=== PATIENT | female | born 1965 | race Two or more races ===

== ENCOUNTER 2024-12-30 17:03 | Inpatient (IN) | payer MEDICAID, OTHER ==
[~2024-12-30] VITALS: Ht 165.1 cm; Wt 83.5 kg
[2024-12-30] VITALS (21 sets, daily range): BP systolic 78–162; BP diastolic 14–102; PULSE 88–107; RESP 18–35; TEMP 97.7–98; O2SAT 96–100
--- NOTE | 2024-12-30 17:40 | ED.PDOC ---
HPI Comments This is a 59 year old female BIBA presenting to the ED with chief complaint of SOB. EMS reports patient has been experiencing SOB with associated nausea, vomiting, diaphoresis, pale skin, and hypotension for the past 2 days. EMS relays that the patient's BG was noted to be 337. Patient coded prior to history being obtained. Patient was intubated and ROSC was obtained. No further history can be obtained at this time. 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 Family History Family History: Reviewed,noncontributory to illness Social History Smoker: Unknown Alcohol: Unknown Drugs: Unknown Lives In: Home Constitutional: reports: diaphoresis; denies: chills, fatigue, fever, malaise, sweats, weakness, others EENTM: denies: blurred vision, double vision, ear bleeding, ear discharge, ear drainage, ear pain, ear ringing, eye pain, eye redness, hearing loss, mouth pain, mouth swelling, nasal discharge, nose bleeding, nose congestion, nose pain, photophobia, tearing, throat pain, throat swelling, voice changes, others Respiratory: reports: shortness of breath; denies: cough, hemoptysis, orthopnea, SOB at rest, SOB with excertion, stridor, wheezing, others Cardiovascular: denies: chest pain, dizzy spells, diaphoresis, Dyspnea on exertion, edema, irregular heart beat, left arm pain, lightheadedness, palpitations, PND, syncope, others Gastrointestinal: reports: nausea, vomiting; denies: abdomen distended, abdominal pain, blood streaked bowels, constipated, diarrhea, dysphagia, difficulty swallowing, hematemesis, melena, poor appetite, poor fluid intake, rectal bleeding, rectal pain, others Genitourinary: denies: abnormal vagina bleeding, burning, dyspareunia, dysuria, flank pain, frequency, hematuria, incontinence, pain, , vagina discharge, urgency, others Neurological: denies: dizziness, fainting, headache, left sided numbness, left sided weakness, numbness, paresthesia, pre-existing deficit, right sided numbness, right sided weakness, seizure, speech problems, tingling, tremors, weakness, others Musculoskeletal: denies: back pain, gout, joint pain, joint swelling, muscle pain, muscle stiffness, neck pain, others Integumetry: reports: change in color; denies: bruises, change in hair/nails, dryness, laceration, lesions, lumps, rash, wounds, others Allergic/Immunocompromised: denies: Difficulty Healing, Frequent Infections, Hives, Itching, others Hematologic/Lymphatic: denies: anemia, blood clots, easy bleeding, easy bruising, swollen glands, others Endocrine: denies: excessive hunger, excessive sweating, excessive thirst, excessive urination, flushing, intolerance to cold, intolerance to heat, unexplained weight gain, unexplained weight loss, others Psychiatric: denies: anxiety, bipolar disorder, depression, hopeless, panic disorder, schizophrenia, sleepless, suicidal, others All Other Systems: Reviewed and Negative Physical Exam General Appearance: Severe Distress HEENT: Normal ENT Inspection, Pharynx Normal, TMs Normal Neck: Full Range of Motion, Non-Tender, Normal, Normal Inspection Respiratory: Accessory Muscle Use, Respiratory Distress Cardiovascular: No Edema, No JVD, No Murmur, No Gallop, Normal Peripheral Pulses, Regular Rate/Rhythm Breast Exam: Deferred Gastrointestinal: No Organomegaly, Non Tender, No Pulsatile Mass, Normal Bowel Sounds, Soft Genitalia: Deferred Pelvic: Deferred Rectal: Deferred Extremities: No calf tenderness, Normal capillary refill, Normal inspection, Normal range of motion, Non-tender, No pedal edema Musculoskeletal : Apperance: Normal Neurologic: Alert Cerebellar Function: NOT DONE Reflexes: NOT DONE Skin: Dry, Normal Color, Warm Peripheral Pulses: 0 Radial (R), 0 Radial (L) Lymphatic: No Adenopathy Was a procedure done? Was a procedure done?: Yes Sedation Sedation?: No Intubation Indication: Respiratory Insufficiency, Airway Protection Prep: Preoxygenation Intubation Approach: Orotracheal Intubation size: cm (8) Informed consent obtained: Yes Risks/benefits/alt described: Yes CP Differential Dx Differential Diagnosis: A-fib, A-Flutter, Angina, Anxiety / Panic Attack, Atrial Dysrhythmia, Electrolyte Disorder X-Ray, Labs, Meds, VS Vital Signs Date Time Temp Pulse Resp B/P (MAP) Pulse Ox O2 Delivery O2 Flow Rate FiO2 12/30/24 17:15 20 Non-Rebreather 15 N/A 12/30/24 17:09 97.8 120 20 70/47 85 97.8 Patient disoriented. Shortness a breath. Hypotensive. Tachycardic. Lost pulses. CPR in progress. Intubate the patient. Was able to revive the patient. Sepsis protocol. Possible acute respiratory failure from COPD exacerbation. Do not have a good history. Continue monitoring. Time of 1ST Reevaluation: 18:37 Reevaluation 1ST: Unchanged Patient Education/Counseling: Diagnosis, Treatment Family Education/Counseling: No Family Present SEPSIS Sepsis Screen Date sepsis recognized/suspect: Dec 30, 2024 Time Sepsis recognized/suspect: 1699 Recent Procedure: No On Antibiotic Therapy: No Respiratory Rate >20: No Heart Rate >90: No Temp<36 C (96.8 F) or >38.3 C: No SBP <90 or MAP <65 mmHG: No New Acute Mental Status Change: No Is the patient on CPAP, BIPAP,: No Physician Orders Complete Blood Count (12/30/24 17:38) Comprehensive Metabolic Panel (12/30/24 17:38) PTPTT (12/30/24 17:38) Urinalysis (12/30/24 17:38) Chest Portable (12/30/24 17:38) Accucheck (12/30/24 17:38) Blood Culture (12/30/24 17:38) Vancomycin 1gm/200ml Pm (12/30/24 17:45) Lactic Acid W/ Reflex Order (12/30/24 18:00) Lactic Acid W/ Reflex Order (12/30/24 20:00) Cefepime 1gm/ 50ml (Maxipime 1gm/50ml) (12/30/24 22:00) Notify Md If Map <65 Or Bp<90 (12/30/24 17:38) If Map<65 Start Vasopressor (12/30/24 17:38) Sepsis Reassesment After Fluid (12/30/24 18:38) Sodium Chloride 0.9% (12/30/24 17:45) Sodium Chloride 0.9% (12/30/24 17:45) Epinephrine 4mg/250ml (12/30/24 18:00) Communication Order (12/30/24 17:48) Methylprednisolone Sod Succ (Solu Medrol (12/30/24 18:00) Vital Signs Date Time Temp Pulse Resp B/P (MAP) Pulse Ox O2 Delivery O2 Flow Rate FiO2 12/30/24 17:15 20 Non-Rebreather 15 N/A 12/30/24 17:09 97.8 120 20 70/47 85 97.8 Departure 1 Departure Time of Disposition: 17:53 Impression: Primary Impression: Acute respiratory failure Qualified Codes: J96.01 - Acute respiratory failure with hypoxia Additional Impression: Cardiac arrest Disposition: ADMITTED INPATIENT Admit to: ICU Condition: Guarded Critical Care Note Critical Care Time?: Yes (90 min-critical care time only) Stability Stability form required: No Heart Score Heart Score: Heart Score Response (Comments) Value History Highly Suspicious 2 EKG Normal 0 Age 45-64 1 Risk Factors No known risk factors 0 Troponin Normal limit 0 Total 3 I personally scribed for BLAIR ARANGO MD ([email or web address]) on 12/30/24 at 17:40. Electronically submitted by Adalberto Stewart ([email or web address]). BLAIR ARANGO MD Dec 30, 2024 17:40
[2024-12-30] MEDS: SODIUM CHLORIDE 0.9% 1,000 ML IV ONE ×3 (17:45→19:15)
[2024-12-30] MEDS ORDERED: CEFEPIME 1GM/ 50ML 50 ML IV SCH ×2 (17:51→18:45)
--- NOTE | 2024-12-30 17:56 | RESUS ---
CODE BLUE ASSESSSMENT History of Events History of Events: Patient brought to ER via EMS as a "CODE 3 ALERT". Upon arrival to ER patient awake and in obvious respiratory distress. Per EMS, initial c/o nausea/ vomiting and hypotension. While primary RN attempted to establish care, patient became unresponsive and agonal respirations noted. No pulse detected upon palpation and asystole on bedside cardiac exercise physiologist. CPR initiated by hospital staff. Initial Information Date: Dec 30, 2024 Time: 17:26 Location of Arrest: ER Arrest Witnessed: Yes CPR started initial time: 17:26 CPR started by whom: Hospital Staff Last seen well: 1724 Type of arrest: Cardiac, Respiratory Spontaneous Respirations: No Pulse Present: No Monitoring: Pulse Oximetry, Apnea, Telemetry Crash Cart Opened and Supplies: Yes Airway Ventilation Breathing at Onset: Agonal Oxygen Delivery Method: Ambu-Bag Time of first Assisted Ventila: 17:26 Artificial Ventilation: Bag/Mask Intubation Size: 8.0 cuffed Intubated by: Dr Dela Cruz Intubation Attempts: 2 Intubated orally: Yes Intubated Nasaly: No Tube secured at: 22 Cricoid pressure done: No CO2 indicator used: Yes Confirmation: Auscultation, Exhaled CO2 Circulation Circulation #1: Time: 17:28 Circulation Comment: asystole Circulation #2: Time: 17:30 Circulation Comment: asystole Circulation #3: Time: 17:32 Pulse Rate (adult): 104 Circulation Comment: ROSC. Not able to obtain BP at this time Procedure - Intraosseous Time of intraosseous: 17:28 Site of Intraosseous: Tibia milagro-medial Intraosseous inserted by: perlite grinderIVÁN Raza Number of attempts for Intraos: 1 Medications & Response Medications and Responses #1: Medication Time: 17:28 ADULT Medications Given ADULT: Epinephrine 1 mg, Sodium Bacarbinate 50 meq Route of Administration: IO Medications and Responses #2: Medication Time: 17:31 ADULT Medications Given ADULT: Sodium Bacarbinate 50 meq, Calcium Chloride 10 mL Route of Administration: IO Nurses Notes Raj Coma Scale Eye Opening: None (1) [place] Coma Scale Verbal: None (1) Raj Coma Scale Motor: None (1) Pupil Reaction: Sluggish Time Code Ended Time Code Ended: 17:32 Post Arrest Status: Ventilated Outcome of code: Successful Code Team Present: Dr Jose De Jesus Trent perlite grinderIVÁN Raza RN Crystal RT Eva ROSC Time of ROSC: 17:32 Crystal Parrish Dec 30, 2024 17:56
[2024-12-30] MEDS: EPINEPHrine HCL 250 ML IV SCH (18:00)
[2024-12-30 18:04] LABS: Hematocrit 42.0 % (36.0-46.0); Hemoglobin 13.1 g/dL (12.2-16.2); Mean Corpuscular Hemoglobin 29.8 pg (28.0-32.0); Mean Corpuscular Volume 95.3 fL (80.0-100.0); Nucleated Red Blood Cells % 0.2 %
--- NOTE | 2024-12-30 18:09 | DVH ---
CHEST RADIOGRAPH Indication: sob Technique: Single frontal view of the chest was obtained COMPARISON: None FINDINGS: Lines and Tubes: Endotracheal tube in satisfactory position. Lungs: Increased interstitial prominence Pleura: No effusion. No pneumothorax. Cardiomediastinal contours: Cardiomegaly Bones: Unremarkable IMPRESSION: Increased interstital prominence. This may represent pulmonary vascular congestion or viral pneumonia . Clinical correlation advised.
[2024-12-30] MEDS: MIDAZOLAM DRIP 50 mg/50mL 50 ML IV SCH (18:15)
[2024-12-30 18:18] LABS: INR 1.13 (0.9-1.15); Partial Thromboplastin Time 30.5 SEC (24.5-34.5); Prothrombin Time 11.8 sec (9.3-11.8)
[2024-12-30 18:20] LABS: Albumin 4.1 g/dL (3.2-4.8); Anion Gap 23 (5-15); BUN/Creatinine Ratio 13.6 (10.0-20.0); Blood Urea Nitrogen 20 mg/dL (9-23); Chloride 100 mmol/L (98-107); Sodium 142 mmol/L (136-145); Total Protein 6.4 g/dL (5.7-8.2)
[2024-12-30 18:21] LABS: Bilirubin, Total 0.6 mg/dL (0.2-1.0)
[2024-12-30 18:22] LABS: Alanine Aminotransferase 521 U/L (7-40); Alkaline Phosphatase 154 U/L (46-116); Calcium 10.8 mg/dL (8.7-10.4); Carbon Dioxide 19 mmol/L (20-31); Potassium 3.1 mmol/L (3.5-5.1)
[2024-12-30 18:23] LABS: Glucose 438 mg/dL (74-106); Lactic Acid w/Reflex 13.1 mmol/L (0.4-2.0)
[2024-12-30] MEDS: fentaNYL Drip 2500mCg/250mlNS 250 ML IV SCH (18:42)
[2024-12-30] MEDS: EPINEPHrine HCL 1 MG/10 ML SYRG ONE (18:43)
[2024-12-30] MEDS: MIDAZOLAM DRIP 50 mg/50mL 50 ML IV ONE (18:44)
[2024-12-30] MEDS: fentaNYL Drip 2500mCg/250mlNS 250 ML IV ONE (18:45)
--- NOTE | 2024-12-30 18:47 | DVHNC2 ---
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 My hands were washed immediately prior to the procedure. I wore a surgical cap, mask with protective eyewear, sterile gown and sterile gloves throughout the procedure. The RIGHT inguinal region was prepped using chlorhexidine scrub and draped in sterile fashion using a full drape and sterile probe cover and sterile gel employed. The femoral pulse was identified. Anesthesia was achieved using 1% lidocaine. Palpating the femoral pulse throughout the procedure, the introducer needle was inserted medial to the femoral artery, inferior to the inguinal crease and into the femoral vein. Venous blood was withdrawn. The syringe was removed and a guidewire was advanced into the introducer needle. A small incision was made at the skin surface with a scalpel and the introducer needle was exchanged for a dilator over the guidewire. After appropriate dilation was obtained, the dilator was exchanged over the wire for a _ central venous catheter. The wire was removed and the catheter was sutured in place at 2 places. A sterile sorbaview shield was placed over the catheter at the insertion site. The patient tolerated the procedure without any hemodynamic compromise. At time of procedure completion, all ports aspirated and flushed properly. Estimated blood loss is less than 5 ml. Date of Service: Dec 30, 2024 Billing Provider: BLAIR ARANGO MD Common Visit Codes: PROCEDURE ONLY BENNY LANDRY RESIDENT Dec 30, 2024 18:47
--- NOTE | 2024-12-30 18:48 | ECG ---
[facility] Test Date: 2024-12-30 Test Time: 17:18:13 Pat Name: REBECA WOODS Department: ED Room: [address] [place] [address] Gender: F Lube Attendant: [place] : 1965 Requested By: BLAIR ARANGO Order Number: [id number] Reading MD: Truong Gomez Measurements Intervals [place] Rate: 108 P: 97 OR: 158 QRS: 87 QRSD: 87 T: 17 QT: 367 QTc: 492 Interpretive Statements Sinus tachycardia Atrial premature complex Anteroseptal infarct, age indeterminate Electronically Signed On 12-30-2024 22:12:54 PDT by Truong Gomez Please click the below link to view image of tracing.
[2024-12-30] MEDS: VANCOMYCIN 1GM/200ML PM 200 ML IV ONE (18:51)
[2024-12-30] MEDS ORDERED: VANCOMYCIN PER PHARMACY 0 MG IV SCH (19:15)
[2024-12-30] MEDS ORDERED: MORPHINE SULFATE INJ 2 MG/ml SYRG IV PRN (19:15)
[2024-12-30] MEDS ORDERED: NITROGLYCERIN 0.4 MG SL TAB SL PRN (19:15)
--- NOTE | 2024-12-30 19:28 | DVH ---
CHEST RADIOGRAPH Indication: OG/NG PLACEMENT Technique: Single frontal view of the chest was obtained Comparison: XY CHEST PORTABLE on DOS: 12/30/24 FINDINGS: Lines and Tubes: Endotracheal tube is in satisfactory position. Enteric tube with tip and side port b elow the GE junction. Lungs: No focal consolidation. Mild interstitial prominence in the colon slightly improved from prior imaging. Pleura: No effusion. No pneumothorax. Cardiomediastinal contours: Unremarkable Bones: No acute osseous abnormality. IMPRESSION: Interval improvement in the interstitial prominence which may be due to improving pulmonary vascular congestion / interstitial pneumonitis. Enteric tube with tip and side port below the GE junction. Endotracheal tube is in satisfactory posit ion.
[2024-12-30 19:42] LABS: Base Excess -10.7 mmol/L (-2.0-3.0)
[2024-12-30] MEDS: ACCU-CHEK COMFORT CURVE STRIP VI SCH (20:00)
[2024-12-30] MEDS: InsuLIN REG 1unit/0.01ml Soln (100units/ml) SC SCH (20:55)
[2024-12-30] MEDS: PIPERACILLIN-TAZOB 3.375GM 100 ML IV SCH (21:17)
[2024-12-30] MEDS: methylPREDNISolone SOD SUCC 125 MG/2 ML VL IV ONE (21:17)
[2024-12-30] MEDS: NOREPINEPHRINE 8 MG/250ML KIT 250 ML IV ONE (21:49)
--- NOTE | 2024-12-30 22:59 | DVHHP2 ---
History of Present Illness Reason for Visit: Shortness of breath History of Present Illness 59-year-old female presented with complaints of shortness for breath. Patient was emergently intubated in the emergency department for airway protection. Currently sedated and intubated. Unable to obtain further history. Past Medical History Unknown Past Surgical History Unknown Family History Unknown Smoke: No ALCOHOL: none Drugs: None Review of Systems Review of Systems Unable to complete review of systems. Patient is sedated and intubated. Allergies: Coded Allergies: NO KNOWN ALLERGIES (Unverified , 12/30/24) Medications Current Medications Medications Dose Ordered Sig/Kimberly Route Start Time Stop Time Status Last Admin Dose Admin Epinephrine HCl 250 ml @ 7.5 mls/hr Q24H IV 12/30/24 18:00 12/30/24 18:00 7.5 MLS/HR Midazolam HCl 50 ml @ 1 mls/hr Q24H IV 12/30/24 18:15 12/30/24 21:36 10 MLS/HR Fentanyl Citrate 250 ml @ 2.5 mls/hr Q24H IV 12/30/24 18:15 12/30/24 18:42 2.5 MLS/HR Nitroglycerin 0.4 mg Q5MINP PRN SL 12/30/24 19:15 Morphine Sulfate 2 mg Q30M PRN IV 12/30/24 19:15 Piperacillin Sod/ Tazobactam Sod 100 ml @ 25 mls/hr Q8HR IV 12/30/24 22:00 12/30/24 21:17 25 MLS/HR Vancomycin HCl 0 ml @ 0 mls/hr UD IV 12/30/24 19:15 UNV Diagnostic Test (Pha) 1 strip IQ4HR 12/30/24 20:00 12/30/24 20:00 1 STRIP Insulin Human Regular IQ4HR SC 12/30/24 20:00 12/30/24 20:55 8 UNITS Dextrose 50 ml UD PRN IV 12/30/24 19:15 Ondansetron HCl 4 mg Q4HP PRN IV 12/30/24 19:15 Acetaminophen 650 mg Q6HP PRN PO 12/30/24 19:15 Norepinephrine Bitartrate 250 ml @ 3.75 mls/hr Q24H IV 12/30/24 21:00 Exam Vital Signs Vital Signs Date Time Temp Pulse Resp B/P (MAP) Pulse Ox O2 Delivery O2 Flow Rate FiO2 12/30/24 22:05 98.0 90 24 79/46 100 60 98.0 12/30/24 19:19 Mechanical Ventilator+ 12/30/24 17:15 15 Exam Gen: 59-year-old female in mild distress Skin: Warm, dry, normal color and texture, no rash. HEENT: Normocephalic atraumatic, mucous membranes moist and pink. Neck: Cervical and supraclavicular nodes normal without enlargement, trachea is midline, thyroid gland is normal without masses. Pulmonary: Intubated Cardiac: Regular rate and rhythm. No murmur Abdomen: Soft, nontender, nondistended, bowel sounds present all 4 quadrants, no guarding, no rigidity, no organomegaly. Extremities: No cyanosis, clubbing, no edema Neuro: Sedated Labs/Xrays ORDERING PHYSICIAN: BLAIR BILLINGSLEY MD PROCEDURE(s): CXR1 - CHEST XRAY 1 VIEW REASON: OG/NG PLACEMENT ORDER NUMBER(s): [id number], ACCESSION NUMBER(s): [id number] CHEST RADIOGRAPH Indication: OG/NG PLACEMENT Technique: Single frontal view of the chest was obtained Comparison: XY CHEST PORTABLE on DOS: 12/30/24 FINDINGS: Lines and Tubes: Endotracheal tube is in satisfactory position. Enteric tube with tip and side port below the GE junction. Lungs: No focal consolidation. Mild interstitial prominence in the colon slightly improved from prior imaging. Pleura: No effusion. No pneumothorax. Cardiomediastinal contours: Unremarkable Bones: No acute osseous abnormality. IMPRESSION: Interval improvement in the interstitial prominence which may be due to improving pulmonary vascular congestion / interstitial pneumonitis. Enteric tube with tip and side port below the GE junction. Endotracheal tube is in satisfactory position. Labs Test 12/30/24 20:42 12/30/24 19:47 12/30/24 19:30 12/30/24 17:41 Range/Units POC Glucose 315 H 70-106 mg/dl Lactic Acid Level 8.5 *H 0.4-2.0 mmol/L Blood Gas Specimen Type Arterial Blood Gas Sample Site Right radial Blood Gas Patient Temperature 37.0 Arterial Blood Date Drawn [id number] Arterial Blood pH 7.228 *L 7.350-7.450 Arterial Blood Partial Pressure CO2 39.7 32.0-45.0 mmHg Arterial Blood Partial Pressure O2 163.3 H 83.0-108.0 mmHg Arterial Blood HCO3 16.2 L 21.0-28.0 mmol/L Arterial Blood Oxygen Saturation 98.6 H 94.0-98.0 % Arterial Blood Base Excess -10.7 L -2.0-3.0 mmol/L Arterial Blood Oxyhemoglobin 97.5 94.0-98.0 % Arterial Blood Carboxyhemoglobin 0.5 0.5-1.5 % Arterial Blood Methemoglobin 0.6 0.0-1.5 % Sunday Test Modified Blood Gas Total Hemoglobin 12.60 12.0-16.0 g/dL Blood Gas Set Respiration Rate 18.0 Blood Gas Modality Vent - ac FiO2 % 100.0 Blood Gas Tidal Volume 450.0 Blood Gas PEEP or CPAP 5.0 Blood Gas Critical Value Read Back Yes Blood Gas Notified Whom Md stephani billingsley Blood Gas Notified Time [id number] Blood Gas Notified By Rt halina cruz White Blood Count 17.0 H 4.4-10.8 10^3/uL Red Blood Count 4.41 4.0-5.20 10^6/uL Hemoglobin 13.1 12.2-16.2 g/dL Hematocrit 42.0 36.0-46.0 % Mean Corpuscular Volume 95.3 80.0-100.0 fL Mean Corpuscular Hemoglobin 29.8 28.0-32.0 pg Mean Corpuscular Hemoglobin Concent 31.3 L 32.0-36.0 g/dL Red Cell Distribution Width 15.7 H 11.8-14.3 % Platelet Count 167 140-450 10^3/uL Mean Platelet Volume 8.4 6.9-10.8 fL Neutrophils (%) (Auto) 48.5 37.0-80.0 % Lymphocytes (%) (Auto) 41.8 10.0-50.0 % Monocytes (%) (Auto) 9.0 0.0-12.0 % Eosinophils (%) (Auto) 0.2 0.0-7.0 % Basophils (%) (Auto) 0.5 0.0-2.0 % Neutrophils # (Auto) 8.2 1.6-8.6 10 ^3/uL Lymphocytes # (Auto) 7.1 H 0.4-5.4 10 ^3/uL Monocytes # (Auto) 1.5 H 0-1.3 10 ^3/uL Eosinophils # (Auto) 0 0-0.8 10 ^3/uL Basophils # (Auto) 0.1 0-0.2 10 ^3/uL Nucleated Red Blood Cells 0.2 % Prothrombin Time 11.8 9.3-11.8 sec Prothrombin Time INR 1.13 0.9-1.15 Activated Partial Thromboplast Time 30.5 24.5-34.5 SEC Sodium Level 142 136-145 mmol/L Potassium Level 3.1 L 3.5-5.1 mmol/L Chloride Level 100 98-107 mmol/L Carbon Dioxide Level 19 L 20-31 mmol/L Anion Gap 23 H 5-15 Blood Urea Nitrogen 20 9-23 mg/dL Creatinine 1.47 H 0.550-1.02 mg/dL Glomerular Filtration Rate Calc 40 >90 mL/min BUN/Creatinine Ratio 13.6 10.0-20.0 Serum Glucose 438 *H 74-106 mg/dL Calcium Level 10.8 H 8.7-10.4 mg/dL Total Bilirubin 0.6 0.2-1.0 mg/dL Aspartate Amino Transferase (AST) 610 H 13-40 U/L Alanine Aminotransferase (ALT) 521 H 7-40 U/L Alkaline Phosphatase 154 H 46-116 U/L Total Protein 6.4 5.7-8.2 g/dL Albumin 4.1 3.2-4.8 g/dL SEPSIS Sepsis Screen Date sepsis recognized/suspect: Dec 30, 2024 Time Sepsis recognized/suspect: 1699 Recent Procedure: No On Antibiotic Therapy: No Respiratory Rate >20: No Heart Rate >90: No Temp<36 C (96.8 F) or >38.3 C: No SBP <90 or MAP <65 mmHG: No New Acute Mental Status Change: No Is the patient on CPAP, BIPAP,: No Physician Orders Urinalysis (12/30/24 17:38) Chest Portable (12/30/24 17:38) Accucheck (12/30/24 17:38) Blood Culture (12/30/24 17:38) Notify Md If Map <65 Or Bp<90 (12/30/24 17:38) If Map<65 Start Vasopressor (12/30/24 17:38) Sepsis Reassesment After Fluid (12/30/24 18:38) Sodium Chloride 0.9% (12/30/24 17:45) Epinephrine Hcl (12/30/24 18:00) Communication Order (12/30/24 17:48) Head Without Contrast (12/30/24 17:54) Ventilator Orders (12/30/24 17:58) Respiratory Culture W/ Gs (12/30/24 17:58) Abg W/ Co-Ox (12/30/24 18:30) Midazolam Drip 50 Mg/50ml (Versed Drip 5 (12/30/24 18:15) Fentanyl Drip 2500mcg/250mlns (12/30/24 18:15) Rass Sedation Scale Q1HR (12/30/24 18:01) Electrocardigram (12/30/24 18:05) Chest Xray 1 View (12/30/24 18:44) Insert/Manage Urinary Catheter QSHIFT (12/30/24 18:44) Communication Order (12/30/24 18:44) Admit (12/30/24 19:07) Nitroglycerin Sublingual (Ntrostat Subli (12/30/24 19:15) Morphine Sulfate Injection (12/30/24 19:15) Stat Ekg For Chest Pain (12/30/24 19:07) Notify Md Of Changes From Base (12/30/24 19:07) Sack Repairer For 24 Hours (12/30/24 19:07) Emergency Dysrhythmia Protocol (12/30/24 19:07) Rhythm Strips Once Every Shift (12/30/24 19:07) Oxygen By Nasal Cannula (12/30/24 19:07) Piperacillin-Tazob 3.375gm (Zosyn 3.375g (12/30/24 22:00) Vancomycin Per Pharmacy (12/30/24 19:15) Sodium Chloride 0.9% (12/30/24 19:15) Glucose Blood (Accu-Chek Comfort Curve T (12/30/24 20:00) Insulin R (Human) (Insulin R) (12/30/24 20:00) Dextrose 50% Syringe (12/30/24 19:15) Ondansetron Hcl (Zofran) (12/30/24 19:15) Complete Blood Count (12/31/24 04:00) Comprehensive Metabolic Panel (12/31/24 04:00) Condition: Unstable (12/30/24 19:14) Acetaminophen Tablet (Tylenol Tablet) (12/30/24 19:15) Maintain Bed Rest (12/30/24 19:14) Sequential Compression Device (12/30/24 ) Vancomycin,Random (12/31/24 05:00) Norepinephrine 8 Mg/250ml Kit (Levophed) (12/30/24 21:00) Vancomycin 750mg Kit (Vancomycin Hcl) (12/30/24 22:30) Vital Signs Date Time Temp Pulse Resp B/P (MAP) Pulse Ox O2 Delivery O2 Flow Rate FiO2 12/30/24 22:05 98.0 90 24 79/46 100 60 98.0 12/30/24 21:54 90 24 100 60 12/30/24 21:49 79/46 12/30/24 21:36 93/30 12/30/24 20:00 91 12/30/24 19:46 89 32 162/62 (95) 100 100 12/30/24 19:20 141/76 12/30/24 19:19 93 35 100 Mechanical Ventilator+ 100 100 12/30/24 19:16 93 29 141/76 (97) 95 12/30/24 18:45 137/60 12/30/24 18:44 137/60 12/30/24 18:42 137/60 12/30/24 18:18 98.0 110 29 137/60 (85) 95 98.0 12/30/24 18:16 137/60 12/30/24 18:15 137/60 12/30/24 18:03 74 12/30/24 18:00 137/60 12/30/24 17:56 104 Ambu-Bag 12/30/24 17:40 107 22 97 100 12/30/24 17:18 108 12/30/24 17:15 20 Non-Rebreather 15 N/A 12/30/24 17:09 97.8 120 20 70/47 85 97.8 Laboratory Tests Test 12/30/24 17:41 12/30/24 19:47 Lactic Acid Level 13.1 mmol/L (0.4-2.0) *H 8.5 mmol/L (0.4-2.0) *H White Blood Count 17.0 10^3/uL (4.4-10.8) H Medications Medications Dose Ordered Sig/Kimberly Route Start Time Stop Time Status Last Admin Dose Admin Diagnostic Test (Pha) 1 strip IQ4HR 12/30/24 20:00 12/30/24 20:00 1 STRIP Epinephrine HCl 250 ml @ 7.5 mls/hr Q24H IV 12/30/24 18:00 12/30/24 18:00 7.5 MLS/HR Fentanyl Citrate 250 ml @ 2.5 mls/hr Q24H IV 12/30/24 18:15 12/30/24 18:42 2.5 MLS/HR Insulin Human Regular IQ4HR SC 12/30/24 20:00 12/30/24 20:55 8 UNITS Methylprednisolone Sodium Succinate 125 mg ONCE ONCE IV 12/30/24 18:00 12/30/24 18:01 DC 12/30/24 21:17 125 MG Midazolam HCl 50 ml @ 1 mls/hr Q24H IV 12/30/24 18:15 12/30/24 21:36 10 MLS/HR Norepinephrine Bitartrate 250 ml @ ud STK-MED ONCE IV 12/30/24 21:47 12/30/24 21:44 DC 12/30/24 21:49 2 MLS/HR Piperacillin Sod/ Tazobactam Sod 100 ml @ 25 mls/hr Q8HR IV 12/30/24 22:00 12/30/24 21:17 25 MLS/HR Sodium Chloride 1,000 ml @ 100 mls/hr Q10H ONCE IV 12/30/24 19:15 12/31/24 05:14 12/30/24 19:15 100 MLS/HR Sodium Chloride 1,000 ml @ 1,000 mls/hr Q1H ONCE IV 12/30/24 17:45 12/30/24 18:44 DC 12/30/24 18:50 1,000 MLS/HR Vancomycin HCl 200 ml @ 200 mls/hr ONCE ONCE IV 12/30/24 17:45 12/30/24 18:44 DC 12/30/24 18:51 200 MLS/HR Assessment/Plan Assessment/Plan Assessment Cardiopulmonary arrest Possible pneumonia Sepsis Multi organ failure Plan Admit the patient to ICU to the hospitalist CT of the head pending since admission Zosyn/vancomycin Continue treatment per orders Total critical care time excluding procedures performed is 55 minutes. Plan discussed with: Other My Orders Orders - CRUZ AARON AGACNP Procedure Category Date Status Time Admit ADMIT 12/30/24 Transmitted 19:07 Nitroglycerin PHA 12/30/24 In Process Sublingual (Ntrostat 19:15 Morphine Sulfate PHA 12/30/24 In Process Injection 19:15 Stat Ekg For Chest [facility] 12/30/24 In Process Pain 19:07 Notify Md Of Changes [facility] 12/30/24 In Process From Base 19:07 Sack Repairer For [facility] 12/30/24 In Process 24 Hours 19:07 Emergency Dysrhythmia [facility] 12/30/24 In Process Protocol 19:07 Rhythm Strips Once [facility] 12/30/24 In Process Every Shift 19:07 Oxygen By Nasal RT 12/30/24 Transmitted Cannula 19:07 Piperacillin-Tazob PHA 12/30/24 In Process 3.375gm (Zosyn 3.375g 22:00 Vancomycin Per PHA 12/30/24 Pending Pharmacy 19:15 Sodium Chloride 0.9% PHA 12/30/24 In Process 19:15 Glucose Blood PHA 12/30/24 In Process (Accu-Chek Comfort 20:00 Insulin R (Human) PHA 12/30/24 In Process (Insulin R) 20:00 Dextrose 50% Syringe PHA 12/30/24 In Process 19:15 Ondansetron Hcl PHA 12/30/24 In Process (Zofran) 19:15 Complete Blood Count LAB 12/31/24 Verified 04:00 Comprehensive LAB 12/31/24 Verified Metabolic Panel 04:00 Condition: Unstable [facility] 12/30/24 In Process 19:14 Acetaminophen Tablet PHA 12/30/24 In Process (Tylenol Tablet) 19:15 Maintain Bed Rest [facility] 12/30/24 In Process 19:14 Sequential [facility] 12/30/24 In Process Compression Device Vancomycin,Random LAB 12/31/24 Verified 05:00 Norepinephrine 8 PHA 12/30/24 In Process Mg/250ml Kit 21:00 Vancomycin 750mg Kit PHA 12/30/24 In Process (Vancomycin Hcl) 22:30 Date of Service: Dec 30, 2024 Billing Provider: CRUZ AARON Common Visit Codes: [id number] CARE 30-74 MIN CRUZ AARON Dec 30, 2024 22:59
--- NOTE | 2024-12-30 23:39 | DVH ---
Indication: altered Comparison: None Technique: Utilizing a multislice CT scanner, a CT scan of the brain was performed without intravenou s contrast. Coronal and sagittal reformatted images. All CT scans at this facility use dose modulation, iterative reconstruction, and/or weight based dosi ng when appropriate to reduce radiation dose to as low as reasonably achievable. Findings: There is no acute infarct, intracranial hemorrhage, or mass effect. There is no hydrocephalus or sign ificant midline shift. There is mild chronic microvascular ischemic changes . No acute, depressed calvarial fractures. No large scalp hematomas. Impression: 1. No acute intracranial process.
[2024-12-30] MEDS: VANCOMYCIN 750mg/100mL D5W or NS KIT IV ONE (23:52)
[2024-12-31] VITALS (93 sets, daily range): BP systolic 77–142; BP diastolic 35–70; PULSE 68–94; RESP 12–23; TEMP 97.5–101.1; O2SAT 85–100
[2024-12-31 05:20] LABS: Hematocrit 39.3 % (36.0-46.0); Hemoglobin 13.1 g/dL (12.2-16.2); Mean Corpuscular Hemoglobin 30.6 pg (28.0-32.0); Mean Corpuscular Volume 91.8 fL (80.0-100.0); Nucleated Red Blood Cells % 0.1 %
[2024-12-31 05:39] LABS: Albumin 4.2 g/dL (3.2-4.8); Anion Gap 13 (5-15); BUN/Creatinine Ratio 10.9 (10.0-20.0); Bilirubin, Total 0.4 mg/dL (0.2-1.0); Blood Urea Nitrogen 23 mg/dL (9-23); Calcium 9.3 mg/dL (8.7-10.4); Carbon Dioxide 22 mmol/L (20-31); Chloride 107 mmol/L (98-107); Potassium 4.7 mmol/L (3.5-5.1); Sodium 142 mmol/L (136-145); Total Protein 6.9 g/dL (5.7-8.2)
[2024-12-31 05:43] LABS: Alanine Aminotransferase 783 U/L (7-40); Alkaline Phosphatase 151 U/L (46-116); Glucose 212 mg/dL (74-106)
[2024-12-31] MEDS: NOREPINEPHRINE 8 MG/250ML KIT 250 ML IV SCH (05:55)
[2024-12-31 06:41] LABS: Base Excess -9.6 mmol/L (-2.0-3.0)
[2024-12-31] MEDS: ACETAMINOPHEN 325 MG TAB PO PRN (06:45)
[2024-12-31 08:36] LABS: Urine Amorphous Crystal FEW /hpf (None Seen); Urine Protein, UAD 1+ (Negative); Urine WBC Clumps PRESENT /hpf (None Seen)
--- NOTE | 2024-12-31 11:03 | DVHPN2 ---
Subjective Patient intubated and sedated Reviewed: Care Plan, H&P, Labs, Medications, Previous Orders Changes from previous H/P or p: No Changes General: Per HPI Objective Vitals Vital Signs Date Time Temp Pulse Resp B/P (MAP) Pulse Ox O2 Delivery O2 Flow Rate FiO2 12/31/24 10:15 81 18 100 50 12/31/24 09:45 100.6 100.6 12/31/24 08:18 Mechanical Ventilator+ 12/30/24 17:15 15 Intake/Output Intake and Output 12/31/24 07:00 Intake Total 1291.5 ml Output Total 0 ml Balance 1291.5 ml Intake Oral 0 ml IV Total 1291.5 ml Output Urine Total 0 ml General Appearance: moderate distress HEENT: Atraumatic, PERRLA Lungs: Clear to auscultation, Normal air movement, Other (Mechanical ventilation) Cardiovascular: Normal S1, Normal S2 Abdomen: Normal bowel sounds, Soft, No tenderness, No hepatospenomegaly, No masses Genitourinary: No Apparent Abnormalities Musculoskeletal: Normal sensory function, Normal motor function Neuro: Normal gait, Normal speech Psych/Mental Status: Mental status NL, Mood NL Medications Current Medications Medications Dose Ordered Sig/Kimberly Route Start Time Stop Time Status Last Admin Dose Admin Epinephrine HCl 250 ml @ 7.5 mls/hr Q24H IV 12/30/24 18:00 12/30/24 18:00 7.5 MLS/HR Midazolam HCl 50 ml @ 1 mls/hr Q24H IV 12/30/24 18:15 12/31/24 06:39 8 MLS/HR Fentanyl Citrate 250 ml @ 2.5 mls/hr Q24H IV 12/30/24 18:15 12/30/24 18:42 2.5 MLS/HR Nitroglycerin 0.4 mg Q5MINP PRN SL 12/30/24 19:15 Morphine Sulfate 2 mg Q30M PRN IV 12/30/24 19:15 Piperacillin Sod/ Tazobactam Sod 100 ml @ 25 mls/hr Q8HR IV 12/30/24 22:00 12/31/24 05:06 25 MLS/HR Vancomycin HCl 0 ml @ 0 mls/hr UD IV 12/30/24 19:15 UNV Diagnostic Test (Pha) 1 strip IQ4HR 12/30/24 20:00 12/31/24 08:00 1 STRIP Insulin Human Regular IQ4HR SC 12/30/24 20:00 12/31/24 09:03 3 UNITS Dextrose 50 ml UD PRN IV 12/30/24 19:15 Ondansetron HCl 4 mg Q4HP PRN IV 12/30/24 19:15 Acetaminophen 650 mg Q6HP PRN PO 12/30/24 19:15 12/31/24 06:45 650 MG Norepinephrine Bitartrate 250 ml @ 3.75 mls/hr Q24H IV 12/30/24 21:00 12/31/24 05:55 26.25 MLS/HR Laboratory Results Laboratory Tests 12/31/24 04:55 Chemistry Test 12/30/24 17:41 12/31/24 04:55 Albumin 4.1 g/dL (3.2-4.8) 4.2 g/dL (3.2-4.8) Calcium Level 10.8 mg/dL (8.7-10.4) H 9.3 mg/dL (8.7-10.4) Total Protein 6.4 g/dL (5.7-8.2) 6.9 g/dL (5.7-8.2) Coagulation Test 12/30/24 17:41 Prothrombin Time 11.8 sec (9.3-11.8) Prothrombin Time INR 1.13 (0.9-1.15) Activated Partial Thromboplast Time 30.5 SEC (24.5-34.5) LFT Test 12/30/24 17:41 12/31/24 04:55 Alanine Aminotransferase (ALT) 521 U/L (7-40) H 783 U/L (7-40) H Alkaline Phosphatase 154 U/L (46-116) H 151 U/L (46-116) H Aspartate Amino Transferase (AST) 610 U/L (13-40) H 1068 U/L (13-40) H Total Bilirubin 0.6 mg/dL (0.2-1.0) 0.4 mg/dL (0.2-1.0) Urinalysis Test 12/31/24 08:15 Urine Color Yellow (Yellow) Urine Clarity Ex.turbid (Clear) Urine pH 5.5 (5.0-9.0) Urine Specific Morris 1.016 (1.001-1.035) Urine Protein 1+ (Negative) H Urine Ketones Trace (Negative) Urine Blood 3+ /uL (Negative) H Urine Nitrite Negative (Negative) Urine Bilirubin Negative (Negative) Urine Urobilinogen Normal mg/dL (Negative) Urine Leukocyte Esterase 3+ /uL (Negative) Urine RBC 61 /hpf (0 - 4) Urine WBC Clumps Present /hpf (None Seen) Urine Microscopic WBC 59 /HPF (0-5) H Urine Squamous Epithelial Cells Few /hpf (<5) Urine Amorphous Crystals Few /hpf (None Seen) Urine Bacteria Few /hpf (None Seen) H Urine Glucose 1+ mg/dL (Normal) H Blood Gas Results Test 12/30/24 19:30 12/31/24 06:19 Arterial Blood pH 7.228 (7.350-7.450) 7.229 (7.350-7.450) FiO2 % 100.0 50.0 Labs and/or images reviewed: Labs reviewed by me, Image(s) reviewed by me Assessment/Plan Assessment/Plan Impression: -cardiopulmonary arrest -acute hypoxic respiratory failure -septic shock -complicated cystitis -hypoglycemia, questionable underlying diabetes mellitus -shock liver -acute kidney injury, vasomotor nephropathy Plan: -continue current ventilator settings -normal saline 1 L bolus followed by NSS 75 mL/hour -echocardiogram -continue vasopressor therapy to keep map greater than 65 mm of mercury -continue current antibiotic therapy with Zosyn -CT scan of the chest, abdomen, pelvis -cobb cultures -PUD, DVT prophylaxis -check ESR, CRP, COVID-19, influenza a/B -repeat CMP, CBC, ABG, chest x-ray in a.m. Critical care time spent with patient discussing and formulating plan of care: 40 minutes. This does not include time spent performing procedures. This medical document was created using an electronic medical record system with [employer] dictation system. Although this document has been carefully reviewed, there may still be some phonetic and typographical errors. These areas are purely typographical due to imperfections of the software programs, and do not reflect any compromise in the patient's medical care. Plan discussed with: Patient, Other (RN) My Orders Orders - AUGUST BENDER NP Procedure Category Date Status Time Echo 2d Mode Cardiac US 12/31/24 Logged DOP 10:53 D-Dimer LAB 12/31/24 Transmitted 10:53 Hemoglobin A1c LAB 12/31/24 Transmitted 10:[address] 12/31/24 Logged 10:53 Ct Ab Pel Wo Con-No CT 12/31/24 Logged Oral Or Iv 10:53 Rapid Influenza A&B LAB 12/31/24 Transmitted 10:53 Covid19 Antigen Inés LAB 12/31/24 Transmitted NS PHA 12/31/24 Transmitted 11:00 NS PHA 12/31/24 Transmitted 11:00 Erythrocyte LAB 12/31/24 Transmitted Sedimentation Rate 10:53 C-Reactive Protein LAB 12/31/24 Transmitted 10:53 Albuterol Medneb PHA 12/31/24 Transmitted (Ventolin Medneb) 11:00 Ipratropium Medneb PHA 12/31/24 Transmitted (Atrovent Medneb) 11:00 Comprehensive LAB 01/01/25 Verified Metabolic Panel 04:00 Complete Blood Count LAB 01/01/25 Verified 04:00 Date of Service: Dec 31, 2024 Billing Provider: AUGUST BENDER NP Common Visit Codes: [id number] CARE 30-74 MIN AUGUST BENDER NP Dec 31, 2024 11:03
[2024-12-31] MEDS: SODIUM CHLORIDE 0.9% 1,000 ML IV SCH (12:52)
[2024-12-31] MEDS: SODIUM CHLORIDE 0.9% 1,000 ML IV ONE (12:52)
--- NOTE | 2024-12-31 17:50 | DVH ---
Indication: elevated LFTs Technique: CT axial images of the chest, abdomen and pelvis are obtained without contrast. Coronal an d sagittal reformats were obtained. Radiation Dose Information: CTDI volume is 23.39 mGy. Dose-length product is 1704 mGy*cm Comparison: XY CHEST XRAY 1 VIEW on DOS: 12/30/24, XY CHEST PORTABLE on DOS: 12/30/24 FINDINGS: There is limited interpretation of the chest, abdomen and pelvis without administration of intravenou s contrast. Endotracheal tube. No pneumothorax. Right upper, lower and left lower lobe consolidation/ atelectasis , ground-glass disease. Tiny bilateral pleural effusions. Heart normal in size. Nasogastric tube projects towards distal stomach. No supraclavicular or axillar y lymphadenopathy. Indeterminate right adrenal nodule measuring 2.4 cm. Left adrenal gland unremarkable. Spleen unrema rkable. Pancreas demonstrates fatty infiltration. Cholelithiasis, hydropic/ distended gallbladder. Left hepatic lobe hypodense lesion measuring 1.9 cm. The kidneys demonstrate no hydronephrosis, nephrolithiasis. There is mild bilateral perinephric stran ding Small bowel loops are normal in caliber. Rectal catheter. Large bowel relatively nondistended. No secondary signs for appendicitis. Bladder decompressed by Muñiz catheter. Retroverted uterus with heterogeneous appearance. Small volum e free pelvic fluid. No inguinal lymphadenopathy. Right common femoral vein central venous catheter t erminating in the right external iliac vein. Small amount of right inguinal region hematoma. Lhue-vy-gtttsovo thoracolumbar degenerative disc disease. IMPRESSION: Limited evaluation without contrast. Hydropic/ distended gallbladder and cholelithiasis. Recommend HIDA scan to exclude cholecystitis. MR CP can also be obtained to further evaluate. Heterogeneous hypodense lesion in the left hepatic lobe measuring 1.9 cm. Recommend multiphasic MRI a bdomen with and without contrast to characterize. Indeterminate right adrenal nodule measuring 2.4 cm. Recommend MRI abdomen, adrenal mass protocol to characterize. Small amount of free pelvic fluid. Heterogeneous appearance of the uterus which can be further characterized with pelvic ultrasound. Bilateral pulmonary atelectasis/developing airspace consolidation or ground-glass disease which could represent sequela of developing pneumonia, edema, hypoventilation. Tiny bilateral pleural effusions. Mild bilateral perinephric edema. Correlate for urinary tract infection, pyelonephritis. Other findings as described above.
[2024-12-31] MEDS: ALBUTEROL SULF 2.5 MG/0.5ML(0.5%) NEB SOLN NEB PRN (19:17)
[2024-12-31] MEDS: IPRATROPIUM BROM 0.5 MG/2.5ML INH SOL NEB PRN (19:17)
--- NOTE | 2024-12-31 20:49 | DVHSR ---
APPROVED REPORT EXAM: Two-dimensional and M-mode echocardiogram with Doppler and color Doppler. Blood Pressure: 121/64 mmHg INDICATION shock RISK FACTORS Obesity: Height: 5'5, Weight: 160 DIMENSIONS LVDd3.8 (3.8-5.7cm)LA (2D)2.2 (1.9-4.0cm)Aortic Root3.3 (2.0-3.7cm) LVDs2.5 (2.5-4.0cm)LA (MM) (1.9-4.0cm)Aortic Cusp Exc1.5 (1.5-2.0cm) EF (%) 60.0 (55-70%)Rt. Atrium4.5 (1.9-4.0cm)Asc. Aorta3.4 cm IVSd1.1 (0.7-1.1cm)RV (D)3.8 (1.8-2.4cm) PWd0.9 (0.7-1.1cm) Mitral Valve MitralMitral Stenosis E wave0.53m/sMV Mean GR.mmHg A wave0.71m/sMV Peak GR.mmHg E/A ratio0.72D MVAcm2 DECEL [id number] 1/2 Timems Aortic Valve Aortic ValveAortic Stenosis V11.10m/Garo Mean GR.5mmHg V21.29m/Garo Peak GR.7mmHg LVOT Diameter1.9 (1.8-2.4cm)Doppler AVA2.42cm2 Pulmonic Valve V20.89m/s Tricuspid Valve TR Velocity3.06m/s [id number] Other Information Technically limited study due to on vent. Conclusion MODERATELYLY DILATED RV AND RA HYPOKINETIC RV MODERATE DEGREE PULMONARY HYPERTENSION RVSP IS 45 MM OF HG AND IS MODERATELY HIGH RV FAILURE IS SUSPECTED LV EF IS 65 % AND IS NORMAL NORMAL VALVES NO EFFUSION
[2025-01-01] VITALS (104 sets, daily range): BP systolic 86–122; BP diastolic 37–64; PULSE 70–94; RESP 10–23; TEMP 77–100.9; O2SAT 90–100
--- NOTE | 2025-01-01 03:39 | DVH ---
CHEST RADIOGRAPH Indication: respiratory failure Technique: 1 view Comparison: XY CHEST XRAY 1 VIEW on DOS: 12/30/24, XY CHEST PORTABLE on DOS: 12/30/24 FINDINGS: Lines and Tubes: Unchanged endotracheal and enteric tubes. Lungs: Increased bibasilar airspace disease likely representing atelectasis. Pleura: No effusion or pneumothorax. Cardiomediastinal contours: Unchanged. Other: Unchanged. IMPRESSION: 1. Mild worsening of bibasilar airspace disease. No other significant change from the prior exam. St able support devices.
[2025-01-01 05:20] LABS: Hematocrit 31.5 % (36.0-46.0); Hemoglobin 10.5 g/dL (12.2-16.2); Mean Corpuscular Hemoglobin 30.4 pg (28.0-32.0); Mean Corpuscular Volume 91.1 fL (80.0-100.0); Nucleated Red Blood Cells % 0.0 %
[2025-01-01 05:42] LABS: Albumin 3.6 g/dL (3.2-4.8); Alkaline Phosphatase 103 U/L (46-116); Anion Gap 13 (5-15); BUN/Creatinine Ratio 10.0 (10.0-20.0); Carbon Dioxide 22 mmol/L (20-31); Potassium 4.9 mmol/L (3.5-5.1); Sodium 144 mmol/L (136-145); Total Protein 5.9 g/dL (5.7-8.2)
[2025-01-01 05:43] LABS: Alanine Aminotransferase 479 U/L (7-40); Bilirubin, Total 0.3 mg/dL (0.2-1.0); Blood Urea Nitrogen 35 mg/dL (9-23); Calcium 8.5 mg/dL (8.7-10.4); Chloride 109 mmol/L (98-107); Glucose 141 mg/dL (74-106)
[2025-01-01 06:20] LABS: COVID19 ANTIGEN SOFIA FIA NEGATIVE (NEGATIVE)
[2025-01-01 06:26] LABS: Base Excess -7.7 mmol/L (-2.0-3.0)
--- NOTE | 2025-01-01 09:08 | DVHPN2 ---
Subjective Patient intubated and sedated Reviewed: Care Plan, H&P, Labs, Medications, Previous Orders Changes from previous H/P or p: No Changes General: Per HPI Objective Vitals Vital Signs Date Time Temp Pulse Resp B/P (MAP) Pulse Ox O2 Delivery O2 Flow Rate FiO2 01/01/25 08:34 82 22 101/55 (70) 95 35 01/01/25 08:00 Mechanical Ventilator+ 01/01/25 08:00 98.6 209.5 12/30/24 17:15 15 Intake/Output Intake and Output 01/01/25 07:00 Intake Total 2325.25 ml Output Total 210 ml Balance 2115.25 ml IV Total 2325.25 ml Output Urine Total 210 ml General Appearance: moderate distress, Other (Intubated and sedated) HEENT: Atraumatic, PERRLA Lungs: Clear to auscultation, Normal air movement, Other (Mechanical ventilation) Cardiovascular: Normal S1, Normal S2 Abdomen: Normal bowel sounds, Soft, No tenderness, No hepatospenomegaly, No masses Genitourinary: No Apparent Abnormalities Musculoskeletal: Normal sensory function, Normal motor function Neuro: Other (Unable to assess) Psych/Mental Status: Other (Unable to assess) Medications Current Medications Medications Dose Ordered Sig/Kimberly Route Start Time Stop Time Status Last Admin Dose Admin Epinephrine HCl 250 ml @ 7.5 mls/hr Q24H IV 12/30/24 18:00 12/30/24 18:00 7.5 MLS/HR Midazolam HCl 50 ml @ 1 mls/hr Q24H IV 12/30/24 18:15 01/01/25 03:44 9 MLS/HR Fentanyl Citrate 250 ml @ 2.5 mls/hr Q24H IV 12/30/24 18:15 12/31/24 15:49 10 MLS/HR Nitroglycerin 0.4 mg Q5MINP PRN SL 12/30/24 19:15 Morphine Sulfate 2 mg Q30M PRN IV 12/30/24 19:15 Piperacillin Sod/ Tazobactam Sod 100 ml @ 25 mls/hr Q8HR IV 12/30/24 22:00 01/01/25 05:37 25 MLS/HR Diagnostic Test (Pha) 1 strip IQ4HR 12/30/24 20:00 01/01/25 08:05 1 STRIP Insulin Human Regular IQ4HR SC 12/30/24 20:00 01/01/25 00:48 2 UNITS Dextrose 50 ml UD PRN IV 12/30/24 19:15 Ondansetron HCl 4 mg Q4HP PRN IV 12/30/24 19:15 Acetaminophen 650 mg Q6HP PRN PO 12/30/24 19:15 12/31/24 06:45 650 MG Norepinephrine Bitartrate 250 ml @ 3.75 mls/hr Q24H IV 12/30/24 21:00 12/31/24 05:55 26.25 MLS/HR Sodium Chloride 1,000 ml @ 75 mls/hr [id number] IV 12/31/24 11:00 01/01/25 03:45 75 MLS/HR Albuterol 2.5 mg Q4HPRN PRN NEB 12/31/24 11:00 12/31/24 21:57 2.5 MG Ipratropium [place] 0.5 mg Q4HPRN PRN NEB 12/31/24 11:00 12/31/24 21:57 0.5 MG Pantoprazole Sodium 40 mg DAILY IV 01/01/25 10:00 Enoxaparin Sodium 30 mg DAILY SC 01/01/25 10:00 Oseltamivir Phosphate 30 mg DAILY PO 01/01/25 10:00 01/06/25 09:59 Laboratory Results Laboratory Tests 01/01/25 04:40 Chemistry Test 01/01/25 04:40 Albumin 3.6 g/dL (3.2-4.8) Calcium Level 8.5 mg/dL (8.7-10.4) L Total Protein 5.9 g/dL (5.7-8.2) Coagulation Test 12/31/24 13:24 D-Dimer, Quantitative > 35.20 mg/L FEU (0.0-0.49) LFT Test 01/01/25 04:40 Alanine Aminotransferase (ALT) 479 U/L (7-40) H Alkaline Phosphatase 103 U/L (46-116) Aspartate Amino Transferase (AST) 239 U/L (13-40) H Total Bilirubin 0.3 mg/dL (0.2-1.0) Urinalysis Test 12/31/24 08:15 Urine Color Yellow (Yellow) Urine Clarity Ex.turbid (Clear) Urine pH 5.5 (5.0-9.0) Urine Specific [place] 1.016 (1.001-1.035) Urine Protein 1+ (Negative) H Urine Ketones Trace (Negative) Urine Blood 3+ /uL (Negative) H Urine Nitrite Negative (Negative) Urine Bilirubin Negative (Negative) Urine Urobilinogen Normal mg/dL (Negative) Urine Leukocyte Esterase 3+ /uL (Negative) Urine RBC 61 /hpf (0 - 4) Urine WBC Clumps Present /hpf (None Seen) Urine Microscopic WBC 59 /HPF (0-5) H Urine Squamous Epithelial Cells Few /hpf (<5) Urine Amorphous Crystals Few /hpf (None Seen) Urine Bacteria Few /hpf (None Seen) H Urine Glucose 1+ mg/dL (Normal) H Blood Gas Results Test 01/01/25 06:22 Arterial Blood pH 7.255 (7.350-7.450) FiO2 % 35.0 Microbiology Microbiology Date/Time Source Procedure Growth Status 12/30/24 19:54 Sputum Gram Stain - Final Resulted 12/30/24 19:54 Sputum Respiratory Culture - Preliminary Resulted 12/30/24 17:41 Blood Blood Culture - Preliminary NO GROWTH AFTER 24 HOURS OF INCUBATION. Resulted Labs and/or images reviewed: Labs reviewed by me, Image(s) reviewed by me Assessment/Plan Assessment/Plan Impression: -cardiopulmonary arrest -acute hypoxic respiratory failure -septic shock -complicated cystitis -hypoglycemia, questionable underlying diabetes mellitus -shock liver -acute kidney injury, vasomotor nephropathy -Right ventricular failure -Cholelithiasis Plan: Events: Worsening renal function. Positive influenza A/B -Start Tamiflue -continue current ventilator settings -Nephrology consult -Continue IVF -echocardiogram: Results reviewed -continue vasopressor therapy to keep map greater than 65 -continue current antibiotic therapy with Zosyn, stop vancomycin -CT scan of the chest, abdomen, pelvis -cobb cultures -PUD, DVT prophylaxis -Check troponin -Repeat labs, abg, CXR in am Critical care time spent with patient discussing and formulating plan of care: 40 minutes. This does not include time spent performing procedures. This medical document was created using an electronic medical record system with [employer] dictation system. Although this document has been carefully reviewed, there may still be some phonetic and typographical errors. These areas are purely typographical due to imperfections of the software programs, and do not reflect any compromise in the patient's medical care. Plan discussed with: Patient, Other (RN) My Orders Orders - AUGUST BENDER NP Procedure Category Date Status Time Echo 2d Mode Cardiac US 12/31/24 Resulted DOP 10:53 Sodium Chloride 0.9% PHA 12/31/24 In Process 11:00 Albuterol Medneb PHA 12/31/24 In Process (Ventolin Medneb) 11:00 Ipratropium Medneb PHA 12/31/24 In Process (Atrovent Medneb) 11:00 Urine Bacterial NANCIE 12/31/24 In Process Culture 10:59 Pantoprazole PHA 01/01/25 In Process (Protonix) 10:00 Chest Portable XY 01/01/25 Resulted 04:00 Abg W/ Co-Ox RT 01/01/25 Logged 04:00 Chst Ab Pel Wo Con-No CT 12/31/24 Resulted Iv/Oral 10:53 Enoxaparin Sodium PHA 01/01/25 In Process (Lovenox) 10:00 Drug Screen LAB 12/31/24 Logged 13:25 Mrsa Screen NANCIE 12/31/24 In Process 10:15 *Dr[facility] CONS 01/01/25 Transmitted -[place] 08:12 Gallbladder US 01/01/25 Taken 08:17 Troponin-I Hs LAB 01/01/25 Logged 08:17 Troponin-I Hs LAB 01/01/25 Logged 09:17 Troponin-I Hs LAB 01/01/25 Logged 11:17 Comprehensive LAB 01/02/25 Verified Metabolic Panel 05:00 Comprehensive LAB 01/03/25 Verified Metabolic Panel 05:00 Comprehensive LAB 01/04/25 Verified Metabolic Panel 05:00 Complete Blood Count LAB 01/02/25 Verified 05:00 Complete Blood Count LAB 01/03/25 Verified 05:00 Complete Blood Count LAB 01/04/25 Verified 05:00 Oseltamivir 30mg PHA 01/01/25 In Process Capsule (Tamiflu 30mg 10:00 Bilat Lower Dvt US 01/01/25 Logged 08:57 Date of Service: Jan 01, 2025 Billing Provider: AUGUST BENDER NP Common Visit Codes: 36063-LQL/OBS DISCH DAY >30min AUGUST BENDER NP Jan 01, 2025 09:08
--- NOTE | 2025-01-01 09:31 | DVH ---
Technique: Real-time ultrasound imaging of the abdomen was performed with grayscale and color Doppler . Indication: rule out cholecystitis Comparison: CT abdomen from 12/31/2024 Findings: Liver measures 18.6 cm. It is increased in echogenicity and echotexture. There is complex appearing left hepatic lobe septated cystic lesion measuring 2.9 cm.. Portal vein is normal in caliber and demo nstrates normal hepatopetal flow. Gallbladder demonstrates cholelithiasis. There is no pericholecystic fluid. The wall thickness is nor mal. The gallbladder is distended. The common bile duct nonvisualized. The right kidney measures 11.6 cm. There is no hydronephrosis or sonographic evidence of nephrolithia sis. The visualized portion of the pancreas is unremarkable. The visualized portion of the IVC is unremarkable. Impression: Echogenic liver which can be seen with hepatic steatosis, cirrhosis. Hepatomegaly Cholelithiasis and Distended gallbladder. Recommend HIDA scan to exclude cholecystitis. Complex appearing septated cystic lesion in the left hepatic lobe measuring at least 2.9 cm, suboptim ally evaluated. Given the previous CT findings, recommend multiphasic MRI abdomen with and without co ntrast to further evaluate and characterize.
[2025-01-01] MEDS ORDERED: ENOXAPARIN SOD 40 MG/0.4 ML SYRINGE SC SCH (10:00)
[2025-01-01] MEDS: PANTOPRAZOLE 40 MG/10 ML VIAL INJ IV SCH (10:24)
[2025-01-01] MEDS: BUMETANIDE 2.5mg/10ml (0.25 mg/ml) INJ IV ONE (10:24)
[2025-01-01] MEDS: OSELTAMIVIR 30 MG CAP PO SCH (10:25)
[2025-01-01] MEDS: ENOXAPARIN SOD 30 MG/0.3 ML SYRINGE SC SCH (10:25)
--- NOTE | 2025-01-01 10:52 | DVH ---
Bilateral lower extremity venous duplex Clinical History: elevated d dimer, rule out DVT Comparison: None Findings: Duplex Doppler evaluation of the deep venous systems of both lower extremities from the common femora l veins to the popliteal veins including color Doppler and spectral/pulsed waveform analysis was perf ormed. Bilateral DVTs are present involving the common femoral vein, popliteal vein, left superficial femora l vein through popliteal vein and posterior tibial veins IMPRESSION: bilateral DVTs. If clinical concern/symptoms persist or worsen, short-interval follow-up study is suggested. END IMPRESSION:
[2025-01-01] MEDS ORDERED: HEPARIN SODIUM (PORCINE) 5000 UNITS/ML 1ML VIAL IV ONE (12:00)
[2025-01-01 12:58] LABS: Hematocrit 33.5 % (36.0-46.0); Hemoglobin 10.8 g/dL (12.2-16.2); Mean Corpuscular Hemoglobin 29.9 pg (28.0-32.0); Mean Corpuscular Volume 93.1 fL (80.0-100.0); Nucleated Red Blood Cells % 0.0 %
[2025-01-01] MEDS: HEPARIN DRIP/D5W 100UNITS/ML 250 ML IV SCH (13:19)
[2025-01-01] MEDS: HEPARIN SODIUM (PORCINE) 5000 UNITS/ML 1ML VIAL IV ONE (13:19)
[2025-01-01] MEDS: IOHEXOL 350 MG/ML 100ML IJ ONE (14:03)
--- NOTE | 2025-01-01 15:43 | DVH ---
EXAM: CT CT ANGIO CHEST CONTRAST History: rule out PE Comparison Study: XY CHEST PORTABLE on DOS: 01/01/25, CT CHST AB PEL WO CON-NO IV/ORAL on DOS: 12/31/24, XY CHEST XRAY 1 VIEW on DOS: 12/30/24 TECHNIQUE: A digital chemical laboratory chief image was obtained. During the uneventful, intravenous administration of c ontrast material, multislice data acquisition was obtained through the chest. 3-D postprocessing is performed by technologist including MIP imaging Radiation Dose : CTDI vol 22.54 mGy, DLP 691.15 mGy*cm. Findings: Lungs: Bilateral lower lobe atelectasis. The lungs are otherwise clear. Pleura: Unremarkable Heart/Great vessels: No cardiomegaly or pericardial effusion. Pulmonary emboli in the bilateral dista l main pulmonary arteries extending into the bilateral upper and lower lobe segmental and subsegmenta l arteries. No saddle embolism. Enlarged pulmonary trunk. Mild right ventricular enlargement. Possibl e developing right heart strain with contrast reflux into the liver. No aortic aneurysm or dissection . Mediastinum: Unremarkable Soft tissues/Bones: Mild multilevel degenerative changes of the thoracic spine. The partially visualized upper abdomen is within normal limits. Impression: 1. Pulmonary emboli in the bilateral distal main pulmonary arteries extending into the bilateral uppe r and lower lobe segmental and subsegmental arteries. 2. Possible developing right heart strain. Critical Result: Pumonary Emboli Findings discussed with Jessica MINOR at 01/01/2025 03:41 PM, and acknowledged receipt and understanding o f the findings.
[2025-01-01 16:57] LABS: INR 1.15 (0.9-1.15); Prothrombin Time 12.0 sec (9.3-11.8)
[2025-01-01 16:59] LABS: Partial Thromboplastin Time 94.3 SEC (24.5-34.5)
--- NOTE | 2025-01-01 17:26 | DVHNC2 ---
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 (Dmitry Bender NP) Indication: Hypotension, CVP monitoring, Volume resuscitation Room prepared for procedure: Yes Glove Cutter performed hand hygien: Yes Maximal sterile barrier precau: Mask/Eye shield, Sterile gown, Cap, Sterlie gloves Skin Preparation: Chlorhexidine gluconate Skin preparation completely dr: Yes Insertion site: Right Central line catheter type: [id number] dialysis Number of lumens: 3 Central line exchanged over a: Yes Antiseptic ointment applied to: Yes Post Assessment: Chest X-Ray, Proper placement, No Pneumothorax Informed consent obtained: Yes Risks/benefits/alt described: Yes Notes EBL 5ml US CPT: 25663 Date of Service: Jan 01, 2025 Billing Provider: AUGUST BENDER NP Common Visit Codes: PROCEDURE ONLY Procedure Codes: 66966-ITL[place] NON-TUNNEL CV CATH AUGUST BENDER NP Jan 01, 2025 17:26
[2025-01-01] MEDS ORDERED: IBUPROFEN 600 MG TAB PO ONE (17:45)
--- NOTE | 2025-01-01 17:56 | DVHINCON2 ---
Date of service: Jan 01, 2025 Reason for Consultation pedro History of Present Illness 59 years old female with unknown medical history presented with shortness of breath she eventually had a code blue currently intubated and sedated on Levophed getting IV fluids with minimal urine output She has also tested positive for flu Past Medical History As per HPI Past Surgical History As per HPI Allergies: Coded Allergies: NO KNOWN ALLERGIES (Unverified , 12/30/24) Current Medications Current Medications Medications (Trade) Dose Ordered Sig/Kimberly Route PRN Reason Start Time Stop Time Status Last Admin Pantoprazole Sodium (Protonix) 40 mg DAILY IV 01/01/25 10:00 01/01/25 10:24 Enoxaparin Sodium (Lovenox) 40 mg DAILY SC 01/01/25 10:00 12/31/24 12:24 DC Enoxaparin Sodium (Lovenox) 30 mg DAILY SC 01/01/25 10:00 01/01/25 11:53 DC 01/01/25 10:25 Oseltamivir Phosphate (Tamiflu 30MG Capsule) 30 mg DAILY PO 01/01/25 10:00 01/06/25 09:59 01/01/25 10:25 Piperacillin Sod/ Tazobactam Sod 100 ml @ 25 mls/hr Q12H IV 01/01/25 18:00 Heparin Sodium/ Dextrose 250 ml @ 17 mls/hr [id number] IV 01/01/25 12:30 01/01/25 13:19 Review of Systems Unknown H&P Exam Vital Signs/I&O Vital Sign Date Time Temp Pulse Resp B/P (MAP) Pulse Ox O2 Delivery O2 Flow Rate FiO2 01/01/25 16:35 88 18 111/42 (65) 98 40 01/01/25 16:15 100.6 213.1 01/01/25 16:00 Mechanical Ventilator+ 12/30/24 17:15 15 Intake and Output 12/31/24 01/01/25 19:00 07:00 Intake Total 932.00 ml 1497.25 ml Output Total 60 ml 150 ml Balance 872.00 ml 1347.25 ml IV Total 932.00 ml 1497.25 ml Output Urine Total 60 ml 150 ml Physical Exam General-intubated and sedated HEENT-normocephalic, no icterus, no pallor, neck supple Respiratory-fair air entry bilateral, [id number] heard, no murmurs appreciated Abdominal-soft, Musculoskeletal-positive trace pedal edema, no calf tenderness Labs/Diagnostic Data Labs/Diagnostic Data Laboratory Tests Test 01/01/25 16:17 01/01/25 16:02 01/01/25 13:08 01/01/25 12:42 Range/Units Prothrombin Time 12.0 H 9.3-11.8 sec Prothrombin Time INR 1.15 0.9-1.15 Activated Partial Thromboplast Time 94.3 *H 24.5-34.5 SEC Troponin I High Sensitivity 631 *H 605 *H </=34 ng/L POC Glucose 102 116 H 70-106 mg/dl White Blood Count 16.5 H 4.4-10.8 10^3/uL Red Blood Count 3.60 L 4.0-5.20 10^6/uL Hemoglobin 10.8 L 12.2-16.2 g/dL Hematocrit 33.5 L 36.0-46.0 % Mean Corpuscular Volume 93.1 80.0-100.0 fL Mean Corpuscular Hemoglobin 29.9 28.0-32.0 pg Mean Corpuscular Hemoglobin Concent 32.1 32.0-36.0 g/dL Red Cell Distribution Width 15.5 H 11.8-14.3 % Platelet Count 125 L 140-450 10^3/uL Mean Platelet Volume 8.9 6.9-10.8 fL Neutrophils (%) (Auto) 81.3 H 37.0-80.0 % Lymphocytes (%) (Auto) 10.2 10.0-50.0 % Monocytes (%) (Auto) 7.9 0.0-12.0 % Eosinophils (%) (Auto) 0.1 0.0-7.0 % Basophils (%) (Auto) 0.5 0.0-2.0 % Neutrophils # (Auto) 13.4 H 1.6-8.6 10 ^3/uL Lymphocytes # (Auto) 1.7 0.4-5.4 10 ^3/uL Monocytes # (Auto) 1.3 0-1.3 10 ^3/uL Eosinophils # (Auto) 0 0-0.8 10 ^3/uL Basophils # (Auto) 0.1 0-0.2 10 ^3/uL Nucleated Red Blood Cells 0.0 % Test 01/01/25 10:33 01/01/25 07:57 01/01/25 06:22 01/01/25 05:15 Range/Units Troponin I High Sensitivity 557 *H </=34 ng/L POC Glucose 123 H 70-106 mg/dl Blood Gas Specimen Type Arterial Blood Gas Sample Site Left radial Blood Gas Patient Temperature 37.0 Arterial Blood Date Drawn [id number] Arterial Blood pH 7.255 L 7.350-7.450 Arterial Blood Partial Pressure CO2 44.0 32.0-45.0 mmHg Arterial Blood Partial Pressure O2 73.2 L 83.0-108.0 mmHg Arterial Blood HCO3 19.1 L 21.0-28.0 mmol/L Arterial Blood Oxygen Saturation 92.2 L 94.0-98.0 % Arterial Blood Base Excess -7.7 L -2.0-3.0 mmol/L Arterial Blood Oxyhemoglobin 91.6 L 94.0-98.0 % Arterial Blood Carboxyhemoglobin 0.3 L 0.5-1.5 % Arterial Blood Methemoglobin 0.3 0.0-1.5 % Sunday Test Modified Blood Gas Total Hemoglobin 11.20 L 12.0-16.0 g/dL Blood Gas Set Respiration Rate 18.0 Blood Gas Modality Vent - ac FiO2 % 35.0 Blood Gas Tidal Volume 450.0 Blood Gas PEEP or CPAP 5.0 Influenza Type A Antigen Positive Negative Influenza Type B Antigen Positive Negative SARS-CoV-2 Antigen (Rapid) Negative NEGATIVE Test 01/01/25 04:40 01/01/25 03:48 01/01/25 00:35 12/31/24 23:41 Range/Units White Blood Count 15.4 #H 4.4-10.8 10^3/uL Red Blood Count 3.46 L 4.0-5.20 10^6/uL Hemoglobin 10.5 #L 12.2-16.2 g/dL Hematocrit 31.5 #L 36.0-46.0 % Mean Corpuscular Volume 91.1 80.0-100.0 fL Mean Corpuscular Hemoglobin 30.4 28.0-32.0 pg Mean Corpuscular Hemoglobin Concent 33.4 32.0-36.0 g/dL Red Cell Distribution Width 14.9 H 11.8-14.3 % Platelet Count 100 L 140-450 10^3/uL Mean Platelet Volume 8.8 6.9-10.8 fL Neutrophils (%) (Auto) 83.8 H 37.0-80.0 % Lymphocytes (%) (Auto) 8.3 L 10.0-50.0 % Monocytes (%) (Auto) 7.8 0.0-12.0 % Eosinophils (%) (Auto) 0.1 0.0-7.0 % Basophils (%) (Auto) 0.0 0.0-2.0 % Neutrophils # (Auto) 12.9 H 1.6-8.6 10 ^3/uL Lymphocytes # (Auto) 1.3 0.4-5.4 10 ^3/uL Monocytes # (Auto) 1.2 0-1.3 10 ^3/uL Eosinophils # (Auto) 0 0-0.8 10 ^3/uL Basophils # (Auto) 0 0-0.2 10 ^3/uL Nucleated Red Blood Cells 0.0 % Sodium Level 144 136-145 mmol/L Potassium Level 4.9 3.5-5.1 mmol/L Chloride Level 109 H 98-107 mmol/L Carbon Dioxide Level 22 20-31 mmol/L Anion Gap 13 5-15 Blood Urea Nitrogen 35 #H 9-23 mg/dL Creatinine 3.49 #H 0.550-1.02 mg/dL Glomerular Filtration Rate Calc 14 >90 mL/min BUN/Creatinine Ratio 10.0 10.0-20.0 Serum Glucose 141 H 74-106 mg/dL Calcium Level 8.5 L 8.7-10.4 mg/dL Total Bilirubin 0.3 0.2-1.0 mg/dL Aspartate Amino Transferase (AST) 239 H 13-40 U/L Alanine Aminotransferase (ALT) 479 H 7-40 U/L Alkaline Phosphatase 103 46-116 U/L Total Protein 5.9 5.7-8.2 g/dL Albumin 3.6 3.2-4.8 g/dL Random Vancomycin Level 17.3 H 5-10 ug/mL POC Glucose 127 H 140 H 134 H 70-106 mg/dl Test 12/31/24 20:27 12/31/24 17:20 12/31/24 13:24 12/31/24 11:46 Range/Units POC Glucose 155 H 144 H 176 H 70-106 mg/dl D-Dimer, Quantitative > 35.20 H 0.0-0.49 mg/L FEU Test 12/31/24 08:59 12/31/24 08:15 12/31/24 06:19 12/31/24 04:55 Range/Units POC Glucose 176 H 70-106 mg/dl Urine Color Yellow Yellow Urine Clarity Ex.turbid Clear Urine pH 5.5 5.0-9.0 Urine Specific [place] 1.016 1.001-1.035 Urine Protein 1+ H Negative Urine Ketones Trace Negative Urine Blood 3+ H Negative /uL Urine Nitrite Negative Negative Urine Bilirubin Negative Negative Urine Urobilinogen Normal Negative mg/dL Urine Leukocyte Esterase 3+ Negative /uL Urine RBC 61 0 - 4 /hpf Urine WBC Clumps Present None Seen /hpf Urine Microscopic WBC 59 H 0-5 /HPF Urine Squamous Epithelial Cells Few <5 /hpf Urine Amorphous Crystals Few None Seen /hpf Urine Bacteria Few H None Seen /hpf Urine Glucose 1+ H Normal mg/dL Blood Gas Specimen Type Arterial Blood Gas Sample Site Right radial Blood Gas Patient Temperature 37.0 Arterial Blood Date Drawn [id number] Arterial Blood pH 7.229 *L 7.350-7.450 Arterial Blood Partial Pressure CO2 43.0 32.0-45.0 mmHg Arterial Blood Partial Pressure O2 100.7 83.0-108.0 mmHg Arterial Blood HCO3 17.6 L 21.0-28.0 mmol/L Arterial Blood Oxygen Saturation 96.8 94.0-98.0 % Arterial Blood Base Excess -9.6 L -2.0-3.0 mmol/L Arterial Blood Oxyhemoglobin 95.5 94.0-98.0 % Arterial Blood Carboxyhemoglobin 0.6 0.5-1.5 % Arterial Blood Methemoglobin 0.7 0.0-1.5 % Sunday Test Yes Blood Gas Total Hemoglobin 13.70 12.0-16.0 g/dL Blood Gas Set Respiration Rate 18.0 Blood Gas Modality Vent - ac FiO2 % 50.0 Blood Gas Tidal Volume 500.0 Blood Gas PEEP or CPAP 5.0 Blood Gas Critical Value Read Back Yes Blood Gas Notified Whom Teri ty np Blood Gas Notified Time [id number] Blood Gas Notified By White Blood Count 20.6 H 4.4-10.8 10^3/uL Red Blood Count 4.28 4.0-5.20 10^6/uL Hemoglobin 13.1 12.2-16.2 g/dL Hematocrit 39.3 36.0-46.0 % Mean Corpuscular Volume 91.8 80.0-100.0 fL Mean Corpuscular Hemoglobin 30.6 28.0-32.0 pg Mean Corpuscular Hemoglobin Concent 33.3 32.0-36.0 g/dL Red Cell Distribution Width 14.3 11.8-14.3 % Platelet Count 192 140-450 10^3/uL Mean Platelet Volume 8.0 6.9-10.8 fL Neutrophils (%) (Auto) 92.2 H 37.0-80.0 % Lymphocytes (%) (Auto) 4.3 L 10.0-50.0 % Monocytes (%) (Auto) 3.4 0.0-12.0 % Eosinophils (%) (Auto) 0.0 0.0-7.0 % Basophils (%) (Auto) 0.1 0.0-2.0 % Neutrophils # (Auto) 19.0 H 1.6-8.6 10 ^3/uL Lymphocytes # (Auto) 0.9 0.4-5.4 10 ^3/uL Monocytes # (Auto) 0.7 0-1.3 10 ^3/uL Eosinophils # (Auto) 0 0-0.8 10 ^3/uL Basophils # (Auto) 0 0-0.2 10 ^3/uL Nucleated Red Blood Cells 0.1 % Erythrocyte Sedimentation Rate 5 0-20 mm/hr Sodium Level 142 136-145 mmol/L Potassium Level 4.7 3.5-5.1 mmol/L Chloride Level 107 98-107 mmol/L Carbon Dioxide Level 22 20-31 mmol/L Anion Gap 13 5-15 Blood Urea Nitrogen 23 9-23 mg/dL Creatinine 2.11 #H 0.550-1.02 mg/dL Glomerular Filtration Rate Calc 26 >90 mL/min BUN/Creatinine Ratio 10.9 10.0-20.0 Serum Glucose 212 H 74-106 mg/dL Hemoglobin A1c 5.6 <5.7 % A1C Calcium Level 9.3 8.7-10.4 mg/dL Total Bilirubin 0.4 0.2-1.0 mg/dL Aspartate Amino Transferase (AST) 1068 H 13-40 U/L Alanine Aminotransferase (ALT) 783 H 7-40 U/L Alkaline Phosphatase 151 H 46-116 U/L C-Reactive Protein High Sensitivity 2.72 H <1.0 mg/dL Total Protein 6.9 5.7-8.2 g/dL Albumin 4.2 3.2-4.8 g/dL Random Vancomycin Level 38.3 H 5-10 ug/mL Test 12/31/24 03:49 12/30/24 23:25 12/30/24 20:42 12/30/24 19:47 Range/Units POC Glucose 205 H 239 H 315 H 70-106 mg/dl Lactic Acid Level 8.5 *H 0.4-2.0 mmol/L Test 12/30/24 19:30 12/30/24 17:41 Range/Units Blood Gas Specimen Type Arterial Blood Gas Sample Site Right radial Blood Gas Patient Temperature 37.0 Arterial Blood Date Drawn [id number] Arterial Blood pH 7.228 *L 7.350-7.450 Arterial Blood Partial Pressure CO2 39.7 32.0-45.0 mmHg Arterial Blood Partial Pressure O2 163.3 H 83.0-108.0 mmHg Arterial Blood HCO3 16.2 L 21.0-28.0 mmol/L Arterial Blood Oxygen Saturation 98.6 H 94.0-98.0 % Arterial Blood Base Excess -10.7 L -2.0-3.0 mmol/L Arterial Blood Oxyhemoglobin 97.5 94.0-98.0 % Arterial Blood Carboxyhemoglobin 0.5 0.5-1.5 % Arterial Blood Methemoglobin 0.6 0.0-1.5 % Sunday Test Modified Blood Gas Total Hemoglobin 12.60 12.0-16.0 g/dL Blood Gas Set Respiration Rate 18.0 Blood Gas Modality Vent - ac FiO2 % 100.0 Blood Gas Tidal Volume 450.0 Blood Gas PEEP or CPAP 5.0 Blood Gas Critical Value Read Back Yes Blood Gas Notified Whom Md stephani billingsley Blood Gas Notified Time [id number] Blood Gas Notified By Rt halina cruz White Blood Count 17.0 H 4.4-10.8 10^3/uL Red Blood Count 4.41 4.0-5.20 10^6/uL Hemoglobin 13.1 12.2-16.2 g/dL Hematocrit 42.0 36.0-46.0 % Mean Corpuscular Volume 95.3 80.0-100.0 fL Mean Corpuscular Hemoglobin 29.8 28.0-32.0 pg Mean Corpuscular Hemoglobin Concent 31.3 L 32.0-36.0 g/dL Red Cell Distribution Width 15.7 H 11.8-14.3 % Platelet Count 167 140-450 10^3/uL Mean Platelet Volume 8.4 6.9-10.8 fL Neutrophils (%) (Auto) 48.5 37.0-80.0 % Lymphocytes (%) (Auto) 41.8 10.0-50.0 % Monocytes (%) (Auto) 9.0 0.0-12.0 % Eosinophils (%) (Auto) 0.2 0.0-7.0 % Basophils (%) (Auto) 0.5 0.0-2.0 % Neutrophils # (Auto) 8.2 1.6-8.6 10 ^3/uL Lymphocytes # (Auto) 7.1 H 0.4-5.4 10 ^3/uL Monocytes # (Auto) 1.5 H 0-1.3 10 ^3/uL Eosinophils # (Auto) 0 0-0.8 10 ^3/uL Basophils # (Auto) 0.1 0-0.2 10 ^3/uL Nucleated Red Blood Cells 0.2 % Prothrombin Time 11.8 9.3-11.8 sec Prothrombin Time INR 1.13 0.9-1.15 Activated Partial Thromboplast Time 30.5 24.5-34.5 SEC Sodium Level 142 136-145 mmol/L Potassium Level 3.1 L 3.5-5.1 mmol/L Chloride Level 100 98-107 mmol/L Carbon Dioxide Level 19 L 20-31 mmol/L Anion Gap 23 H 5-15 Blood Urea Nitrogen 20 9-23 mg/dL Creatinine 1.47 H 0.550-1.02 mg/dL Glomerular Filtration Rate Calc 40 >90 mL/min BUN/Creatinine Ratio 13.6 10.0-20.0 Serum Glucose 438 *H 74-106 mg/dL Lactic Acid Level 13.1 *H 0.4-2.0 mmol/L Calcium Level 10.8 H 8.7-10.4 mg/dL Total Bilirubin 0.6 0.2-1.0 mg/dL Aspartate Amino Transferase (AST) 610 H 13-40 U/L Alanine Aminotransferase (ALT) 521 H 7-40 U/L Alkaline Phosphatase 154 H 46-116 U/L Total Protein 6.4 5.7-8.2 g/dL Albumin 4.1 3.2-4.8 g/dL Microbiology Date/Time Source Procedure Growth Status 12/31/24 10:15 Nose MRSA Screen - Final Complete Assessment Acute kidney injury likely ATN in the setting of shock Code blue status post resuscitation Ventilator-dependent hypoxic respiratory failure pulmonary embolism DVT Recommendations Continue IV fluids Bumex IV one time dose as minimal urine output High-risk for Worsening Acute kidney injury CT angiogram today noted We will follow renal function closely Evaluate [employer] needs daily Anticoagulation Plan discussed with: Other ANN PHILLIPS MD Jan 01, 2025 17:56
[2025-01-01] MEDS: PIPERACILLIN-TAZOB 3.375GM 100 ML IV SCH (18:09)
--- NOTE | 2025-01-01 18:10 | DVH ---
CHEST RADIOGRAPH Indication: central line placement Technique: XY CHEST PORTABLE COMPARISON: 01/01/2025 FINDINGS: Right IJ catheter tip projects over the SVC. Endotracheal tube tip projects 2.2 cm above the mikhail. Nasogastric tube projects towards stomach. The cardiac silhouette is enlarged. The lungs demonstrate bilateral patchy airspace opacities, increa sed from previous examination. The pulmonary vasculature is prominent. Small bilateral pleural effusi ons, increased from prior. There is no pneumothorax. IMPRESSION: As above
[2025-01-01] MEDS: IBUPROFEN 100MG/5ML ORAL SUSP 100 MG/5 ML UD GT ONE (18:15)
--- NOTE | 2025-01-01 18:27 | CONS ---
Pharmacy Clinical Information: HEPARIN DRIP PER PHARMACY SPOKE TO IVÁN BANSAL REGARDING TO NEW HEPARIN DRIP ORDER aPTT ORDERED AT 1151 ON 01/01/2025 BUT NO RESULT AVAILABLE BOLUS:5000 UNITS IVP X1 PER HOSPITALIST INITIAL HEPARIN RATE: 1700 UNITS/HR ADMINISTERED BY IVÁN BANSAL ON 01/01/2025 AT 1319 IVÁN BANSAL READ BACK INITIAL RATE 1700 UNITS/HR PER IVÁN BANSAL 1600 ON 01/01/2025: HEPARIN DRIP WAS STOPPED FOR NEW IV LINE INSERTION 1617 ON 01/01/2025: aPTT = 94.3 1816 01/01/2025: RESUMED HEPARIN DRIP SAME RATE 1700 UNITS/HR NEXT aPTT: 01/02/2025 AT 0000 TuPERI Jan 01, 2025 18:27
[2025-01-02] VITALS (98 sets, daily range): BP systolic 86–143; BP diastolic 37–60; PULSE 55–81; RESP 13–21; TEMP 97.5–98.5; O2SAT 88–100
[2025-01-02 01:06] LABS: INR 1.13 (0.9-1.15); Partial Thromboplastin Time 51.7 SEC (24.5-34.5); Prothrombin Time 11.8 sec (9.3-11.8)
--- NOTE | 2025-01-02 06:26 | DVH ---
CHEST RADIOGRAPH Indication: pna Technique: Single frontal view of the chest was obtained Comparison: XY CHEST PORTABLE on DOS: 01/01/25 FINDINGS: Lines and Tubes: The endotracheal tube terminates 2.7 cm above the mikhail. Right central venous edwina ter terminates in the superior vena cava. The enteric tube courses below the left hemidiaphragm and t he tip extends outside the field of view. Lungs: Pulmonary vascular congestion similar to prior study. Pleura: No effusion. No pneumothorax. Cardiomediastinal contours: Unremarkable Bones: No acute osseous abnormality. IMPRESSION: 1. Stable position of the support lines and tubes. 2. Pulmonary vascular congestion. No significant interval change.
[2025-01-02 07:52] LABS: Albumin 3.6 g/dL (3.2-4.8); Alkaline Phosphatase 97 U/L (46-116); Anion Gap 8 (5-15); BUN/Creatinine Ratio 11.1 (10.0-20.0); Bilirubin, Total 0.4 mg/dL (0.2-1.0); Carbon Dioxide 22 mmol/L (20-31); Potassium 4.8 mmol/L (3.5-5.1); Sodium 144 mmol/L (136-145); Total Protein 5.8 g/dL (5.7-8.2)
[2025-01-02 07:54] LABS: Alanine Aminotransferase 338 U/L (7-40); Blood Urea Nitrogen 42 mg/dL (9-23); Calcium 8.5 mg/dL (8.7-10.4); Chloride 114 mmol/L (98-107); Glucose 139 mg/dL (74-106)
[2025-01-02 08:04] LABS: Base Excess -8.8 mmol/L (-2.0-3.0)
--- NOTE | 2025-01-02 08:07 | ECG ---
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
[2025-01-02 08:15] LABS: Hematocrit 29.9 % (36.0-46.0); Hemoglobin 9.9 g/dL (12.2-16.2); Mean Corpuscular Hemoglobin 30.4 pg (28.0-32.0); Mean Corpuscular Volume 91.8 fL (80.0-100.0); Nucleated Red Blood Cells % 0.0 %
[2025-01-02 08:21] LABS: INR 1.12 (0.9-1.15); Prothrombin Time 11.7 sec (9.3-11.8)
[2025-01-02 08:32] LABS: Partial Thromboplastin Time > 139.0 SEC (24.5-34.5)
--- NOTE | 2025-01-02 08:44 | DVHPN2 ---
Subjective Patient intubated and sedated Reviewed: Care Plan, H&P, Labs, Medications, Previous Orders Changes from previous H/P or p: No Changes General: Per HPI Objective Vitals Vital Signs Date Time Temp Pulse Resp B/P (MAP) Pulse Ox O2 Delivery O2 Flow Rate FiO2 01/02/25 08:16 75 20 114/53 (73) 98 40 01/02/25 08:00 Mechanical Ventilator+ 01/02/25 07:30 97.7 97.7 Intake/Output Intake and Output 01/02/25 06:59 Intake Total 2497.25 ml Output Total 595 ml Balance 1902.25 ml Intake Oral 0 ml IV Total 2497.25 ml Output Urine Total 595 ml General Appearance: moderate distress, Other (Intubated and sedated) HEENT: Atraumatic, PERRLA Lungs: Clear to auscultation, Normal air movement, Other (Mechanical ventilation) Cardiovascular: Normal S1, Normal S2 Abdomen: Normal bowel sounds, Soft, No tenderness, No hepatospenomegaly, No masses Genitourinary: No Apparent Abnormalities Musculoskeletal: Normal sensory function, Normal motor function Neuro: Other (Unable to assess) Psych/Mental Status: Other (Unable to assess) Medications Current Medications Medications Dose Ordered Sig/Kimberly Route Start Time Stop Time Status Last Admin Dose Admin Epinephrine HCl 250 ml @ 7.5 mls/hr Q24H IV 12/30/24 18:00 12/30/24 18:00 7.5 MLS/HR Midazolam HCl 50 ml @ 1 mls/hr Q24H IV 12/30/24 18:15 01/02/25 05:35 9 MLS/HR Fentanyl Citrate 250 ml @ 2.5 mls/hr Q24H IV 12/30/24 18:15 01/02/25 02:28 17.5 MLS/HR Nitroglycerin 0.4 mg Q5MINP PRN SL 12/30/24 19:15 Morphine Sulfate 2 mg Q30M PRN IV 12/30/24 19:15 Diagnostic Test (Pha) 1 strip IQ4HR 12/30/24 20:00 01/02/25 07:46 1 STRIP Insulin Human Regular IQ4HR SC 12/30/24 20:00 01/02/25 04:26 2 UNITS Dextrose 50 ml UD PRN IV 12/30/24 19:15 Ondansetron HCl 4 mg Q4HP PRN IV 12/30/24 19:15 Acetaminophen 650 mg Q6HP PRN PO 12/30/24 19:15 01/01/25 16:06 650 MG Norepinephrine Bitartrate 250 ml @ 3.75 mls/hr Q24H IV 12/30/24 21:00 01/02/25 00:42 11.25 MLS/HR Sodium Chloride 1,000 ml @ 75 mls/hr [id number] IV 12/31/24 11:00 01/02/25 04:25 75 MLS/HR Albuterol 2.5 mg Q4HPRN PRN NEB 12/31/24 11:00 12/31/24 21:57 2.5 MG Ipratropium [place] 0.5 mg Q4HPRN PRN NEB 12/31/24 11:00 12/31/24 21:57 0.5 MG Pantoprazole Sodium 40 mg DAILY IV 01/01/25 10:00 01/01/25 10:24 40 MG Oseltamivir Phosphate 30 mg DAILY PO 01/01/25 10:00 01/06/25 09:59 01/01/25 10:25 30 MG Piperacillin Sod/ Tazobactam Sod 100 ml @ 25 mls/hr Q12H IV 01/01/25 18:00 01/02/25 05:32 25 MLS/HR Heparin Sodium/ Dextrose 250 ml @ 17 mls/hr [id number] IV 01/01/25 12:30 01/02/25 03:28 17 MLS/HR Enteral Nutritional Formula 1,000 ml 30ML/HR GT 01/02/25 08:00 Laboratory Results Laboratory Tests 01/02/25 06:50 Chemistry Test 01/02/25 06:50 Albumin 3.6 g/dL (3.2-4.8) Calcium Level 8.5 mg/dL (8.7-10.4) L Total Protein 5.8 g/dL (5.7-8.2) Coagulation Test 01/01/25 16:17 01/02/25 00:41 01/02/25 06:50 Prothrombin Time 12.0 sec (9.3-11.8) H 11.8 sec (9.3-11.8) 11.7 sec (9.3-11.8) Prothrombin Time INR 1.15 (0.9-1.15) 1.13 (0.9-1.15) 1.12 (0.9-1.15) Activated Partial Thromboplast Time 94.3 SEC (24.5-34.5) *H 51.7 SEC (24.5-34.5) H > 139.0 SEC (24.5-34.5) *H LFT Test 01/02/25 06:50 Alanine Aminotransferase (ALT) 338 U/L (7-40) H Alkaline Phosphatase 97 U/L (46-116) Aspartate Amino Transferase (AST) 89 U/L (13-40) H Total Bilirubin 0.4 mg/dL (0.2-1.0) Urinalysis Test 12/31/24 08:15 Urine Color Yellow (Yellow) Urine Clarity Ex.turbid (Clear) Urine pH 5.5 (5.0-9.0) Urine Specific [employer] 1.016 (1.001-1.035) Urine Protein 1+ (Negative) H Urine Ketones Trace (Negative) Urine Blood 3+ /uL (Negative) H Urine Nitrite Negative (Negative) Urine Bilirubin Negative (Negative) Urine Urobilinogen Normal mg/dL (Negative) Urine Leukocyte Esterase 3+ /uL (Negative) Urine RBC 61 /hpf (0 - 4) Urine WBC Clumps Present /hpf (None Seen) Urine Microscopic WBC 59 /HPF (0-5) H Urine Squamous Epithelial Cells Few /hpf (<5) Urine Amorphous Crystals Few /hpf (None Seen) Urine Bacteria Few /hpf (None Seen) H Urine Glucose 1+ mg/dL (Normal) H Blood Gas Results Test 01/02/25 07:52 Arterial Blood pH 7.232 (7.350-7.450) FiO2 % 30.0 Microbiology Microbiology Date/Time Source Procedure Growth Status 12/31/24 10:15 Nose MRSA Screen - Final Complete 12/31/24 08:15 Voided Urine Urine Culture - Preliminary Resulted 12/30/24 19:54 Sputum Gram Stain - Final Resulted 12/30/24 19:54 Sputum Respiratory Culture - Preliminary Resulted 12/30/24 17:41 Blood Blood Culture - Preliminary NO GROWTH AFTER 48 HOURS OF INCUBATION. Resulted Labs and/or images reviewed: Labs reviewed by me, Image(s) reviewed by me Assessment/Plan Assessment/Plan Impression: -cardiopulmonary arrest -acute hypoxic respiratory failure -septic shock -complicated cystitis -hypoglycemia, questionable underlying diabetes mellitus -shock liver -acute kidney injury, vasomotor nephropathy -Cholelithiasis -bilateral lower extremity DVT -cor pulmonale with bilateral pulmonary emboli Plan: Events: Patient positive for bilateral lower extremity DVT. CT angiogram positive for bilateral main pulmonary artery PE. Heparin drip started yesterday. Discussed case with interventional radiologist yesterday. Also discussed plan of care with the patient's son. Plans for pulmonary embolus thrombectomy today. -continue anticoagulation with heparin -Nephrology consult -start tube feeding -continue vasopressor therapy to keep map greater than 65 -continue Zosyn -CT scan of the chest, abdomen, pelvis -increase respiratory rate to 20, continue tidal volume of 450, peep of five, FiO2 40%. -repeat labs, chest x-ray, ABG in a.m. Critical care time spent with patient discussing and formulating plan of care: 40 minutes. This does not include time spent performing procedures. This medical document was created using an electronic medical record system with [employer] dictation system. Although this document has been carefully reviewed, there may still be some phonetic and typographical errors. These areas are purely typographical due to imperfections of the software programs, and do not reflect any compromise in the patient's medical care. Plan discussed with: Patient, Other (RN) My Orders Orders - AUGUST BENDER FRENCH BINDER Procedure Category Date Status Time Bilat Lower Dvt US 01/01/25 Resulted 08:57 Chest Portable XY 01/02/25 Resulted 05:00 Chest Portable XY 01/03/25 Logged 05:00 Chest Portable XY 01/04/25 Logged 05:00 Abg W/ Co-Ox RT 01/02/25 Logged 05:00 Abg W/ Co-Ox RT 01/03/25 Logged 05:00 Abg W/ Co-Ox RT 01/04/25 Logged 05:00 Platelet Monitoring BEBA 01/01/25 In Process 11:51 Vte Protocol Initiated BEBA 01/01/25 In Process 11:51 Heparin Per BEBA 01/01/25 In Process Standardized Proce 11:51 Discontinue All Im BEBA 01/01/25 In Process Injections 11:51 Heparin Drip/D5w PHA 01/01/25 In Process 100units/Ml 12:30 * Radiologist Consult CONS 01/01/25 Transmitted 11:[address] 01/01/25 Resulted Contrast 11:58 * Radiologist Consult CONS 01/01/25 Transmitted 15:55 Chest Portable XY 01/01/25 Resulted 17:18 Heparin Per Pharmacy BEBA 01/02/25 In Process Protocol 01:24 Nutritional PHA 01/02/25 In Process Supplements (Nepro 08:00 Ventilator Orders RT 01/02/25 Transmitted 08:04 Ventilator Orders RT 01/02/25 Transmitted 08:02 Date of Service: Jan 02, 2025 Billing Provider: AUGUST BENDER NP Common Visit Codes: 09201-[id number] CARE 30-74 MIN AUGUST BENDER NP Jan 02, 2025 08:44
[2025-01-02] MEDS: HEPARIN DRIP/D5W 100UNITS/ML 250 ML IV SCH ×2 (09:30→17:45)
[2025-01-02] MEDS: HEPARIN IN NS 1000Units/500mL 1,500 ML ONE (12:04)
[2025-01-02] MEDS: IODIXANOL 320MG/ML 100ML BTL IV ONE (12:04)
[2025-01-02] MEDS: OPTISON 3ml Vial for INJ IV ONE (12:30)
[2025-01-02] MEDS: LIDOCAINE 2%HCL (LOCAL ANESTH.) INJ 20ML MDV ONE (12:53)
[2025-01-02] MEDS: HEPARIN SODIUM (PORCINE) 5000 UNITS/ML 1ML VIAL ONE (13:25)
[2025-01-02 16:42] LABS: INR 1.14 (0.9-1.15); Prothrombin Time 11.9 sec (9.3-11.8)
[2025-01-02 16:43] LABS: Partial Thromboplastin Time 109.1 SEC (24.5-34.5)
--- NOTE | 2025-01-02 16:50 | DVHPN2 ---
Progress Note Date Seen: Jan 02, 2025 Medical Necessity Reason Pt with a Central, PICC or Fol: Yes The following are medically ne: Central Line, Smith Catheter Reason for smith catheter: Strict I&O Subjective Review of Systems: Deferred Objective vital signs Vital Sign Date Time Temp Pulse Resp B/P (MAP) Pulse Ox O2 Delivery O2 Flow Rate FiO2 01/02/25 16:12 60 20 106/43 (64) 97 35 01/02/25 16:00 Mechanical Ventilator+ 01/02/25 07:30 97.7 97.7 Total Intake and Output 01/01/25 01/01/25 01/02/25 15:00 23:00 07:00 Intake Total 773.75 ml 855.25 ml 764.25 ml Output Total 320 ml 275 ml Balance 773.75 ml 535.25 ml 489.25 ml medications Current Medications Medications Dose Ordered Sig/Kimberly Route Start Time Stop Time Status Last Admin Dose Admin Epinephrine HCl 250 ml @ 7.5 mls/hr Q24H IV 12/30/24 18:00 12/30/24 18:00 7.5 MLS/HR Midazolam HCl 50 ml @ 1 mls/hr Q24H IV 12/30/24 18:15 01/02/25 10:00 10 MLS/HR Fentanyl Citrate 250 ml @ 2.5 mls/hr Q24H IV 12/30/24 18:15 01/02/25 02:28 17.5 MLS/HR Nitroglycerin 0.4 mg Q5MINP PRN SL 12/30/24 19:15 Morphine Sulfate 2 mg Q30M PRN IV 12/30/24 19:15 Diagnostic Test (Pha) 1 strip IQ4HR 12/30/24 20:00 01/02/25 16:22 1 STRIP Insulin Human Regular IQ4HR SC 12/30/24 20:00 01/02/25 04:26 2 UNITS Dextrose 50 ml UD PRN IV 12/30/24 19:15 Ondansetron HCl 4 mg Q4HP PRN IV 12/30/24 19:15 Acetaminophen 650 mg Q6HP PRN PO 12/30/24 19:15 01/01/25 16:06 650 MG Norepinephrine Bitartrate 250 ml @ 3.75 mls/hr Q24H IV 12/30/24 21:00 01/02/25 00:42 11.25 MLS/HR Sodium Chloride 1,000 ml @ 75 mls/hr [id number] IV 12/31/24 11:00 01/02/25 04:25 75 MLS/HR Albuterol 2.5 mg Q4HPRN PRN NEB 12/31/24 11:00 12/31/24 21:57 2.5 MG Ipratropium [place] 0.5 mg Q4HPRN PRN NEB 12/31/24 11:00 12/31/24 21:57 0.5 MG Pantoprazole Sodium 40 mg DAILY IV 01/01/25 10:00 01/02/25 09:59 40 MG Oseltamivir Phosphate 30 mg DAILY PO 01/01/25 10:00 01/06/25 09:59 01/02/25 09:59 30 MG Piperacillin Sod/ Tazobactam Sod 100 ml @ 25 mls/hr Q12H IV 01/01/25 18:00 01/02/25 05:32 25 MLS/HR Enteral Nutritional Formula 1,000 ml 30ML/HR GT 01/02/25 08:00 Heparin Sodium/ Dextrose 250 ml @ 14 mls/hr [id number] IV 01/02/25 09:30 Examination: GENERAL:Abnormal, LUNGS:Abnormal, CVS:Abnormal laboratory and microbiology Laboratory Tests 01/02/25 06:50 Test 01/02/25 06:50 Range/Units Serum Glucose 139 H 74-106 mg/dL Microbiology Date/Time Source Procedure Growth Status 12/31/24 10:15 Nose MRSA Screen - Final Complete 12/31/24 08:15 Voided Urine Urine Culture - Final Complete 12/30/24 19:54 Sputum Gram Stain - Final Complete 12/30/24 19:54 Sputum Respiratory Culture - Final Complete 12/30/24 17:41 Blood Blood Culture - Preliminary NO GROWTH AFTER 48 HOURS OF INCUBATION. Resulted Problem List/Assessment/Plan Problem List/Assessment/Plan Acute kidney injury likely ATN in the setting of shock Code blue status post resuscitation Ventilator-dependent hypoxic respiratory failure RV failure, pulm HTN pulmonary embolism DVT Continue IV fluids, diuretics PRN High-risk for Worsening Acute kidney injury went for IR removal of pulmonary clot We will follow renal function closely Evaluate SAP BW ARCHITECT needs daily Anticoagulation critically ill, guarded prognosis Plan discussed with: Other Dietary Evaluation Review Comments: 1) Consider TF Nepro Carbsteady @ 40ml/hr along with Pro-stat 1 pk BID. 2) TPN if NPO >7 days 3) Monitor NPO status, lab values, wt trend, I/O Expected Outcomes/Goals: To meet >75% estimated needs Lab values to improve Fu 2-3 days Critical Care Time (mins): 33 PAIGE URIBE MD Jan 02, 2025 16:50
--- NOTE | 2025-01-02 16:53 | CONS ---
Pharmacy Clinical Information: HEPARIN DRIP CURRENTLY PAUSED PER APTT = 109.1 AFTER 1 HOUR, RESTART DRIP AT RATE 1100 UNITS/HR NEXT APTT DRAW SCHEDULED FOR 01/03 @0000 PER RX PROTOCOL VINCE POLLOCK PHARMACIST Jan 02, 2025 16:53
--- NOTE | 2025-01-02 17:34 | DVH ---
PROCEDURE: Pulmonary angiography and interventions Procedural Personnel Attending physician(s): Tian Bardales Fellow physician(s): None Resident physician(s): None Advanced practice provider(s): None Pre-procedure diagnosis: Intermediate high risk pulmonary embolus Post-procedure diagnosis: Same Indication: Pulmonary embolism Additional clinical history: None Complications: No immediate complications. IMPRESSION: Angiography of the bilateral main pulmonary arteries demonstrates wide patency at case end following large bore aspiration thrombectomy (to the level of the main and lobar pulmonary arteries. Plan: Continue therapeutic anticoagulation. Right lower extremity straight x6 hours. Suture mediated closur e device to be removed at 24 hours post procedure. PROCEDURE SUMMARY: - Venous access with ultrasound guidance - Bilateral main pulmonary angiography - Superselective pulmonary angiography: Not performed - Pulmonary arterial interventions as described below - Additional procedure(s): None PROCEDURE DETAILS: Pre-procedure Consent: Informed consent for the procedure including risks, benefits and alternatives was obtained a nd time-out was performed prior to the procedure. Preparation: The site was prepared and draped using maximal sterile barrier technique including cutan eous antisepsis. Anesthesia/sedation Level of anesthesia/sedation: Moderate sedation (conscious sedation) Anesthesia/sedation administered by: Independent trained observer under attending supervision with co ntinuous monitoring of the patient s level of consciousness and physiologic status Total intra-service sedation time (minutes): 90 Access Local anesthesia was administered. The vessel was sonographically evaluated and determined to be bean dumper nically narrowed or diminutive. Suggestion of arterial flow within the femoral vein (possibly related to prior central venous catheter placement). Real time ultrasound was used to visualize needle entry into the vessel and a permanent image was stored. A 24 [place] sheath was placed. Vein accessed: Right common femoral vein Access technique: Micropuncture set with 21 gauge needle Pulmonary angiography and interventions The pulmonary arterial system was catheterized using 6 [place] angled pigtail catheter, Glidewire Adva ntage, Amplatz wire. Indication for angiography: Diagnostic angiography - There was no prior catheter-based angiographic s tudy available and a full diagnostic study was performed. The decision to intervene was based on the diagnostic study. Vessel catheterized: Right common femoral vein Findings: Markedly slowed flow into the IVC, suggesting right heart dysfunction. Vessel catheterized: Left main pulmonary artery Findings:Wide patency of the pulmonary arteries following large bore aspiration thrombectomy Selective vessel catheterized: Left lower lobe pulmonary artery Findings:Wide patency of the left lower lobe pulmonary artery at case end Thrombectomy Mechanical thrombectomy location: left lower lobar and main pulmonary arteries Mechanical thrombectomy device: [id number] and [id number] catheters Mechanical thrombectomy type: Aspiration Mechanical thrombectomy location: right interlobar and main pulmonary arteries Mechanical thrombectomy device: [id number] catheter Mechanical thrombectomy type: Aspiration Pressure measurements Pressure measurements were obtained via end-hole catheter. Location of pressure measurement: Main pulmonary artery - Systolic pressure (mmHg): 49 (pre); 35 (post) - Diastolic pressure (mmHg): 23 (pre); 31 (post) - Mean pressure (mmHg): 32 (pre); 28 (post) Closure The sheath was removed and hemostasis was achieved. Venous closure technique: Other-FlowStasis suture mediated device and manual compression Contrast Contrast agent: Visipaque 320 Contrast volume (mL): 50 Radiation Dose Fluoroscopy time (mm:ss): 22:43 Reference air kerma (mGy): 263 Kerma area product (Gy-cm2): 44.60 Additional Details Additional description of procedure: None Registry event: None/3/g Device used: None Equipment details: None Unique Device Identifiers: Not available Specimens removed: None Estimated blood loss (mL): 11-50 Standardized report: [email or web address] Attestation Signer name: Tian Bardales I attest that I was present for the entire procedure. I reviewed the stored images and agree with the report as written.
[2025-01-02] MEDS: Nepro With Carb Steady 1 Liter Bottle GT SCH (21:50)
[2025-01-03] VITALS (110 sets, daily range): BP systolic 87–144; BP diastolic 27–81; PULSE 54–92; RESP 17–26; TEMP 97.7–98.9; O2SAT 84–100
[2025-01-03 00:47] LABS: INR 1.11 (0.9-1.15); Prothrombin Time 11.6 sec (9.3-11.8)
[2025-01-03 00:49] LABS: Partial Thromboplastin Time 89.3 SEC (24.5-34.5)
[2025-01-03] MEDS: HEPARIN DRIP/D5W 100UNITS/ML 250 ML IV SCH ×3 (01:00→21:30)
--- NOTE | 2025-01-03 05:56 | DVH ---
CHEST RADIOGRAPH Indication: pna Technique: Single frontal view of the chest was obtained COMPARISON: XY CHEST PORTABLE on DOS: 01/02/25, XY CHEST PORTABLE on DOS: 01/01/25, CT CT ANGIO CHEST CON TRAST on DOS: 01/01/25, XY CHEST PORTABLE on DOS: 01/01/25, CT CHST AB PEL WO CON-NO IV/ORAL on DOS: FINDINGS: Lines and Tubes: Endotracheal tube, enteric catheter and right central venous catheter in satisfactor y position. Lungs: Clear Pleura: No effusion. No pneumothorax. Cardiomediastinal contours: Unremarkable Bones: Unremarkable IMPRESSION: Lines and tubes in satisfactory position
[2025-01-03 06:18] LABS: Hemoglobin 7.9 g/dL (12.2-16.2); Nucleated Red Blood Cells % 0.1 %
[2025-01-03 06:19] LABS: Hematocrit 23.3 % (36.0-46.0); Mean Corpuscular Hemoglobin 31.1 pg (28.0-32.0); Mean Corpuscular Volume 91.9 fL (80.0-100.0)
[2025-01-03 06:27] LABS: Alkaline Phosphatase 93 U/L (46-116); Anion Gap 10 (5-15); BUN/Creatinine Ratio 11.9 (10.0-20.0); Potassium 4.2 mmol/L (3.5-5.1)
[2025-01-03 06:28] LABS: Bilirubin, Total 0.5 mg/dL (0.2-1.0)
[2025-01-03 06:50] LABS: Alanine Aminotransferase 212 U/L (7-40); Albumin 3.1 g/dL (3.2-4.8); Blood Urea Nitrogen 44 mg/dL (9-23); Calcium 8.5 mg/dL (8.7-10.4); Carbon Dioxide 19 mmol/L (20-31); Chloride 116 mmol/L (98-107); Glucose 113 mg/dL (74-106); Sodium 145 mmol/L (136-145); Total Protein 5.2 g/dL (5.7-8.2)
[2025-01-03 07:06] LABS: Magnesium 2.4 mg/dL (1.6-2.6)
[2025-01-03 07:18] LABS: INR 1.08 (0.9-1.15); Partial Thromboplastin Time 56.6 SEC (24.5-34.5); Prothrombin Time 11.4 sec (9.3-11.8)
[2025-01-03 07:27] LABS: Base Excess -8.0 mmol/L (-2.0-3.0)
--- NOTE | 2025-01-03 09:28 | DVHPN2 ---
Subjective Patient intubated and sedated Reviewed: Care Plan, H&P, Labs, Medications, Previous Orders Changes from previous H/P or p: No Changes General: Per HPI Objective Vitals Vital Signs Date Time Temp Pulse Resp B/P (MAP) Pulse Ox O2 Delivery O2 Flow Rate FiO2 01/03/25 08:29 64 24 129/52 (77) 100 35 01/03/25 08:00 98.6 98.6 01/03/25 07:45 Mechanical Ventilator+ Intake/Output Intake and Output 01/03/25 07:00 Intake Total 3072.00 ml Output Total 625 ml Balance 2447.00 ml Intake Oral 90 ml IV Total 2902.00 ml Tube Feeding 80 ml Output Urine Total 625 ml General Appearance: moderate distress, Other (Intubated and sedated) HEENT: Atraumatic, PERRLA Lungs: Clear to auscultation, Normal air movement, Other (Mechanical ventilation) Cardiovascular: Normal S1, Normal S2 Abdomen: Normal bowel sounds, Soft, No tenderness, No hepatospenomegaly, No masses Genitourinary: No Apparent Abnormalities Musculoskeletal: Normal sensory function, Normal motor function Neuro: Other (Unable to assess) Psych/Mental Status: Other (Unable to assess) Medications Current Medications Medications Dose Ordered Sig/Kimberly Route Start Time Stop Time Status Last Admin Dose Admin Epinephrine HCl 250 ml @ 7.5 mls/hr Q24H IV 12/30/24 18:00 12/30/24 18:00 7.5 MLS/HR Midazolam HCl 50 ml @ 1 mls/hr Q24H IV 12/30/24 18:15 01/03/25 07:25 7 MLS/HR Fentanyl Citrate 250 ml @ 2.5 mls/hr Q24H IV 12/30/24 18:15 01/02/25 17:32 12.5 MLS/HR Nitroglycerin 0.4 mg Q5MINP PRN SL 12/30/24 19:15 Morphine Sulfate 2 mg Q30M PRN IV 12/30/24 19:15 Diagnostic Test (Pha) 1 strip IQ4HR 12/30/24 20:00 01/03/25 04:00 1 STRIP Insulin Human Regular IQ4HR SC 12/30/24 20:00 01/02/25 04:26 2 UNITS Dextrose 50 ml UD PRN IV 12/30/24 19:15 Ondansetron HCl 4 mg Q4HP PRN IV 12/30/24 19:15 Acetaminophen 650 mg Q6HP PRN PO 12/30/24 19:15 01/01/25 16:06 650 MG Norepinephrine Bitartrate 250 ml @ 3.75 mls/hr Q24H IV 12/30/24 21:00 01/02/25 00:42 11.25 MLS/HR Sodium Chloride 1,000 ml @ 75 mls/hr [id number] IV 12/31/24 11:00 01/03/25 05:20 75 MLS/HR Albuterol 2.5 mg Q4HPRN PRN NEB 12/31/24 11:00 01/03/25 06:00 2.5 MG Ipratropium [place] 0.5 mg Q4HPRN PRN NEB 12/31/24 11:00 01/03/25 06:00 0.5 MG Pantoprazole Sodium 40 mg DAILY IV 01/01/25 10:00 01/02/25 09:59 40 MG Oseltamivir Phosphate 30 mg DAILY PO 01/01/25 10:00 01/06/25 09:59 01/02/25 09:59 30 MG Piperacillin Sod/ Tazobactam Sod 100 ml @ 25 mls/hr Q12H IV 01/01/25 18:00 01/03/25 05:20 25 MLS/HR Enteral Nutritional Formula 1,000 ml 30ML/HR GT 01/02/25 08:00 01/02/25 21:50 1,000 ML Heparin Sodium/ Dextrose 250 ml @ 9 mls/hr Q24H IV 01/03/25 01:00 01/03/25 01:00 9 MLS/HR Laboratory Results Laboratory Tests 01/03/25 05:04 Chemistry Test 01/03/25 05:04 Albumin 3.1 g/dL (3.2-4.8) L Calcium Level 8.5 mg/dL (8.7-10.4) L Magnesium Level 2.4 mg/dL (1.6-2.6) Total Protein 5.2 g/dL (5.7-8.2) L Coagulation Test 01/02/25 15:30 01/03/25 00:00 01/03/25 05:04 Prothrombin Time 11.9 sec (9.3-11.8) H 11.6 sec (9.3-11.8) 11.4 sec (9.3-11.8) Prothrombin Time INR 1.14 (0.9-1.15) 1.11 (0.9-1.15) 1.08 (0.9-1.15) Activated Partial Thromboplast Time 109.1 SEC (24.5-34.5) *H 89.3 SEC (24.5-34.5) *H 56.6 SEC (24.5-34.5) H LFT Test 01/03/25 05:04 Alanine Aminotransferase (ALT) 212 U/L (7-40) H Alkaline Phosphatase 93 U/L (46-116) Aspartate Amino Transferase (AST) 51 U/L (13-40) H Total Bilirubin 0.5 mg/dL (0.2-1.0) Urinalysis Test 12/31/24 08:15 Urine Color Yellow (Yellow) Urine Clarity Ex.turbid (Clear) Urine pH 5.5 (5.0-9.0) Urine Specific Robertson 1.016 (1.001-1.035) Urine Protein 1+ (Negative) H Urine Ketones Trace (Negative) Urine Blood 3+ /uL (Negative) H Urine Nitrite Negative (Negative) Urine Bilirubin Negative (Negative) Urine Urobilinogen Normal mg/dL (Negative) Urine Leukocyte Esterase 3+ /uL (Negative) Urine RBC 61 /hpf (0 - 4) Urine WBC Clumps Present /hpf (None Seen) Urine Microscopic WBC 59 /HPF (0-5) H Urine Squamous Epithelial Cells Few /hpf (<5) Urine Amorphous Crystals Few /hpf (None Seen) Urine Bacteria Few /hpf (None Seen) H Urine Glucose 1+ mg/dL (Normal) H Blood Gas Results Test 01/03/25 07:18 Arterial Blood pH 7.300 (7.350-7.450) FiO2 % 35.0 Microbiology Microbiology Date/Time Source Procedure Growth Status 12/31/24 10:15 Nose MRSA Screen - Final Complete 12/31/24 08:15 Voided Urine Urine Culture - Final Complete 12/30/24 19:54 Sputum Gram Stain - Final Complete 12/30/24 19:54 Sputum Respiratory Culture - Final Complete 12/30/24 17:41 Blood Blood Culture - Preliminary NO GROWTH AFTER 72 HOURS OF INCUBATION. Resulted Labs and/or images reviewed: Labs reviewed by me, Image(s) reviewed by me Assessment/Plan Assessment/Plan Impression: -cardiopulmonary arrest -acute hypoxic respiratory failure -septic shock -complicated cystitis -hypoglycemia, questionable underlying diabetes mellitus -shock liver -acute kidney injury, vasomotor nephropathy -Cholelithiasis -bilateral lower extremity DVT -cor pulmonale with bilateral pulmonary emboli Plan: Events: Patient is status post PE thrombectomy yesterday. Patient's FiO2 requirements improved. Currently on norepinephrine at 2 micrograms/minute. White blood cell count improving. Urine output 400 mL yesterday evening. -continue anticoagulation with heparin -Nephrology consult: Recommendations reviewed -weaned sedation and CPAP trial once appropriate -continue vasopressor therapy to keep map greater than 65 -continue Zosyn -continue current ventilator settings. Titrate to keep saturation greater than 93% -PPI -repeat labs, chest x-ray, ABG in a.m. Critical care time spent with patient discussing and formulating plan of care: 40 minutes. This does not include time spent performing procedures. This medical document was created using an electronic medical record system with Shoto dictation system. Although this document has been carefully reviewed, there may still be some phonetic and typographical errors. These areas are purely typographical due to imperfections of the software programs, and do not reflect any compromise in the patient's medical care. Plan discussed with: Patient, Other (RN) My Orders Orders - AUGUST BENDER NP Procedure Category Date Status Time Perc.Arterial XY 01/02/25 Taken Thrombectomy 13:59 Heparin Per Pharmacy [facility] 01/02/25 In Process Protocol 16:50 Heparin Drip/D5w PHA 01/03/25 In Process 100units/Ml 01:00 Heparin Per Pharmacy [facility] 01/03/25 In Process Protocol 01:56 PTPTT LAB 01/03/25 Logged 13:00 Heparin Per Pharmacy [facility] 01/03/25 In Process Protocol 08:49 Cpap Trial For Am ORDERS 01/03/25 Verified 09:21 Cpap/Sed Vacation Med ORDERS 01/03/25 Verified Weaning 09:21 Basic Metabolic Panel LAB 01/04/25 Verified 05:00 Basic Metabolic Panel LAB 01/05/25 Verified 05:00 Basic Metabolic Panel LAB 01/06/25 Verified 05:00 Date of Service: Jan 03, 2025 Billing Provider: AUGUST BENDER NP Common Visit Codes: 82806-[id number] CARE 30-74 MIN AUGUST BENDER NP Jan 03, 2025 09:27
--- NOTE | 2025-01-03 10:41 | DVHPN2 ---
Progress Note Date Seen: Jan 03, 2025 Medical Necessity Reason Pt with a Central, PICC or Fol: Yes The following are medically ne: Central Line, Smith Catheter Reason for smith catheter: Strict I&O Subjective Changes from previous H/P or p: Changes (S/P THROMBECTOMY OF PE BY IR) Review of Systems: RESPIRATORY:Abnormal Objective vital signs Vital Sign Date Time Temp Pulse Resp B/P (MAP) Pulse Ox O2 Delivery O2 Flow Rate FiO2 01/03/25 10:22 64 24 129/52 (77) 100 35 01/03/25 08:00 98.6 98.6 01/03/25 07:45 Mechanical Ventilator+ Total Intake and Output 01/02/25 01/02/25 01/03/25 15:00 23:00 07:00 Intake Total 1200.75 ml 935.75 ml 935.50 ml Output Total 225 ml 400 ml Balance 1200.75 ml 710.75 ml 535.50 ml medications Current Medications Medications Dose Ordered Sig/Kimberly Route Start Time Stop Time Status Last Admin Dose Admin Midazolam HCl 50 ml @ 1 mls/hr Q24H IV 12/30/24 18:15 01/03/25 07:25 7 MLS/HR Fentanyl Citrate 250 ml @ 2.5 mls/hr Q24H IV 12/30/24 18:15 01/02/25 17:32 12.5 MLS/HR Nitroglycerin 0.4 mg Q5MINP PRN SL 12/30/24 19:15 Morphine Sulfate 2 mg Q30M PRN IV 12/30/24 19:15 Diagnostic Test (Pha) 1 strip IQ4HR 12/30/24 20:00 01/03/25 04:00 1 STRIP Insulin Human Regular IQ4HR SC 12/30/24 20:00 01/02/25 04:26 2 UNITS Dextrose 50 ml UD PRN IV 12/30/24 19:15 Ondansetron HCl 4 mg Q4HP PRN IV 12/30/24 19:15 Acetaminophen 650 mg Q6HP PRN PO 12/30/24 19:15 01/01/25 16:06 650 MG Norepinephrine Bitartrate 250 ml @ 3.75 mls/hr Q24H IV 12/30/24 21:00 01/02/25 00:42 11.25 MLS/HR Sodium Chloride 1,000 ml @ 75 mls/hr [id number] IV 12/31/24 11:00 01/03/25 05:20 75 MLS/HR Albuterol 2.5 mg Q4HPRN PRN NEB 12/31/24 11:00 01/03/25 10:22 2.5 MG Ipratropium [place] 0.5 mg Q4HPRN PRN NEB 12/31/24 11:00 01/03/25 10:22 0.5 MG Pantoprazole Sodium 40 mg DAILY IV 01/01/25 10:00 01/02/25 09:59 40 MG Oseltamivir Phosphate 30 mg DAILY PO 01/01/25 10:00 01/06/25 09:59 01/02/25 09:59 30 MG Piperacillin Sod/ Tazobactam Sod 100 ml @ 25 mls/hr Q12H IV 01/01/25 18:00 01/03/25 05:20 25 MLS/HR Enteral Nutritional Formula 1,000 ml 30ML/HR GT 01/02/25 08:00 01/02/25 21:50 1,000 ML Heparin Sodium/ Dextrose 250 ml @ 9 mls/hr Q24H IV 01/03/25 01:00 01/03/25 01:00 9 MLS/HR Examination: GENERAL:Abnormal, LUNGS:Abnormal, CVS:Abnormal laboratory and microbiology Laboratory Tests 01/03/25 05:04 Test 01/03/25 05:04 Range/Units Serum Glucose 113 H 74-106 mg/dL Microbiology Date/Time Source Procedure Growth Status 12/31/24 10:15 Nose MRSA Screen - Final Complete 12/31/24 08:15 Voided Urine Urine Culture - Final Complete 12/30/24 19:54 Sputum Gram Stain - Final Complete 12/30/24 19:54 Sputum Respiratory Culture - Final Complete 12/30/24 17:41 Blood Blood Culture - Preliminary NO GROWTH AFTER 72 HOURS OF INCUBATION. Resulted Problem List/Assessment/Plan Problem List/Assessment/Plan Acute kidney injury likely ATN in the setting of shock Code blue status post resuscitation Ventilator-dependent hypoxic respiratory failure RV failure, pulm HTN pulmonary embolism S/P THROMBECTOMY IN IR DVT Continue IV fluids, diuretics PRN during PRBC REC PRBC TODAY DUE TO ACUTE HB DROP, this will improve oxygen carrying capacity as well High-risk for Worsening Acute kidney injury currently on heparin drip Evaluate FIN[employer]ER needs daily Anticoagulation critically ill, guarded prognosis Plan discussed with: Other My Orders My Orders Orders - PAIGE URIBE MD Procedure Category Date Status Time Type And Screen BBK 01/03/25 Logged 10:34 Dietary Evaluation Review Comments: 1) Consider TF Nepro Carbsteady @ 40ml/hr along with Pro-stat 1 pk BID. 2) TPN if NPO >7 days 3) Monitor NPO status, lab values, wt trend, I/O Expected Outcomes/Goals: To meet >75% estimated needs Lab values to improve Fu 2-3 days Critical Care Time (mins): 33 PAIGE URIBE MD Jan 03, 2025 10:41
[2025-01-03] MEDS ORDERED: FUROSEMIDE 40 MG/4 ML VIAL IV ONE (10:45)
--- NOTE | 2025-01-03 10:53 | DVH ---
PROCEDURE: Pulmonary angiography and interventions Procedural Personnel Attending physician(s): Tian Bardales Fellow physician(s): None Resident physician(s): None Advanced practice provider(s): None Pre-procedure diagnosis: Intermediate high risk pulmonary embolus Post-procedure diagnosis: Same Indication: Pulmonary embolism Additional clinical history: None Complications: No immediate complications. IMPRESSION: Angiography of the bilateral main pulmonary arteries demonstrates wide patency at case end following large bore aspiration thrombectomy (to the level of the main and lobar pulmonary arteries). Plan: Continue therapeutic anticoagulation. Right lower extremity straight x6 hours. Suture mediated closur e device to be removed at 24 hours post procedure. PROCEDURE SUMMARY: - Venous access with ultrasound guidance - Bilateral main pulmonary angiography - Superselective pulmonary angiography: Not performed - Pulmonary arterial interventions as described below - Additional procedure(s): None PROCEDURE DETAILS: Pre-procedure Consent: Informed consent for the procedure including risks, benefits and alternatives was obtained a nd time-out was performed prior to the procedure. Preparation: The site was prepared and draped using maximal sterile barrier technique including cutan eous antisepsis. Anesthesia/sedation Level of anesthesia/sedation: Moderate sedation (conscious sedation) Anesthesia/sedation administered by: Independent trained observer under attending supervision with co ntinuous monitoring of the patient s level of consciousness and physiologic status Total intra-service sedation time (minutes): 90 Access Local anesthesia was administered. The vessel was sonographically evaluated and determined to be flame channeler nically narrowed or diminutive. Suggestion of arterial flow within the femoral vein (possibly related to prior central venous catheter placement). Real time ultrasound was used to visualize needle entry into the vessel and a permanent image was stored. A 24 bolivian sheath was placed. Vein accessed: Right common femoral vein Access technique: Micropuncture set with 21 gauge needle Pulmonary angiography and interventions The pulmonary arterial system was catheterized using 6 bolivian angled pigtail catheter, glidewire Adva ntage, amplatz wire. Indication for angiography: Diagnostic angiography - there was no prior catheter-based angiographic s tudy available and a full diagnostic study was performed. The decision to intervene was based on the diagnostic study. Vessel catheterized: Right common femoral vein Findings: Markedly slowed flow into the IVC, suggesting right heart dysfunction. Vessel catheterized: Left main pulmonary artery Findings:Wide patency of the pulmonary arteries following large bore aspiration thrombectomy Selective vessel catheterized: Left lower lobe pulmonary artery Findings:Wide patency of the left lower lobe pulmonary artery at case end Thrombectomy Mechanical thrombectomy location: left lower lobar and main pulmonary arteries Mechanical thrombectomy device: [id number] and [id number] catheters Mechanical thrombectomy type: Aspiration Mechanical thrombectomy location: right interlobar and main pulmonary arteries Mechanical thrombectomy device: [id number] catheter Mechanical thrombectomy type: Aspiration Pressure measurements Pressure measurements were obtained via end-hole catheter. Location of pressure measurement: Main pulmonary artery - Systolic pressure (mmHg): 49 (pre); 35 (post) - Diastolic pressure (mmHg): 23 (pre); 31 (post) - Mean pressure (mmHg): 32 (pre); 28 (post) Closure The sheath was removed and hemostasis was achieved. Venous closure technique: Other-FlowStasis suture mediated device and manual compression Contrast Contrast agent: Visipaque 320 Contrast volume (mL): 50 Radiation Dose Fluoroscopy time (mm:Ss): 22:43 Reference air kerma (mGy): 263 Kerma area product (Gy-cm2): 44.60 Additional Details Additional description of procedure: None Registry event: None/3/g Device used: None Equipment details: None Unique Device Identifiers: Not available Specimens removed: None Estimated blood loss (mL): 11-50 Standardized report: [email or web address] Attestation Signer name: Tian Bardales I attest that I was present for the entire procedure. I reviewed the stored images and agree with the report as written.
[2025-01-03 13:43] LABS: INR 1.05 (0.9-1.15); Partial Thromboplastin Time 41.7 SEC (24.5-34.5); Prothrombin Time 11.1 sec (9.3-11.8)
--- NOTE | 2025-01-03 14:35 | CONS ---
Pharmacy Clinical Information: INCREASE HEPARIN DRIP RATE TO 1100 UNITS/HR PER APTT OF 41.7 NEXT APTT DRAW SCHEDULED FOR 2029 PER RX PROTOCOL IVÁN ESCOBAR CONFIRMED AND READ Charity LOWE Mai PHARMACIST Jan 03, 2025 14:35
[2025-01-03] MEDS: FUROSEMIDE 100 MG/10ML VIAL IV ONE (15:46)
[2025-01-03] MEDS: FUROSEMIDE 40 MG/4 ML VIAL IV SCH ×2 (16:00→22:10)
[2025-01-03 19:42] LABS: Base Excess -7.1 mmol/L (-2.0-3.0)
--- NOTE | 2025-01-03 20:04 | DVH ---
CHEST RADIOGRAPH Indication: desat 60% Technique: Single frontal view of the chest was obtained Comparison: XY CHEST PORTABLE on DOS: 01/03/25, XY CHEST PORTABLE on DOS: 01/02/25, XY CHEST PORTABLE on DOS: 01/01/25 FINDINGS: Lines and Tubes: Endotracheal tube 1.9 cm above the mikhail recommend withdrawal 1-2 cm. Enteric tube right internal jugular catheter in place change from 0528 Lungs: Worsening left lower lobe airspace disease Pleura: No effusion. No pneumothorax. Cardiomediastinal contours: Unremarkable Bones: No acute osseous abnormality. IMPRESSION: 1. Endotracheal tube 1.9 cm above the mikhail recommend withdrawal 1-2 cm. It is minimally changed fro m earlier film at 5:28 a.m. done same day 2. Right internal jugular catheter and enteric tube in place. 3. Worsening left lower lobe airspace disease.
[2025-01-03 21:16] LABS: INR 1.05 (0.9-1.15); Partial Thromboplastin Time 42.4 SEC (24.5-34.5); Prothrombin Time 11.1 sec (9.3-11.8)
[2025-01-03] MEDS: PROPOFOL 100 ML IV SCH (23:10)
[2025-01-03] MEDS: PROPOFOL 100 ML IV ONE (23:11)
[2025-01-04] VITALS (105 sets, daily range): BP systolic 87–156; BP diastolic 27–73; PULSE 48–89; RESP 23–24; TEMP 97.9–99.9; O2SAT 96–100
[2025-01-04 00:21] LABS: Base Excess -7.6 mmol/L (-2.0-3.0)
[2025-01-04] MEDS: NOREPINEPHRINE 8 MG/250ML KIT 250 ML IV SCH (02:30)
[2025-01-04 04:02] LABS: Hematocrit 25.5 % (36.0-46.0); Hemoglobin 8.7 g/dL (12.2-16.2); Mean Corpuscular Hemoglobin 30.6 pg (28.0-32.0); Mean Corpuscular Volume 89.7 fL (80.0-100.0); Nucleated Red Blood Cells % 0.1 %
[2025-01-04 05:19] LABS: Albumin 3.2 g/dL (3.2-4.8); Alkaline Phosphatase 104 U/L (46-116); Anion Gap 13 (5-15); BUN/Creatinine Ratio 14.2 (10.0-20.0); Potassium 4.1 mmol/L (3.5-5.1); Sodium 147 mmol/L (136-145)
[2025-01-04 05:20] LABS: Alanine Aminotransferase 171 U/L (7-40); Bilirubin, Total 0.5 mg/dL (0.2-1.0); Blood Urea Nitrogen 51 mg/dL (9-23); Calcium 8.6 mg/dL (8.7-10.4); Carbon Dioxide 20 mmol/L (20-31); Chloride 114 mmol/L (98-107); Glucose 142 mg/dL (74-106); Total Protein 5.1 g/dL (5.7-8.2)
[2025-01-04 05:31] LABS: INR 1.08 (0.9-1.15)
[2025-01-04 05:32] LABS: Partial Thromboplastin Time 55.2 SEC (24.5-34.5); Prothrombin Time 11.4 sec (9.3-11.8)
--- NOTE | 2025-01-04 06:12 | DVH ---
EXAM: XY CHEST PORTABLE HISTORY: pna COMPARISON: XY CHEST PORTABLE on DOS: 01/03/25, XY CHEST PORTABLE on DOS: 01/03/25, XY CHEST PORTABLE on DOS: 01/02/25, XY CHEST PORTABLE on DOS: 01/01/25, CT CT ANGIO CHEST CONTRAST on DOS: 01/01/25 TECHNIQUE: Portable AP view of the chest was performed. FINDINGS: Endotracheal tube is present, but the tip is not well visualized, possibly secondary to patient rotat ion. OG tube and right IJ central line are re-identified. There is increased opacity of the left hem ithorax, now with near-complete whiteout. No new right lung infiltrates or pneumothorax. The left hea rt border is obscured. IMPRESSION: 1. Mechanical ventilation. Endotracheal tube tip is not well visualized here. 2. Increased opacification of the left hemithorax with near complete white. This appearance may be d ue to worsening pneumonia, effusion, and/or mucous plugging with postobstructive atelectasis.
[2025-01-04 07:07] LABS: Base Excess -6.1 mmol/L (-2.0-3.0)
[2025-01-04] MEDS: methylPREDNISolone SOD SUCC 125 MG/2 ML VL IV ONE (08:37)
[2025-01-04] MEDS: BUMETANIDE 1mg/4ml VIAL (0.25mg/ml) IV ONE (08:39)
--- NOTE | 2025-01-04 09:00 | DVHPN2 ---
Subjective Patient intubated and sedated Reviewed: Care Plan, H&P, Labs, Medications, Previous Orders Changes from previous H/P or p: No Changes General: Per HPI Objective Vitals Vital Signs Date Time Temp Pulse Resp B/P (MAP) Pulse Ox O2 Delivery O2 Flow Rate FiO2 01/04/25 08:39 138/63 01/04/25 06:45 50 24 100 01/04/25 06:42 100 01/04/25 05:48 Mechanical Ventilator+ 01/04/25 04:00 98.6 98.6 Intake/Output Intake and Output 01/04/25 07:00 Intake Total 2430.645 ml Output Total 2850 ml Balance -419.355 ml Intake Oral 20 ml IV Total 1369.645 ml Tube Feeding 407 ml Blood Product 574 ml Other 60 ml Output Urine Total 2850 ml General Appearance: moderate distress, Other (Intubated and sedated) HEENT: Atraumatic, PERRLA Lungs: Clear to auscultation, Normal air movement, Other (Mechanical ventilation) Cardiovascular: Normal S1, Normal S2 Abdomen: Normal bowel sounds, Soft, No tenderness, No hepatospenomegaly, No masses Genitourinary: No Apparent Abnormalities Musculoskeletal: Normal sensory function, Normal motor function Neuro: Other (Unable to assess) Skin: Dry, Intact Psych/Mental Status: Other (Unable to assess) Medications Current Medications Medications Dose Ordered Sig/Kimberly Route Start Time Stop Time Status Last Admin Dose Admin Midazolam HCl 50 ml @ 1 mls/hr Q24H IV 12/30/24 18:15 01/04/25 08:10 8 MLS/HR Fentanyl Citrate 250 ml @ 2.5 mls/hr Q24H IV 12/30/24 18:15 01/04/25 02:09 27.5 MLS/HR Nitroglycerin 0.4 mg Q5MINP PRN SL 12/30/24 19:15 Morphine Sulfate 2 mg Q30M PRN IV 12/30/24 19:15 Diagnostic Test (Pha) 1 strip IQ4HR 12/30/24 20:00 01/04/25 08:19 1 STRIP Insulin Human Regular IQ4HR SC 12/30/24 20:00 01/04/25 04:00 2 UNITS Dextrose 50 ml UD PRN IV 12/30/24 19:15 Ondansetron HCl 4 mg Q4HP PRN IV 12/30/24 19:15 Acetaminophen 650 mg Q6HP PRN PO 12/30/24 19:15 01/01/25 16:06 650 MG Pantoprazole Sodium 40 mg DAILY IV 01/01/25 10:00 01/04/25 08:10 40 MG Oseltamivir Phosphate 30 mg DAILY PO 01/01/25 10:00 01/06/25 09:59 01/04/25 08:11 30 MG Piperacillin Sod/ Tazobactam Sod 100 ml @ 25 mls/hr Q12H IV 01/01/25 18:00 01/04/25 05:24 25 MLS/HR Enteral Nutritional Formula 1,000 ml 30ML/HR GT 01/02/25 08:00 01/02/25 21:50 1,000 ML Heparin Sodium/ Dextrose 250 ml @ 13 mls/hr [id number] IV 01/03/25 21:30 Propofol 100 ml @ 2.946 mls/ hr Q24H IV 01/03/25 23:00 01/04/25 08:10 2.946 MLS/HR Norepinephrine Bitartrate 250 ml @ 0.938 mls/ hr Q24H IV 01/04/25 02:30 Ipratropium [place] 0.5 mg Q6HR NEB 01/04/25 12:00 Acetylcysteine 200 mg Q6HR NEB 01/04/25 12:00 Furosemide 60 mg BIDD IV 01/04/25 18:00 Laboratory Results Laboratory Tests 01/04/25 03:53 Chemistry Test 01/04/25 03:53 Albumin 3.2 g/dL (3.2-4.8) Calcium Level 8.6 mg/dL (8.7-10.4) L Total Protein 5.1 g/dL (5.7-8.2) L Coagulation Test 01/03/25 13:06 01/03/25 20:44 01/04/25 03:53 01/04/25 04:50 Prothrombin Time 11.1 sec (9.3-11.8) 11.1 sec (9.3-11.8) 11.4 sec (9.3-11.8) Prothrombin Time INR 1.05 (0.9-1.15) 1.05 (0.9-1.15) 1.08 (0.9-1.15) Activated Partial Thromboplast Time 41.7 SEC (24.5-34.5) H 42.4 SEC (24.5-34.5) H 33.6 SEC (24.5-34.5) 55.2 SEC (24.5-34.5) H LFT Test 01/04/25 03:53 Alanine Aminotransferase (ALT) 171 U/L (7-40) H Alkaline Phosphatase 104 U/L (46-116) Aspartate Amino Transferase (AST) 46 U/L (13-40) H Total Bilirubin 0.5 mg/dL (0.2-1.0) Urinalysis Test 12/31/24 08:15 Urine Color Yellow (Yellow) Urine Clarity Ex.turbid (Clear) Urine pH 5.5 (5.0-9.0) Urine Specific [place] 1.016 (1.001-1.035) Urine Protein 1+ (Negative) H Urine Ketones Trace (Negative) Urine Blood 3+ /uL (Negative) H Urine Nitrite Negative (Negative) Urine Bilirubin Negative (Negative) Urine Urobilinogen Normal mg/dL (Negative) Urine Leukocyte Esterase 3+ /uL (Negative) Urine RBC 61 /hpf (0 - 4) Urine WBC Clumps Present /hpf (None Seen) Urine Microscopic WBC 59 /HPF (0-5) H Urine Squamous Epithelial Cells Few /hpf (<5) Urine Amorphous Crystals Few /hpf (None Seen) Urine Bacteria Few /hpf (None Seen) H Urine Glucose 1+ mg/dL (Normal) H Blood Gas Results Test 01/03/25 19:34 01/04/25 00:13 01/04/25 06:55 Arterial Blood pH 7.276 (7.350-7.450) 7.315 (7.350-7.450) 7.390 (7.350-7.450) FiO2 % 100.0 100.0 100.0 Microbiology Microbiology Date/Time Source Procedure Growth Status 12/31/24 10:15 Nose MRSA Screen - Final Complete 12/31/24 08:15 Voided Urine Urine Culture - Final Complete 12/30/24 19:54 Sputum Gram Stain - Final Complete 12/30/24 19:54 Sputum Respiratory Culture - Final Complete 12/30/24 17:41 Blood Blood Culture - Preliminary NO GROWTH AFTER 72 HOURS OF INCUBATION. Resulted Labs and/or images reviewed: Labs reviewed by me, Image(s) reviewed by me Assessment/Plan Assessment/Plan Impression: -cardiopulmonary arrest -acute hypoxic respiratory failure -septic shock -complicated cystitis -hypoglycemia, questionable underlying diabetes mellitus -shock liver -acute kidney injury, vasomotor nephropathy -Cholelithiasis -bilateral lower extremity DVT -cor pulmonale with bilateral pulmonary emboli Plan: Events: Patient received 1 unit PRBC. Post transfusion, patient had acute hypoxia. Patient now on 100% FiO2, peep of eight. Reviewing patient's vital signs, I was not notified yesterday regarding patient's decline in status. -Bumex 1 mg IV push x1 now. Solu-Medrol 80 mg IV x1 now. CT scan of the chest. Saturations noted to be 100%, please weaned FiO2 down. -continue anticoagulation with heparin -Nephrology consult: Recommendations reviewed -weaned sedation and CPAP trial once appropriate -continue vasopressor therapy to keep map greater than 65 -continue Zosyn -continue current ventilator settings. Titrate to keep saturation greater than 93% -PPI -repeat labs, chest x-ray, ABG in a.m. Critical care time spent with patient discussing and formulating plan of care: 40 minutes. This does not include time spent performing procedures. This medical document was created using an electronic medical record system with [employer] dictation system. Although this document has been carefully reviewed, there may still be some phonetic and typographical errors. These areas are purely typographical due to imperfections of the software programs, and do not reflect any compromise in the patient's medical care. Plan discussed with: Patient, Other (RN) My Orders Orders - AUGUST BENDER NP Procedure Category Date Status Time Cpap Trial For Am ORDERS 01/03/25 Transmitted 09:21 Cpap/Sed Vacation Med ORDERS 01/03/25 Transmitted Weaning 09:21 Basic Metabolic Panel LAB 01/05/25 Verified 05:00 Basic Metabolic Panel LAB 01/06/25 Verified 05:00 Communication Order ORDERS 01/03/25 Transmitted 09:30 Heparin Per Pharmacy [facility] 01/03/25 In Process Protocol 14:33 Chest Portable XY 01/03/25 Resulted 19:23 Heparin Drip/D5w PHA 01/03/25 In Process 100units/Ml 21:30 Norepinephrine 8 PHA 01/04/25 In Process Mg/250ml Kit 02:30 PTPTT LAB 01/04/25 Logged 10:50 Heparin Per Pharmacy [facility] 01/04/25 In Process Protocol 06:[address] 01/04/25 Logged 07:55 Ipratropium Medneb PHA 01/04/25 In Process (Atrovent Medneb) 12:00 Acetylcysteine PHA 01/04/25 In Process Inhalation 20% 12:00 PTPTT LAB 01/04/25 Verified 09:30 Date of Service: Jan 04, 2025 Billing Provider: AUGUST BENDER NP Common Visit Codes: [id number] CARE 30-74 MIN AUGUST BENDER NP Jan 04, 2025 09:00
[2025-01-04 11:12] LABS: INR 1.08 (0.9-1.15); Partial Thromboplastin Time 62.6 SEC (24.5-34.5); Prothrombin Time 11.4 sec (9.3-11.8)
[2025-01-04] MEDS: IPRATROPIUM BROM 0.5 MG/2.5ML INH SOL NEB SCH (11:22)
[2025-01-04] MEDS: ACETYLCYSTEINE 20%(200MG/ML) SOL 4ML NEB SCH (11:22)
[2025-01-04] MEDS ORDERED: IPRATROPIUM BROM 0.5 MG/2.5ML INH SOL NEB SCH (12:00)
--- NOTE | 2025-01-04 12:05 | DVH ---
CLINICAL INFORMATION: Acute left lung opacities. TECHNIQUE: Axial CT imaging of the chest was performed without IV contrast. Sagittal and coronal refo rmatted images were made, stored and reviewed. Evaluation is limited without IV contrast. One or more of the following dose reduction techniques were used: Automated exposure control. Adjustment of mA a nd/or kV according to patient size. CTDIvol = 25.27 mGy DLP = 25.27 mGy-cm COMPARISON: XY CHEST PORTABLE on DOS: 01/04/25, XY CHEST PORTABLE on DOS: 01/03/25, XY CHEST PORTABLE on DOS: 01/03/25. CTA chest dated 01/01/2025. FINDINGS: Aorta: No aneurysm or significant calcification. Cardiac: Heart size is within normal limits. No significant calcification. Mediastinum/gabriela: No mass or adenopathy. Partially visualized endotracheal tube terminates above the level of the mikhail. Enteric tube reaches the stomach. Lungs: Small bilateral pleural effusions. Atelectasis and consolidations in the lower lobes bilateral ly, left greater than right, completely opacifying the left lower lobe. Additional scattered areas of subsegmental atelectasis are seen. Ground-glass opacities in the right upper lobe, may be infectious or inflammatory in nature. Respiratory motion artifact limits evaluation. Pulmonary arteries: Dilated main pulmonary artery measuring up to 3.4 cm in diameter, may be seen wit h pulmonary arterial hypertension in the appropriate clinical setting. Chest wall: No mass or other abnormality. Upper abdomen: Unchanged right adrenal nodule measuring up to 3 cm with indeterminate density. Bones: No fracture or suspicious intraosseous lesions. IMPRESSION: 1. Small bilateral pleural effusions with overlying atelectasis and consolidations in the lower lobes , left greater than right, with complete opacification of the left lower lobe. Findings may be due to pneumonia or aspiration in the appropriate clinical setting. 2. Ground-glass opacities in the right upper lobe, possibly infectious or inflammatory in nature. 3. Findings consistent with pulmonary arterial hypertension in the appropriate clinical setting. 4. Additional findings as detailed above.
[2025-01-04 14:30] LABS: Potassium 3.7 mmol/L (3.5-5.1)
[2025-01-04 14:31] LABS: Anion Gap 11 (5-15); Calcium 9.0 mg/dL (8.7-10.4); Carbon Dioxide 23 mmol/L (20-31)
[2025-01-04 14:32] LABS: Chloride 113 mmol/L (98-107); Sodium 147 mmol/L (136-145)
[2025-01-04 14:37] LABS: BUN/Creatinine Ratio 13.4 (10.0-20.0)
[2025-01-04 14:38] LABS: Magnesium 2.3 mg/dL (1.6-2.6)
[2025-01-04 14:39] LABS: Blood Urea Nitrogen 49 mg/dL (9-23); Glucose 138 mg/dL (74-106)
[2025-01-04 16:22] LABS: INR 1.04 (0.9-1.15); Partial Thromboplastin Time 65.8 SEC (24.5-34.5); Prothrombin Time 11.0 sec (9.3-11.8)
[2025-01-04] MEDS: FUROSEMIDE 100 MG/10ML VIAL IV SCH (16:52)
--- NOTE | 2025-01-04 17:23 | DVHPN2 ---
Progress Note Date Seen: Jan 04, 2025 Medical Necessity Reason Pt with a Central, PICC or Fol: Yes The following are medically ne: Central Line, Smith Catheter Reason for smith catheter: Strict I&O Subjective Patient reports: Feels worse Review of Systems: Deferred Objective vital signs Vital Sign Date Time Temp Pulse Resp B/P (MAP) Pulse Ox O2 Delivery O2 Flow Rate FiO2 01/04/25 16:52 114/63 01/04/25 15:40 49 24 100 45 01/04/25 14:30 98.4 209.1 01/04/25 14:00 Mechanical Ventilator+ Total Intake and Output 01/03/25 01/03/25 01/04/25 15:00 23:00 07:00 Intake Total 570.876 ml 883.5 ml 976.269 ml Output Total 650 ml 2200 ml Balance 570.876 ml 233.5 ml -1223.731 ml medications Current Medications Medications Dose Ordered Sig/Kimberly Route Start Time Stop Time Status Last Admin Dose Admin Midazolam HCl 50 ml @ 1 mls/hr Q24H IV 12/30/24 18:15 01/04/25 16:49 8 MLS/HR Fentanyl Citrate 250 ml @ 2.5 mls/hr Q24H IV 12/30/24 18:15 01/04/25 02:09 27.5 MLS/HR Nitroglycerin 0.4 mg Q5MINP PRN SL 12/30/24 19:15 Morphine Sulfate 2 mg Q30M PRN IV 12/30/24 19:15 Diagnostic Test (Pha) 1 strip IQ4HR 12/30/24 20:00 01/04/25 16:00 1 STRIP Insulin Human Regular IQ4HR SC 12/30/24 20:00 01/04/25 16:50 2 UNITS Dextrose 50 ml UD PRN IV 12/30/24 19:15 Ondansetron HCl 4 mg Q4HP PRN IV 12/30/24 19:15 Acetaminophen 650 mg Q6HP PRN PO 12/30/24 19:15 01/01/25 16:06 650 MG Pantoprazole Sodium 40 mg DAILY IV 01/01/25 10:00 01/04/25 08:10 40 MG Oseltamivir Phosphate 30 mg DAILY PO 01/01/25 10:00 01/06/25 09:59 01/04/25 08:11 30 MG Piperacillin Sod/ Tazobactam Sod 100 ml @ 25 mls/hr Q12H IV 01/01/25 18:00 01/04/25 05:24 25 MLS/HR Enteral Nutritional Formula 1,000 ml 30ML/HR GT 01/02/25 08:00 01/02/25 21:50 1,000 ML Heparin Sodium/ Dextrose 250 ml @ 13 mls/hr [id number] IV 01/03/25 21:30 01/04/25 17:06 13 MLS/HR Propofol 100 ml @ 2.946 mls/ hr Q24H IV 01/03/25 23:00 01/04/25 08:10 2.946 MLS/HR Norepinephrine Bitartrate 250 ml @ 0.938 mls/ hr Q24H IV 01/04/25 02:30 Ipratropium [place] 0.5 mg Q6HR NEB 01/04/25 12:00 01/04/25 11:22 0.5 MG Acetylcysteine 200 mg Q6HR NEB 01/04/25 12:00 01/04/25 11:22 200 MG Furosemide 60 mg BIDD IV 01/04/25 18:00 01/04/25 16:52 60 MG Albuterol 2.5 mg Q6HR NEB 01/04/25 18:00 Examination: GENERAL:Abnormal, LUNGS:Abnormal, CVS:Abnormal, SKIN:Abnormal laboratory and microbiology Laboratory Tests 01/04/25 14:00 01/04/25 03:53 Test 01/04/25 14:00 Range/Units Serum Glucose 138 H 74-106 mg/dL Microbiology Date/Time Source Procedure Growth Status 12/31/24 10:15 Nose MRSA Screen - Final Complete 12/31/24 08:15 Voided Urine Urine Culture - Final Complete 12/30/24 19:54 Sputum Gram Stain - Final Complete 12/30/24 19:54 Sputum Respiratory Culture - Final Complete 12/30/24 17:41 Blood Blood Culture - Preliminary NO GROWTH AFTER 72 HOURS OF INCUBATION. Resulted Problem List/Assessment/Plan Problem List/Assessment/Plan Acute kidney injury likely ATN in the setting of shock Code blue status post resuscitation Ventilator-dependent hypoxic respiratory failure RV failure, pulm HTN pulmonary embolism S/P THROMBECTOMY IN IR DVT influenza PNA increase diuresis goal to achieve daily 1-2L neg currently on heparin ip replace electrolytes vent requirements went up last night but are now decreasing Evaluate [employer] needs daily, Anticoagulation critically ill, guarded prognosis Plan discussed with: Other My Orders My Orders Orders - PAIGE URIBE MD Procedure Category Date Status Time Furosemide Injection PHA 01/04/25 In Process (Lasix Injection) 18:00 Dietary Evaluation Review Comments: 1) Consider TF Nepro Carbsteady @ 40ml/hr along with Pro-stat 1 pk BID. 2) TPN if NPO >7 days 3) Monitor NPO status, lab values, wt trend, I/O Expected Outcomes/Goals: To meet >75% estimated needs Lab values to improve Fu 2-3 days Critical Care Time (mins): 33 PAIGE URIBE MD Jan 04, 2025 17:23
--- NOTE | 2025-01-04 17:37 | DVHPN2 ---
Progress Note - Dictate Date Seen: Jan 04, 2025 Medical Necessity Reason Pt with a Central, PICC or Fol: Yes The following are medically ne: Central Line, Smith Catheter Reason for smith catheter: Strict I&O vital signs Vital Sign Date Time Temp Pulse Resp B/P (MAP) Pulse Ox O2 Delivery O2 Flow Rate FiO2 01/04/25 16:52 114/63 01/04/25 15:40 49 24 100 45 01/04/25 14:30 98.4 209.1 01/04/25 14:00 Mechanical Ventilator+ Total Intake and Output 01/03/25 01/03/25 01/04/25 15:00 23:00 07:00 Intake Total 570.876 ml 883.5 ml 976.269 ml Output Total 650 ml 2200 ml Balance 570.876 ml 233.5 ml -1223.731 ml medications Current Medications Medications Dose Ordered Sig/Kimberly Route Start Time Stop Time Status Last Admin Dose Admin Midazolam HCl 50 ml @ 1 mls/hr Q24H IV 12/30/24 18:15 01/04/25 16:49 8 MLS/HR Fentanyl Citrate 250 ml @ 2.5 mls/hr Q24H IV 12/30/24 18:15 01/04/25 02:09 27.5 MLS/HR Nitroglycerin 0.4 mg Q5MINP PRN SL 12/30/24 19:15 Morphine Sulfate 2 mg Q30M PRN IV 12/30/24 19:15 Diagnostic Test (Pha) 1 strip IQ4HR 12/30/24 20:00 01/04/25 16:00 1 STRIP Insulin Human Regular IQ4HR SC 12/30/24 20:00 01/04/25 16:50 2 UNITS Dextrose 50 ml UD PRN IV 12/30/24 19:15 Ondansetron HCl 4 mg Q4HP PRN IV 12/30/24 19:15 Acetaminophen 650 mg Q6HP PRN PO 12/30/24 19:15 01/01/25 16:06 650 MG Pantoprazole Sodium 40 mg DAILY IV 01/01/25 10:00 01/04/25 08:10 40 MG Oseltamivir Phosphate 30 mg DAILY PO 01/01/25 10:00 01/06/25 09:59 01/04/25 08:11 30 MG Piperacillin Sod/ Tazobactam Sod 100 ml @ 25 mls/hr Q12H IV 01/01/25 18:00 01/04/25 05:24 25 MLS/HR Enteral Nutritional Formula 1,000 ml 30ML/HR GT 01/02/25 08:00 01/02/25 21:50 1,000 ML Heparin Sodium/ Dextrose 250 ml @ 13 mls/hr [id number] IV 01/03/25 21:30 01/04/25 17:06 13 MLS/HR Propofol 100 ml @ 2.946 mls/ hr Q24H IV 01/03/25 23:00 01/04/25 08:10 2.946 MLS/HR Norepinephrine Bitartrate 250 ml @ 0.938 mls/ hr Q24H IV 01/04/25 02:30 Ipratropium [place] 0.5 mg Q6HR [facility] 01/04/25 12:00 01/04/25 11:22 0.5 MG Acetylcysteine 200 mg Q6HR [facility] 01/04/25 12:00 01/04/25 11:22 200 MG Albuterol 2.5 mg Q6HR [facility] 01/04/25 18:00 Furosemide 100 mg/ Sodium Chloride 110 ml @ 11 mls/hr Q10H IV 01/04/25 17:30 laboratory and microbiology Laboratory Tests 01/04/25 14:00 01/04/25 03:53 Test 01/04/25 14:00 Range/Units Serum Glucose 138 H 74-106 mg/dL Assessment/Plan Covering for Dr. Russo Impression Acute hypoxemic respiratory failure Acute pulmonary embolism S/p cardiac arrest Pneumonia Patient seen and examined Events On mechanical ventilation S/p intubation PEEP 8, FiO2 100% S/p thrombectomy Labs and imaging reviewed CT of the chest shows bilateral infiltrates, greater on the left ABG reviewed Management Vent support Titrate to maintain sats 90% or above Sedation for vent synchrony Continue antibiotics F/u cultures Bronchodilators Monitor renal function Monitor electrolytes Supplement as needed Pressors as needed for hemodynamic support To maintain a mean arterial pressure of 65 mmHg Anticoagulation therapy DVT prophylaxis Critical care time 35 minutes Dietary Evaluation Review Comments: 1) Consider TF Nepro Carbsteady @ 40ml/hr along with Pro-stat 1 pk BID. 2) TPN if NPO >7 days 3) Monitor NPO status, lab values, wt trend, I/O Expected Outcomes/Goals: To meet >75% estimated needs Lab values to improve Fu 2-3 days Plan discussed with: Other (Rn) CHARI MERCHANT MD Jan 04, 2025 17:37
[2025-01-04] MEDS: ALBUTEROL SULF 2.5 MG/0.5ML(0.5%) NEB SOLN NEB SCH (18:05)
[2025-01-04] MEDS: FUROSEMIDE INJECTION 100 MG in SODIUM CHL 0.9% 100 ML IV SCH (19:28)
[2025-01-05] VITALS (109 sets, daily range): BP systolic 90–195; BP diastolic 39–94; PULSE 50–96; RESP 17–31; TEMP 96.8–100.2; O2SAT 96–100
[2025-01-05 04:12] LABS: Hematocrit 26.5 % (36.0-46.0); Hemoglobin 9.1 g/dL (12.2-16.2); Mean Corpuscular Hemoglobin 30.3 pg (28.0-32.0); Mean Corpuscular Volume 88.3 fL (80.0-100.0); Nucleated Red Blood Cells % 0.2 %
[2025-01-05 04:21] LABS: Anion Gap 12 (5-15); Carbon Dioxide 25 mmol/L (20-31); Potassium 3.5 mmol/L (3.5-5.1)
[2025-01-05 04:23] LABS: Calcium 9.4 mg/dL (8.7-10.4)
[2025-01-05 04:24] LABS: Chloride 109 mmol/L (98-107); INR 1.03 (0.9-1.15); Partial Thromboplastin Time 70.0 SEC (24.5-34.5); Prothrombin Time 10.9 sec (9.3-11.8); Sodium 146 mmol/L (136-145)
[2025-01-05 04:28] LABS: BUN/Creatinine Ratio 13.6 (10.0-20.0); Blood Urea Nitrogen 51 mg/dL (9-23); Glucose 134 mg/dL (74-106)
--- NOTE | 2025-01-05 05:08 | DVH ---
CHEST RADIOGRAPH Indication: Intubated Technique: Single frontal view of the chest was obtained COMPARISON: CT CHEST WITHOUT CONTRAST on DOS: 01/04/25, XY CHEST PORTABLE on DOS: 01/04/25, XY CHEST PORT ABLE on DOS: 01/03/25, XY CHEST PORTABLE on DOS: 01/03/25, XY CHEST PORTABLE on DOS: 01/02/25 FINDINGS: Lines and Tubes: Endotracheal tube tip projects approximately 2.6 cm above the level of the mikhail. E nteric catheter courses below the level of the diaphragm and terminates beyond the inferior margin of the image. Right internal jugular central venous catheter tip projects over the expected location o f the distal superior vena cava. Lungs: Interval clearing of left hemithoracic pulmonary airspace disease with small residual left ple ural effusion and mild residual diffuse increased prominence of the pulmonary vasculature. No pneumothorax. Cardiomediastinal contours: Cardiomegaly. Bones: Unremarkable IMPRESSION: 1. Interval clearing of left hemithoracic pulmonary airspace disease with small residual left pleural effusion and mild residual diffuse increased prominence of the pulmonary vasculature. 2. Cardiomegaly. 3. Lines and tubes as above.
[2025-01-05] MEDS: POTASSIUM CHL 20MEQ/100ML 100 ML IV ONE (06:15)
[2025-01-05 06:17] LABS: Base Excess -2.2 mmol/L (-2.0-3.0)
--- NOTE | 2025-01-05 08:37 | DVHPN2 ---
Subjective Patient intubated and sedated Reviewed: Care Plan, H&P, Labs, Medications, Previous Orders Changes from previous H/P or p: No Changes General: Per HPI Objective Vitals Vital Signs Date Time Temp Pulse Resp B/P (MAP) Pulse Ox O2 Delivery O2 Flow Rate FiO2 01/05/25 08:18 117/64 01/05/25 07:42 63 24 96 30 01/05/25 07:00 97.5 207.5 01/05/25 06:00 Mechanical Ventilator+ Intake/Output Intake and Output 01/05/25 07:00 Intake Total 1426.080 ml Output Total 5100 ml Balance -3673.920 ml IV Total 1136.080 ml Tube Feeding 230 ml Other 60 ml Output Urine Total 5100 ml General Appearance: moderate distress, Other (Intubated and sedated) HEENT: Atraumatic, PERRLA Lungs: Clear to auscultation, Normal air movement, Other (Mechanical ventilation) Cardiovascular: Normal S1, Normal S2 Abdomen: Normal bowel sounds, Soft, No tenderness, No hepatospenomegaly, No masses Genitourinary: No Apparent Abnormalities Musculoskeletal: Normal sensory function, Normal motor function Neuro: Other (Unable to assess) Skin: Dry, Intact Psych/Mental Status: Other (Unable to assess) Medications Current Medications Medications Dose Ordered Sig/Kimberly Route Start Time Stop Time Status Last Admin Dose Admin Midazolam HCl 50 ml @ 1 mls/hr Q24H IV 12/30/24 18:15 01/05/25 04:57 6 MLS/HR Fentanyl Citrate 250 ml @ 2.5 mls/hr Q24H IV 12/30/24 18:15 01/04/25 20:54 10 MLS/HR Nitroglycerin 0.4 mg Q5MINP PRN SL 12/30/24 19:15 Morphine Sulfate 2 mg Q30M PRN IV 12/30/24 19:15 Diagnostic Test (Pha) 1 strip IQ4HR 12/30/24 20:00 01/05/25 04:51 1 STRIP Insulin Human Regular IQ4HR SC 12/30/24 20:00 01/05/25 08:01 2 UNITS Dextrose 50 ml UD PRN IV 12/30/24 19:15 Ondansetron HCl 4 mg Q4HP PRN IV 12/30/24 19:15 Acetaminophen 650 mg Q6HP PRN PO 12/30/24 19:15 01/01/25 16:06 650 MG Pantoprazole Sodium 40 mg DAILY IV 01/01/25 10:00 01/04/25 08:10 40 MG Oseltamivir Phosphate 30 mg DAILY PO 01/01/25 10:00 01/06/25 09:59 01/04/25 08:11 30 MG Piperacillin Sod/ Tazobactam Sod 100 ml @ 25 mls/hr Q12H IV 01/01/25 18:00 01/05/25 06:12 25 MLS/HR Enteral Nutritional Formula 1,000 ml 30ML/HR GT 01/02/25 08:00 01/02/25 21:50 1,000 ML Heparin Sodium/ Dextrose 250 ml @ 13 mls/hr [id number] IV 01/03/25 21:30 01/04/25 17:06 13 MLS/HR Propofol 100 ml @ 2.946 mls/ hr Q24H IV 01/03/25 23:00 01/05/25 06:50 2.946 MLS/HR Norepinephrine Bitartrate 250 ml @ 0.938 mls/ hr Q24H IV 01/04/25 02:30 Ipratropium [place] 0.5 mg Q6HR NEB 01/04/25 12:00 01/05/25 06:03 0.5 MG Acetylcysteine 200 mg Q6HR NEB 01/04/25 12:00 01/05/25 06:03 200 MG Albuterol 2.5 mg Q6HR NEB 01/04/25 18:00 01/05/25 06:03 2.5 MG Furosemide 100 mg/ Sodium Chloride 110 ml @ 11 mls/hr Q10H IV 01/04/25 17:30 01/05/25 05:02 11 MLS/HR Laboratory Results Laboratory Tests 01/05/25 03:35 Chemistry Test 01/04/25 14:00 01/05/25 03:35 Calcium Level 9.0 mg/dL (8.7-10.4) 9.4 mg/dL (8.7-10.4) Magnesium Level 2.3 mg/dL (1.6-2.6) Coagulation Test 01/04/25 09:52 01/04/25 15:33 01/05/25 03:35 Prothrombin Time 11.4 sec (9.3-11.8) 11.0 sec (9.3-11.8) 10.9 sec (9.3-11.8) Prothrombin Time INR 1.08 (0.9-1.15) 1.04 (0.9-1.15) 1.03 (0.9-1.15) Activated Partial Thromboplast Time 62.6 SEC (24.5-34.5) H 65.8 SEC (24.5-34.5) H 70.0 SEC (24.5-34.5) H Urinalysis Test 12/31/24 08:15 Urine Color Yellow (Yellow) Urine Clarity Ex.turbid (Clear) Urine pH 5.5 (5.0-9.0) Urine Specific [place] 1.016 (1.001-1.035) Urine Protein 1+ (Negative) H Urine Ketones Trace (Negative) Urine Blood 3+ /uL (Negative) H Urine Nitrite Negative (Negative) Urine Bilirubin Negative (Negative) Urine Urobilinogen Normal mg/dL (Negative) Urine Leukocyte Esterase 3+ /uL (Negative) Urine RBC 61 /hpf (0 - 4) Urine WBC Clumps Present /hpf (None Seen) Urine Microscopic WBC 59 /HPF (0-5) H Urine Squamous Epithelial Cells Few /hpf (<5) Urine Amorphous Crystals Few /hpf (None Seen) Urine Bacteria Few /hpf (None Seen) H Urine Glucose 1+ mg/dL (Normal) H Blood Gas Results Test 01/05/25 06:12 Arterial Blood pH 7.396 (7.350-7.450) FiO2 % 30.0 Microbiology Microbiology Date/Time Source Procedure Growth Status 12/31/24 10:15 Nose MRSA Screen - Final Complete 12/31/24 08:15 Voided Urine Urine Culture - Final Complete 12/30/24 19:54 Sputum Gram Stain - Final Complete 12/30/24 19:54 Sputum Respiratory Culture - Final Complete 12/30/24 17:41 Blood Blood Culture - Final NO GROWTH AFTER 5 DAYS OF INCUBATION. Complete Labs and/or images reviewed: Labs reviewed by me, Image(s) reviewed by me Assessment/Plan Assessment/Plan Impression: -cardiopulmonary arrest -acute hypoxic respiratory failure -septic shock -complicated cystitis -hypoglycemia, questionable underlying diabetes mellitus -shock liver -acute kidney injury, vasomotor nephropathy -Cholelithiasis -bilateral lower extremity DVT -cor pulmonale with bilateral pulmonary emboli Plan: Events: Patient now on 30% FiO2. Repeat chest x-ray this a.m. reveals improvement with left lower lung opacity. Probable mucus plugging, resolved with percussion, bronchodilators and Mucomyst. Improvement with urine output, now on Lasix drip. -weaned sedation and CPAP trial -continue anticoagulation with heparin -Nephrology consult: Recommendations reviewed -weaned sedation and CPAP trial once appropriate -continue vasopressor therapy to keep map greater than 65. Norepinephrine currently off -continue Zosyn -continue current ventilator settings. Titrate to keep saturation greater than 93% -PPI -repeat labs, chest x-ray, ABG in a.m. Critical care time spent with patient discussing and formulating plan of care: 40 minutes. This does not include time spent performing procedures. This medical document was created using an electronic medical record system with [employer] dictation system. Although this document has been carefully reviewed, there may still be some phonetic and typographical errors. These areas are purely typographical due to imperfections of the software programs, and do not reflect any compromise in the patient's medical care. Plan discussed with: Patient, Other (RN) My Orders Orders - AUGUST BENDER NP Procedure Category Date Status Time Heparin Per Pharmacy [facility] 01/04/25 In Process Protocol 11:30 Albuterol Medneb PHA 01/04/25 In Process (Ventolin Medneb) 18:00 Heparin Per Pharmacy [facility] 01/04/25 In Process Protocol 16:41 Chest Percussion Tx RT 01/04/25 Logged Initi 17:13 Heparin Per Pharmacy [facility] 01/05/25 In Process Protocol 05:09 Continuous Monitoring [facility] 01/05/25 Transmitted Of Cvp,P 08:30 Comprehensive LAB 01/06/25 Verified Metabolic Panel 04:00 Complete Blood Count LAB 01/06/25 Verified 05:00 Complete Blood Count LAB 01/07/25 Verified 05:00 Complete Blood Count LAB 01/08/25 Verified 05:00 Chest Portable XY 01/06/25 Transmitted 05:00 Chest Portable XY 01/07/25 Transmitted 05:00 Chest Portable XY 01/08/25 Transmitted 05:00 Date of Service: Jan 05, 2025 Billing Provider: AUGUST BENDER NP Common Visit Codes: [id number] CARE 30-74 MIN AUGUST BENDER NP Jan 05, 2025 08:37
--- NOTE | 2025-01-05 10:47 | CONS ---
Pharmacy Clinical Information: HEPARIN DRIP UPDATE PTT 70 CURRENT RATE 1300UNITS/HR (13ML/HR) NO CHANGE NEXT PTT 01/06/25 @0500 COMMUNICATED WITH RN CARLOS WARREN PHARMACIST Jan 05, 2025 10:47
[2025-01-05] MEDS: FUROSEMIDE INJECTION 100 MG in SODIUM CHL 0.9% 100 ML IV SCH (14:50)
[2025-01-05] MEDS: POTASSIUM CHL 20MEQ/100ML 100 ML IV SCH (14:50)
--- NOTE | 2025-01-05 15:00 | DVHPN2 ---
Progress Note Date Seen: Jan 05, 2025 Medical Necessity Reason Pt with a Central, PICC or Fol: Yes The following are medically ne: Central Line, Smith Catheter Reason for smith catheter: Strict I&O Subjective Review of Systems: Deferred Objective vital signs Vital Sign Date Time Temp Pulse Resp B/P (MAP) Pulse Ox O2 Delivery O2 Flow Rate FiO2 01/05/25 14:50 124/62 01/05/25 14:18 70 26 99 30 01/05/25 14:00 Mechanical Ventilator+ 01/05/25 14:00 99.1 210.4 Total Intake and Output 01/04/25 01/04/25 01/05/25 15:00 23:00 07:00 Intake Total 380.944 ml 500.568 ml 544.568 ml Output Total 2300 ml 2800 ml Balance 380.944 ml -1799.432 ml -2255.432 ml medications Current Medications Medications Dose Ordered Sig/Kimberly Route Start Time Stop Time Status Last Admin Dose Admin Midazolam HCl 50 ml @ 1 mls/hr Q24H IV 12/30/24 18:15 01/05/25 04:57 6 MLS/HR Fentanyl Citrate 250 ml @ 2.5 mls/hr Q24H IV 12/30/24 18:15 01/04/25 20:54 10 MLS/HR Nitroglycerin 0.4 mg Q5MINP PRN SL 12/30/24 19:15 Morphine Sulfate 2 mg Q30M PRN IV 12/30/24 19:15 Diagnostic Test (Pha) 1 strip IQ4HR 12/30/24 20:00 01/05/25 12:07 1 STRIP Insulin Human Regular IQ4HR SC 12/30/24 20:00 01/05/25 12:06 2 UNITS Dextrose 50 ml UD PRN IV 12/30/24 19:15 Ondansetron HCl 4 mg Q4HP PRN IV 12/30/24 19:15 Acetaminophen 650 mg Q6HP PRN PO 12/30/24 19:15 01/01/25 16:06 650 MG Pantoprazole Sodium 40 mg DAILY IV 01/01/25 10:00 01/05/25 10:15 40 MG Oseltamivir Phosphate 30 mg DAILY PO 01/01/25 10:00 01/06/25 09:59 01/05/25 10:15 30 MG Piperacillin Sod/ Tazobactam Sod 100 ml @ 25 mls/hr Q12H IV 01/01/25 18:00 01/05/25 06:12 25 MLS/HR Enteral Nutritional Formula 1,000 ml 30ML/HR GT 01/02/25 08:00 01/02/25 21:50 1,000 ML Heparin Sodium/ Dextrose 250 ml @ 13 mls/hr [id number] IV 01/03/25 21:30 01/05/25 12:50 13 MLS/HR Propofol 100 ml @ 2.946 mls/ hr Q24H IV 01/03/25 23:00 01/05/25 06:50 2.946 MLS/HR Norepinephrine Bitartrate 250 ml @ 0.938 mls/ hr Q24H IV 01/04/25 02:30 Ipratropium [place] 0.5 mg Q6HR NEB 01/04/25 12:00 01/05/25 11:59 0.5 MG Acetylcysteine 200 mg Q6HR NEB 01/04/25 12:00 01/05/25 11:59 200 MG Albuterol 2.5 mg Q6HR NEB 01/04/25 18:00 01/05/25 11:59 2.5 MG Potassium Chloride 100 ml @ 50 mls/hr Q2H IV 01/05/25 14:00 01/05/25 17:59 01/05/25 14:50 50 MLS/HR Furosemide 100 mg/ Sodium Chloride 110 ml @ 7.7 mls/hr [id number] IV 01/05/25 14:00 01/05/25 14:50 7.7 MLS/HR Examination: GENERAL:Abnormal, LUNGS:Abnormal, CVS:Abnormal, SKIN:Abnormal laboratory and microbiology Laboratory Tests 01/05/25 03:35 Test 01/05/25 03:35 Range/Units Serum Glucose 134 H 74-106 mg/dL Microbiology Date/Time Source Procedure Growth Status 12/31/24 10:15 Nose MRSA Screen - Final Complete 12/31/24 08:15 Voided Urine Urine Culture - Final Complete 12/30/24 19:54 Sputum Gram Stain - Final Complete 12/30/24 19:54 Sputum Respiratory Culture - Final Complete 12/30/24 17:41 Blood Blood Culture - Final NO GROWTH AFTER 5 DAYS OF INCUBATION. Complete Problem List/Assessment/Plan Problem List/Assessment/Plan Acute kidney injury likely ATN in the setting of shock Code blue status post resuscitation Ventilator-dependent hypoxic respiratory failure RV failure, pulm HTN pulmonary embolism S/P THROMBECTOMY IN IR DVT influenza PNA Lasix drip at 10 milligrams/hour yielded 5 L of urinary output, oxygen requirements and vent requirements improved significantly. We will reduce Lasix drip and recommend bridged back to IV push tomorrow currently on heparin drip replace electrolytes, potassium today Evaluate [employer] needs daily, no indication at this time due to diuretic response Anticoagulation critically ill, guarded prognosis Plan discussed with: Other My Orders My Orders Orders - PAIGE URIBE MD Procedure Category Date Status Time Potassium Chl PHA 01/05/25 In Process 20meq/100ml 14:00 Sodium Chl 0.9% PHA 01/05/25 In Process (So... W/Furosemide 14:00 Dietary Evaluation Review Comments: 1) Consider TF Nepro Carbsteady @ 40ml/hr along with Pro-stat 1 pk BID. 2) TPN if NPO >7 days 3) Monitor NPO status, lab values, wt trend, I/O Expected Outcomes/Goals: To meet >75% estimated needs Lab values to improve Fu 2-3 days Critical Care Time (mins): 33 PAIGE URIBE MD Jan 05, 2025 15:00
[2025-01-05] MEDS: DEXMEDETOMIDINE HCL IN D5W 100 ML IV SCH (17:15)
[2025-01-05] MEDS: hydrALAZINE HCL 20 MG/ML VL IV PRN (18:07)
[2025-01-05] MEDS: hydrALAZINE HCL 20 MG/ML VL IV ONE (21:48)
[2025-01-05] MEDS: ONDANSETRON HCL 4 MG/2 ML VIAL IV PRN (23:17)
[2025-01-06] VITALS (105 sets, daily range): BP systolic 105–182; BP diastolic 42–110; PULSE 50–88; RESP 11–32; TEMP 98.6–100.4; O2SAT 93–100
--- NOTE | 2025-01-06 05:22 | DVH ---
CHEST RADIOGRAPH Indication: pna Technique: Single frontal view of the chest was obtained Comparison: XY CHEST PORTABLE on DOS: 01/05/25 FINDINGS: Lines and Tubes: The endotracheal tube terminates 1.3 cm above the mikhail. The enteric tube courses b elow the left hemidiaphragm and the tip extends outside the field of view. There is a right central v enous catheter with its tip terminating in the superior vena cava. Lungs: Elevated right hemidiaphragm. Pulmonary interstitial prominence. No focal consolidation. Pleura: No effusion. No pneumothorax. Cardiomediastinal contours: Stable. Bones: No acute osseous abnormality. IMPRESSION: 1. Stable position of the support lines and tubes. 2. Stable pulmonary vascular congestion.
[2025-01-06 05:41] LABS: Hematocrit 27.0 % (36.0-46.0); Hemoglobin 9.3 g/dL (12.2-16.2); Mean Corpuscular Hemoglobin 30.2 pg (28.0-32.0); Mean Corpuscular Volume 88.1 fL (80.0-100.0); Nucleated Red Blood Cells % 0.1 %
[2025-01-06 06:02] LABS: INR 1.05 (0.9-1.15); Partial Thromboplastin Time 56.4 SEC (24.5-34.5); Prothrombin Time 11.1 sec (9.3-11.8)
[2025-01-06 06:08] LABS: Anion Gap 13 (5-15); BUN/Creatinine Ratio 21.0 (10.0-20.0); Calcium 9.9 mg/dL (8.7-10.4); Carbon Dioxide 29 mmol/L (20-31); Chloride 106 mmol/L (98-107); Total Protein 6.4 g/dL (5.7-8.2)
[2025-01-06 06:09] LABS: Alanine Aminotransferase 159 U/L (7-40); Alkaline Phosphatase 120 U/L (46-116); Blood Urea Nitrogen 73 mg/dL (9-23); Glucose 138 mg/dL (74-106); Potassium 3.1 mmol/L (3.5-5.1); Sodium 148 mmol/L (136-145)
[2025-01-06 06:10] LABS: Albumin 3.8 g/dL (3.2-4.8); Bilirubin, Total 0.6 mg/dL (0.2-1.0)
[2025-01-06 06:47] LABS: Base Excess 3.4 mmol/L (-2.0-3.0)
[2025-01-06] MEDS: POTASSIUM CHL 20MEQ/100ML 100 ML IV SCH (07:10)
--- NOTE | 2025-01-06 08:47 | DVHPN2 ---
Subjective Patient intubated and sedated Reviewed: Care Plan, H&P, Labs, Medications, Previous Orders Changes from previous H/P or p: No Changes General: Per HPI Objective Vitals Vital Signs Date Time Temp Pulse Resp B/P (MAP) Pulse Ox O2 Delivery O2 Flow Rate FiO2 01/06/25 08:00 77 01/06/25 07:46 98.8 24 154/58 (90) 99 209.8 01/06/25 07:40 30 01/06/25 07:40 Mechanical Ventilator+ Intake/Output Intake and Output 01/06/25 06:59 Intake Total 1285.716 ml Output Total 5100 ml Balance -3814.284 ml Intake Oral 0 ml IV Total 904.716 ml Tube Feeding 381 ml Output Urine Total 5050 ml Emesis 50 ml # Bowel Movements 1 General Appearance: moderate distress, Other (Intubated and sedated) HEENT: Atraumatic, PERRLA Lungs: Clear to auscultation, Normal air movement, Other (Mechanical ventilation) Cardiovascular: Normal S1, Normal S2 Abdomen: Normal bowel sounds, Soft, No tenderness, No hepatospenomegaly, No masses Genitourinary: No Apparent Abnormalities Musculoskeletal: Normal sensory function, Normal motor function Neuro: Other (Unable to assess) Skin: Dry, Intact Psych/Mental Status: Other (Unable to assess) Medications Current Medications Medications Dose Ordered Sig/Kimberly Route Start Time Stop Time Status Last Admin Dose Admin Midazolam HCl 50 ml @ 1 mls/hr Q24H IV 12/30/24 18:15 01/05/25 04:57 6 MLS/HR Fentanyl Citrate 250 ml @ 2.5 mls/hr Q24H IV 12/30/24 18:15 01/04/25 20:54 10 MLS/HR Nitroglycerin 0.4 mg Q5MINP PRN SL 12/30/24 19:15 Morphine Sulfate 2 mg Q30M PRN IV 12/30/24 19:15 Diagnostic Test (Pha) 1 strip IQ4HR 12/30/24 20:00 01/06/25 08:06 1 STRIP Insulin Human Regular IQ4HR SC 12/30/24 20:00 01/05/25 20:56 2 UNITS Dextrose 50 ml UD PRN IV 12/30/24 19:15 Ondansetron HCl 4 mg Q4HP PRN IV 12/30/24 19:15 01/05/25 23:17 4 MG Acetaminophen 650 mg Q6HP PRN PO 12/30/24 19:15 01/06/25 03:38 650 MG Pantoprazole Sodium 40 mg DAILY IV 01/01/25 10:00 01/05/25 10:15 40 MG Oseltamivir Phosphate 30 mg DAILY PO 01/01/25 10:00 01/06/25 09:59 01/05/25 10:15 30 MG Piperacillin Sod/ Tazobactam Sod 100 ml @ 25 mls/hr Q12H IV 01/01/25 18:00 01/06/25 05:33 25 MLS/HR Enteral Nutritional Formula 1,000 ml 30ML/HR GT 01/02/25 08:00 01/05/25 20:54 1,000 ML Heparin Sodium/ Dextrose 250 ml @ 13 mls/hr [id number] IV 01/03/25 21:30 01/05/25 12:50 13 MLS/HR Propofol 100 ml @ 2.946 mls/ hr Q24H IV 01/03/25 23:00 01/05/25 06:50 2.946 MLS/HR Norepinephrine Bitartrate 250 ml @ 0.938 mls/ hr Q24H IV 01/04/25 02:30 Ipratropium [place] 0.5 mg Q6HR NEB 01/04/25 12:00 01/06/25 06:15 0.5 MG Acetylcysteine 200 mg Q6HR NEB 01/04/25 12:00 01/06/25 06:16 200 MG Albuterol 2.5 mg Q6HR NEB 01/04/25 18:00 01/06/25 06:15 2.5 MG Furosemide 100 mg/ Sodium Chloride 110 ml @ 7.7 mls/hr [id number] IV 01/05/25 14:00 01/06/25 01:46 7.7 MLS/HR Hydralazine HCl 10 mg Q6HP PRN IV 01/05/25 17:15 01/05/25 18:07 10 MG Potassium Chloride 100 ml @ 50 mls/hr Q2H IV 01/06/25 07:00 01/06/25 14:59 01/06/25 08:06 50 MLS/HR Laboratory Results Laboratory Tests 01/06/25 05:22 Chemistry Test 01/06/25 05:22 Albumin 3.8 g/dL (3.2-4.8) Calcium Level 9.9 mg/dL (8.7-10.4) Total Protein 6.4 g/dL (5.7-8.2) Coagulation Test 01/06/25 05:22 Prothrombin Time 11.1 sec (9.3-11.8) Prothrombin Time INR 1.05 (0.9-1.15) Activated Partial Thromboplast Time 56.4 SEC (24.5-34.5) H LFT Test 01/06/25 05:22 Alanine Aminotransferase (ALT) 159 U/L (7-40) H Alkaline Phosphatase 120 U/L (46-116) H Aspartate Amino Transferase (AST) 75 U/L (13-40) H Total Bilirubin 0.6 mg/dL (0.2-1.0) Urinalysis Test 12/31/24 08:15 Urine Color Yellow (Yellow) Urine Clarity Ex.turbid (Clear) Urine pH 5.5 (5.0-9.0) Urine Specific [place] 1.016 (1.001-1.035) Urine Protein 1+ (Negative) H Urine Ketones Trace (Negative) Urine Blood 3+ /uL (Negative) H Urine Nitrite Negative (Negative) Urine Bilirubin Negative (Negative) Urine Urobilinogen Normal mg/dL (Negative) Urine Leukocyte Esterase 3+ /uL (Negative) Urine RBC 61 /hpf (0 - 4) Urine WBC Clumps Present /hpf (None Seen) Urine Microscopic WBC 59 /HPF (0-5) H Urine Squamous Epithelial Cells Few /hpf (<5) Urine Amorphous Crystals Few /hpf (None Seen) Urine Bacteria Few /hpf (None Seen) H Urine Glucose 1+ mg/dL (Normal) H Blood Gas Results Test 01/06/25 06:34 Arterial Blood pH 7.433 (7.350-7.450) FiO2 % 30.0 Microbiology Microbiology Date/Time Source Procedure Growth Status 12/31/24 10:15 Nose MRSA Screen - Final Complete 12/31/24 08:15 Voided Urine Urine Culture - Final Complete 12/30/24 19:54 Sputum Gram Stain - Final Complete 12/30/24 19:54 Sputum Respiratory Culture - Final Complete 12/30/24 17:41 Blood Blood Culture - Final NO GROWTH AFTER 5 DAYS OF INCUBATION. Complete Labs and/or images reviewed: Labs reviewed by me, Image(s) reviewed by me Assessment/Plan Assessment/Plan Impression: -cardiopulmonary arrest -acute hypoxic respiratory failure -septic shock -complicated cystitis -hypoglycemia, questionable underlying diabetes mellitus -shock liver -acute kidney injury, vasomotor nephropathy -Cholelithiasis -bilateral lower extremity DVT -cor pulmonale with bilateral pulmonary emboli Plan: Events: Patient currently off vasopressor therapy. On Precedex. Slow to awaken. Now hypertensive. -CPAP trial once appropriate -antihypertensive regimen: Amlodipine 10 mg via G-tube daily. Continue with p.r.n. labetalol and hydralazine -continue anticoagulation with heparin -Nephrology consult: Recommendations reviewed -weaned sedation and CPAP trial once appropriate -continue Zosyn -continue current ventilator settings. Titrate to keep saturation greater than 93% -PPI -repeat labs, chest x-ray, ABG in a.m. Critical care time spent with patient discussing and formulating plan of care: 40 minutes. This does not include time spent performing procedures. This medical document was created using an electronic medical record system with [employer] dictation system. Although this document has been carefully reviewed, there may still be some phonetic and typographical errors. These areas are purely typographical due to imperfections of the software programs, and do not reflect any compromise in the patient's medical care. Plan discussed with: Patient, Other (RN) My Orders Orders - AUGUST BENDER NP Procedure Category Date Status Time Dexmedetomidine Hcl PHA 01/05/25 In Process In D5w (Precedex) 17:15 Abg W/ Co-Ox RT 01/06/25 Logged 06:00 PTPTT LAB 01/07/25 Verified 05:00 Heparin Per Pharmacy [facility] 01/06/25 In Process Protocol 06:38 Cpap Trial For Am ORDERS 01/06/25 Transmitted 07:32 Date of Service: Jan 06, 2025 Billing Provider: AUGUST BENDER NP Common Visit Codes: [id number] CARE 30-74 MIN AUGUST BENDER NP Jan 06, 2025 08:47
[2025-01-06] MEDS: LABETALOL HCL 20 MG/4 ML VL IV PRN (10:31)
[2025-01-06] MEDS: InsuLIN REG 1unit/0.01ml Soln (100units/ml) SC SCH (11:55)
[2025-01-06] MEDS ORDERED: InsuLIN REG 1unit/0.01ml Soln (100units/ml) SC SCH (12:00)
[2025-01-06] MEDS: ACCU-CHEK COMFORT CURVE STRIP VI SCH (12:11)
[2025-01-06] MEDS: FUROSEMIDE INJECTION 100 MG in SODIUM CHL 0.9% 100 ML IV SCH (12:15)
--- NOTE | 2025-01-06 15:26 | DVHPN2 ---
Progress Note Date Seen: Jan 06, 2025 Medical Necessity Reason Pt with a Central, PICC or Fol: Yes The following are medically ne: Central Line, Smith Catheter Reason for smith catheter: Strict I&O Subjective Patient reports: Other (No new events) Review of Systems: Deferred Objective vital signs Vital Sign Date Time Temp Pulse Resp B/P (MAP) Pulse Ox O2 Delivery O2 Flow Rate FiO2 01/06/25 15:05 78 155/53 01/06/25 14:15 99.3 27 98 210.7 01/06/25 14:00 Mechanical Ventilator+ 30 30 Total Intake and Output 01/05/25 01/05/25 01/06/25 15:00 23:00 07:00 Intake Total 282.7 ml 620.195 ml 385.575 ml Output Total 2250 ml 2850 ml Balance 282.7 ml -1629.805 ml -2464.425 ml medications Current Medications Medications Dose Ordered Sig/Kimberly Route Start Time Stop Time Status Last Admin Dose Admin Midazolam HCl 50 ml @ 1 mls/hr Q24H IV 12/30/24 18:15 01/05/25 04:57 6 MLS/HR Fentanyl Citrate 250 ml @ 2.5 mls/hr Q24H IV 12/30/24 18:15 01/04/25 20:54 10 MLS/HR Nitroglycerin 0.4 mg Q5MINP PRN SL 12/30/24 19:15 Morphine Sulfate 2 mg Q30M PRN IV 12/30/24 19:15 Dextrose 50 ml UD PRN IV 12/30/24 19:15 Ondansetron HCl 4 mg Q4HP PRN IV 12/30/24 19:15 01/05/25 23:17 4 MG Acetaminophen 650 mg Q6HP PRN PO 12/30/24 19:15 01/06/25 03:38 650 MG Pantoprazole Sodium 40 mg DAILY IV 01/01/25 10:00 01/06/25 09:18 40 MG Piperacillin Sod/ Tazobactam Sod 100 ml @ 25 mls/hr Q12H IV 01/01/25 18:00 01/06/25 05:33 25 MLS/HR Enteral Nutritional Formula 1,000 ml 30ML/HR GT 01/02/25 08:00 01/05/25 20:54 1,000 ML Heparin Sodium/ Dextrose 250 ml @ 13 mls/hr [id number] IV 01/03/25 21:30 01/06/25 09:52 13 MLS/HR Propofol 100 ml @ 2.946 mls/ hr Q24H IV 01/03/25 23:00 01/05/25 06:50 2.946 MLS/HR Norepinephrine Bitartrate 250 ml @ 0.938 mls/ hr Q24H IV 01/04/25 02:30 Ipratropium [place] 0.5 mg Q6HR NEB 01/04/25 12:00 01/06/25 11:29 0.5 MG Acetylcysteine 200 mg Q6HR NEB 01/04/25 12:00 01/06/25 11:29 200 MG Albuterol 2.5 mg Q6HR NEB 01/04/25 18:00 01/06/25 11:29 2.5 MG Hydralazine HCl 10 mg Q6HP PRN IV 01/05/25 17:15 01/06/25 12:20 10 MG Labetalol HCl 10 mg Q2HPRN PRN IV 01/06/25 08:45 01/06/25 13:13 10 MG Amlodipine Besylate 10 mg DAILY GT 01/06/25 10:00 01/06/25 09:18 10 MG Insulin Human Regular Q6HR SC 01/06/25 12:00 Cancel Diagnostic Test (Pha) 1 strip Q6HR 01/06/25 12:00 01/06/25 12:11 1 STRIP Insulin Human Regular Q6HR SC 01/06/25 12:00 01/06/25 11:55 2 UNITS Furosemide 100 mg/ Sodium Chloride 110 ml @ 5.5 mls/hr Q20H IV 01/06/25 12:15 01/06/25 12:15 5.5 MLS/HR Examination: GENERAL:Abnormal, LUNGS:Abnormal, MSK:Abnormal, NEURO:Abnormal laboratory and microbiology Laboratory Tests 01/06/25 05:22 Test 01/06/25 05:22 Range/Units Serum Glucose 138 H 74-106 mg/dL Microbiology Date/Time Source Procedure Growth Status 12/31/24 10:15 Nose MRSA Screen - Final Complete 12/31/24 08:15 Voided Urine Urine Culture - Final Complete 12/30/24 19:54 Sputum Gram Stain - Final Complete 12/30/24 19:54 Sputum Respiratory Culture - Final Complete 12/30/24 17:41 Blood Blood Culture - Final NO GROWTH AFTER 5 DAYS OF INCUBATION. Complete Problem List/Assessment/Plan Problem List/Assessment/Plan Acute kidney injury likely ATN in the setting of shock Code blue status post resuscitation Ventilator-dependent hypoxic respiratory failure RV failure, pulm HTN pulmonary embolism S/P THROMBECTOMY IN IR DVT influenza PNA Hypokalemia Hypernatremia Recommendations Reduce Lasix drip to 5 mg/hr Nonoliguric Increase free water via G-tube for sodium Potassium replacement as needed Plan discussed with: Other My Orders My Orders Orders - ANN PHILLIPS MD Procedure Category Date Status Time Sodium Chl 0.9% PHA 01/06/25 In Process (So... W/Furosemide 12:15 Dietary Evaluation Review Comments: 1) Consider TF Nepro Carbsteady @ 40ml/hr along with Pro-stat 1 pk BID. 2) TPN if NPO >7 days 3) Monitor NPO status, lab values, wt trend, I/O Expected Outcomes/Goals: To meet >75% estimated needs Lab values to improve Fu 2-3 days ANN PHILLIPS MD Jan 06, 2025 15:26
[2025-01-06 17:50] LABS: Potassium 3.6 mmol/L (3.5-5.1)
[2025-01-06 17:57] LABS: Magnesium 2.5 mg/dL (1.6-2.6)
[2025-01-07] VITALS (110 sets, daily range): BP systolic 105–183; BP diastolic 42–129; PULSE 57–97; RESP 10–34; TEMP 97.2–99.9; O2SAT 95–100
[2025-01-07 04:36] LABS: Hematocrit 28.1 % (36.0-46.0); Hemoglobin 9.7 g/dL (12.2-16.2); Mean Corpuscular Hemoglobin 30.4 pg (28.0-32.0); Mean Corpuscular Volume 88.1 fL (80.0-100.0); Nucleated Red Blood Cells % 0.0 %
[2025-01-07 04:39] LABS: Chloride 104 mmol/L (98-107)
[2025-01-07 04:40] LABS: Anion Gap 14 (5-15)
[2025-01-07 04:41] LABS: Calcium 10.2 mg/dL (8.7-10.4)
[2025-01-07 04:46] LABS: BUN/Creatinine Ratio 22.8 (10.0-20.0)
[2025-01-07 04:47] LABS: Blood Urea Nitrogen 77 mg/dL (9-23); Carbon Dioxide 32 mmol/L (20-31); Glucose 125 mg/dL (74-106); Potassium 2.8 mmol/L (3.5-5.1); Sodium 150 mmol/L (136-145)
[2025-01-07 04:50] LABS: INR 1.07 (0.9-1.15); Partial Thromboplastin Time 55.8 SEC (24.5-34.5); Prothrombin Time 11.3 sec (9.3-11.8)
--- NOTE | 2025-01-07 05:10 | DVH ---
CHEST RADIOGRAPH Indication: pna Technique: Single frontal view of the chest was obtained COMPARISON: XY CHEST PORTABLE on DOS: 01/06/25, XY CHEST PORTABLE on DOS: 01/05/25, CT CHEST WITHOUT CO NTRAST on DOS: 01/04/25, XY CHEST PORTABLE on DOS: 01/04/25, XY CHEST PORTABLE on DOS: 01/03/25 FINDINGS: Lines and Tubes: Endotracheal tube and enteric catheter in satisfactory position. Right central veno us catheter in satisfactory position. Lungs: Congestion Pleura: No effusion. No pneumothorax. Cardiomediastinal contours: Unremarkable Bones: Unremarkable IMPRESSION: Lines and tubes in satisfactory position. No significant interval change.
[2025-01-07] MEDS: POTASSIUM CHL 20MEQ/100ML 100 ML IV SCH (05:27)
[2025-01-07 07:11] LABS: Base Excess 5.8 mmol/L (-2.0-3.0)
--- NOTE | 2025-01-07 08:20 | CONS ---
Pharmacy Clinical Information: HEPARIN DRIP, DVT PROTOCOL @03:52 APTT 55.8 - NO CHANGE 3 CONSECUTIVE APTT THERAPEUTIC => APTT EVERY 24 HRS NEXT APTT DRAW SCHEDULED @0500 PER RX PROTOCOL CONFIRMED AND READ BACK WITH [facility] RES[facility] Jan 07, 2025 08:20
--- NOTE | 2025-01-07 08:56 | DVHPN2 ---
Subjective Patient is able to follow some commands. Reviewed: Care Plan, H&P, Labs, Medications, Previous Orders Changes from previous H/P or p: No Changes General: Per HPI Objective Vitals Vital Signs Date Time Temp Pulse Resp B/P (MAP) Pulse Ox O2 Delivery O2 Flow Rate FiO2 01/07/25 08:26 81 14 154/60 (91) 100 30 01/07/25 08:15 99.5 211.1 01/07/25 08:00 Mechanical Ventilator+ Intake/Output Intake and Output 01/07/25 07:00 Intake Total 1403.92 ml Output Total 4580 ml Balance -3176.08 ml Intake Oral 0 ml IV Total 1198.92 ml Tube Feeding 205 ml Output Urine Total 4450 ml Oral Regurgitation 130 ml General Appearance: Alert, moderate distress HEENT: Atraumatic, PERRLA Lungs: Clear to auscultation, Normal air movement, Other (Mechanical ventilation) Cardiovascular: Normal S1, Normal S2 Abdomen: Normal bowel sounds, Soft, No tenderness, No hepatospenomegaly, No masses Genitourinary: No Apparent Abnormalities Musculoskeletal: Normal sensory function, Normal motor function Neuro: Other (Unable to assess) Skin: Dry, Intact Psych/Mental Status: Other (Unable to assess) Medications Current Medications Medications Dose Ordered Sig/Kimberly Route Start Time Stop Time Status Last Admin Dose Admin Midazolam HCl 50 ml @ 1 mls/hr Q24H IV 12/30/24 18:15 01/05/25 04:57 6 MLS/HR Fentanyl Citrate 250 ml @ 2.5 mls/hr Q24H IV 12/30/24 18:15 01/04/25 20:54 10 MLS/HR Nitroglycerin 0.4 mg Q5MINP PRN SL 12/30/24 19:15 Morphine Sulfate 2 mg Q30M PRN IV 12/30/24 19:15 Dextrose 50 ml UD PRN IV 12/30/24 19:15 Ondansetron HCl 4 mg Q4HP PRN IV 12/30/24 19:15 01/06/25 23:11 4 MG Acetaminophen 650 mg Q6HP PRN PO 12/30/24 19:15 01/06/25 03:38 650 MG Pantoprazole Sodium 40 mg DAILY IV 01/01/25 10:00 01/06/25 09:18 40 MG Piperacillin Sod/ Tazobactam Sod 100 ml @ 25 mls/hr Q12H IV 01/01/25 18:00 01/07/25 05:27 25 MLS/HR Enteral Nutritional Formula 1,000 ml 30ML/HR GT 01/02/25 08:00 01/06/25 17:35 1,000 ML Heparin Sodium/ Dextrose 250 ml @ 13 mls/hr [id number] IV 01/03/25 21:30 01/06/25 09:52 13 MLS/HR Propofol 100 ml @ 2.946 mls/ hr Q24H IV 01/03/25 23:00 01/05/25 06:50 2.946 MLS/HR Norepinephrine Bitartrate 250 ml @ 0.938 mls/ hr Q24H IV 01/04/25 02:30 Ipratropium [place] 0.5 mg Q6HR NEB 01/04/25 12:00 01/07/25 06:24 0.5 MG Albuterol 2.5 mg Q6HR NEB 01/04/25 18:00 01/07/25 06:24 2.5 MG Hydralazine HCl 10 mg Q6HP PRN IV 01/05/25 17:15 01/07/25 06:05 10 MG Labetalol HCl 10 mg Q2HPRN PRN IV 01/06/25 08:45 01/06/25 17:35 10 MG Amlodipine Besylate 10 mg DAILY GT 01/06/25 10:00 01/06/25 09:18 10 MG Insulin Human Regular Q6HR SC 01/06/25 12:00 Cancel Diagnostic Test (Pha) 1 strip Q6HR 01/06/25 12:00 01/07/25 05:27 1 STRIP Insulin Human Regular Q6HR SC 01/06/25 12:00 01/07/25 05:34 2 UNITS Furosemide 100 mg/ Sodium Chloride 110 ml @ 5.5 mls/hr Q20H IV 01/06/25 12:15 01/06/25 12:15 5.5 MLS/HR Potassium Chloride 100 ml @ 50 mls/hr Q2H IV 01/07/25 05:00 01/07/25 08:59 01/07/25 07:32 50 MLS/HR Laboratory Results Laboratory Tests 01/07/25 03:52 Chemistry Test 01/06/25 17:22 01/07/25 03:52 Magnesium Level 2.5 mg/dL (1.6-2.6) Calcium Level 10.2 mg/dL (8.7-10.4) Coagulation Test 01/07/25 03:52 Prothrombin Time 11.3 sec (9.3-11.8) Prothrombin Time INR 1.07 (0.9-1.15) Activated Partial Thromboplast Time 55.8 SEC (24.5-34.5) H Urinalysis Test 12/31/24 08:15 Urine Color Yellow (Yellow) Urine Clarity Ex.turbid (Clear) Urine pH 5.5 (5.0-9.0) Urine Specific [place] 1.016 (1.001-1.035) Urine Protein 1+ (Negative) H Urine Ketones Trace (Negative) Urine Blood 3+ /uL (Negative) H Urine Nitrite Negative (Negative) Urine Bilirubin Negative (Negative) Urine Urobilinogen Normal mg/dL (Negative) Urine Leukocyte Esterase 3+ /uL (Negative) Urine RBC 61 /hpf (0 - 4) Urine WBC Clumps Present /hpf (None Seen) Urine Microscopic WBC 59 /HPF (0-5) H Urine Squamous Epithelial Cells Few /hpf (<5) Urine Amorphous Crystals Few /hpf (None Seen) Urine Bacteria Few /hpf (None Seen) H Urine Glucose 1+ mg/dL (Normal) H Blood Gas Results Test 01/07/25 06:54 Arterial Blood pH 7.587 (7.350-7.450) FiO2 % 30.0 Microbiology Microbiology Date/Time Source Procedure Growth Status 12/31/24 10:15 Nose MRSA Screen - Final Complete 12/31/24 08:15 Voided Urine Urine Culture - Final Complete 12/30/24 19:54 Sputum Gram Stain - Final Complete 12/30/24 19:54 Sputum Respiratory Culture - Final Complete 12/30/24 17:41 Blood Blood Culture - Final NO GROWTH AFTER 5 DAYS OF INCUBATION. Complete Labs and/or images reviewed: Labs reviewed by me, Image(s) reviewed by me Assessment/Plan Assessment/Plan Impression: -cardiopulmonary arrest -acute hypoxic respiratory failure -septic shock -complicated cystitis -hypoglycemia, questionable underlying diabetes mellitus -shock liver -acute kidney injury, vasomotor nephropathy -Cholelithiasis -bilateral lower extremity DVT -cor pulmonale with bilateral pulmonary emboli Plan: Events: Patient currently on spontaneous breathing trial. Excellent Urine output. Patient hypokalemic. Patient also hypernatremic -recommend stopping diuresis at this time with Lasix drip -continue current antihypertensive regimen -continue anticoagulation with heparin -Nephrology consult: Recommendations reviewed -continue Zosyn -continue current ventilator settings. Titrate to keep saturation greater than 93% -PPI -repeat labs, chest x-ray, ABG in a.m. Critical care time spent with patient discussing and formulating plan of care: 40 minutes. This does not include time spent performing procedures. This medical document was created using an electronic medical record system with [employer] dictation system. Although this document has been carefully reviewed, there may still be some phonetic and typographical errors. These areas are purely typographical due to imperfections of the software programs, and do not reflect any compromise in the patient's medical care. Plan discussed with: Patient, Other (RN) My Orders Orders - AUGUST BENDER NP Procedure Category Date Status Time Insulin R (Human) PHA 01/06/25 In Process (Insulin R) 12:00 Glucose Blood PHA 01/06/25 In Process (Accu-Chek Comfort 12:00 Heparin Per Pharmacy BEBA 01/07/25 In Process Protocol 05:12 Abg W/ Co-Ox RT 01/07/25 Logged 06:00 PTPTT LAB 01/08/25 Verified 05:00 Date of Service: Jan 07, 2025 Billing Provider: AUGUST BENDER NP Common Visit Codes: [id number] CARE 30-74 MIN AUGUST BENDER NP Jan 07, 2025 08:56
[2025-01-07 10:14] LABS: Base Excess 8.0 mmol/L (-2.0-3.0)
[2025-01-07] MEDS: EPINEPHrine HCL 0.5 ML NEB ONE (12:13)
[2025-01-07] MEDS: EPINEPHrine HCL 0.5 ML NEB NEB ONE (13:05)
[2025-01-07 13:52] LABS: Base Excess 6.6 mmol/L (-2.0-3.0)
[2025-01-07] MEDS: POTASSIUM CHL 20MEQ/100ML 100 ML IV ONE (14:47)
--- NOTE | 2025-01-07 15:13 | MEDREC ---
[facility] Intervention Section I [facility] Intervention: Deescalate AB based on CS (Pt received 9 days of abx, afebrile x3 days, WBC WNL x4 days, and no pseudomonas in cultures. If abx still indicated, may consider de-escalating to ampicillin-sulbactam 3G IV Q12H to account for renal function, if clinically appropriate.) JAZZY FRAZIER [facility] RESIDENT Jan 07, 2025 15:13
[2025-01-07] MEDS: BUMETANIDE 2.5mg/10ml (0.25 mg/ml) INJ IV SCH (17:23)
--- NOTE | 2025-01-07 18:45 | DVHPN2 ---
Progress Note Date Seen: Jan 07, 2025 Medical Necessity Reason Pt with a Central, PICC or Fol: Yes The following are medically ne: Central Line, Smith Catheter Reason for smith catheter: Strict I&O Subjective Patient reports: Other Review of Systems: HEENT:Abnormal, MSK:Abnormal, NEURO:Abnormal Objective vital signs Vital Sign Date Time Temp Pulse Resp B/P (MAP) Pulse Ox O2 Delivery O2 Flow Rate FiO2 01/07/25 17:53 15 100 Bi-Pap+ 30 30 01/07/25 17:53 80 01/07/25 17:45 98.2 135/64 (87) 208.8 01/07/25 12:00 6 Total Intake and Output 01/06/25 01/06/25 01/07/25 15:00 23:00 07:00 Intake Total 634.0 ml 278.0 ml 491.92 ml Output Total 2600 ml 1980 ml Balance 634.0 ml -2322.0 ml -1488.08 ml medications Current Medications Medications Dose Ordered Sig/Kimberly Route Start Time Stop Time Status Last Admin Dose Admin Midazolam HCl 50 ml @ 1 mls/hr Q24H IV 12/30/24 18:15 01/05/25 04:57 6 MLS/HR Fentanyl Citrate 250 ml @ 2.5 mls/hr Q24H IV 12/30/24 18:15 01/04/25 20:54 10 MLS/HR Nitroglycerin 0.4 mg Q5MINP PRN SL 12/30/24 19:15 Morphine Sulfate 2 mg Q30M PRN IV 12/30/24 19:15 Dextrose 50 ml UD PRN IV 12/30/24 19:15 Ondansetron HCl 4 mg Q4HP PRN IV 12/30/24 19:15 01/06/25 23:11 4 MG Acetaminophen 650 mg Q6HP PRN PO 12/30/24 19:15 01/06/25 03:38 650 MG Pantoprazole Sodium 40 mg DAILY IV 01/01/25 10:00 01/07/25 09:08 40 MG Piperacillin Sod/ Tazobactam Sod 100 ml @ 25 mls/hr Q12H IV 01/01/25 18:00 01/07/25 17:38 25 MLS/HR Enteral Nutritional Formula 1,000 ml 30ML/HR GT 01/02/25 08:00 01/06/25 17:35 1,000 ML Heparin Sodium/ Dextrose 250 ml @ 13 mls/hr [id number] IV 01/03/25 21:30 01/06/25 09:52 13 MLS/HR Propofol 100 ml @ 2.946 mls/ hr Q24H IV 01/03/25 23:00 01/05/25 06:50 2.946 MLS/HR Norepinephrine Bitartrate 250 ml @ 0.938 mls/ hr Q24H IV 01/04/25 02:30 Ipratropium [place] 0.5 mg Q6HR NEB 01/04/25 12:00 01/07/25 18:24 0.5 MG Albuterol 2.5 mg Q6HR NEB 01/04/25 18:00 01/07/25 18:24 2.5 MG Hydralazine HCl 10 mg Q6HP PRN IV 01/05/25 17:15 01/07/25 13:32 10 MG Labetalol HCl 10 mg Q2HPRN PRN IV 01/06/25 08:45 01/07/25 11:25 10 MG Amlodipine Besylate 10 mg DAILY GT 01/06/25 10:00 01/07/25 09:09 10 MG Insulin Human Regular Q6HR SC 01/06/25 12:00 Cancel Diagnostic Test (Pha) 1 strip Q6HR 01/06/25 12:00 01/07/25 17:50 1 STRIP Insulin Human Regular Q6HR SC 01/06/25 12:00 01/07/25 17:39 2 UNITS Bumetanide 2 mg BIDD IV 01/07/25 18:00 01/07/25 17:23 2 MG Examination: GENERAL:Abnormal, MSK:Abnormal, SKIN:Abnormal, NEURO:Abnormal laboratory and microbiology Laboratory Tests 01/07/25 03:52 Test 01/07/25 03:52 Range/Units Serum Glucose 125 H 74-106 mg/dL Microbiology Date/Time Source Procedure Growth Status 12/31/24 10:15 Nose MRSA Screen - Final Complete 12/31/24 08:15 Voided Urine Urine Culture - Final Complete 12/30/24 19:54 Sputum Gram Stain - Final Complete 12/30/24 19:54 Sputum Respiratory Culture - Final Complete 8/4/25 17:41 Blood Blood Culture - Final NO GROWTH AFTER 5 DAYS OF INCUBATION. Complete Problem List/Assessment/Plan Problem List/Assessment/Plan Acute kidney injury likely ATN in the setting of shock Code blue status post resuscitation Ventilator-dependent hypoxic respiratory failure RV failure, pulm HTN pulmonary embolism S/P THROMBECTOMY IN IR DVT influenza PNA Hypokalemia Hypernatremia Recommendations dc lasix drip bumex ivp 2mg bid extubated on bipap Potassium replacement as needed Plan discussed with: Other My Orders My Orders Orders - ANN PHILLIPS MD Procedure Category Date Status Time Bumetanide Injection PHA 01/07/25 In Process (Bumex Injection) 18:00 Dietary Evaluation Review Comments: 1) Consider TF Nepro Carbsteady @ 40ml/hr along with Pro-stat 1 pk BID. 2) TPN if NPO >7 days 3) Monitor NPO status, lab values, wt trend, I/O Expected Outcomes/Goals: To meet >75% estimated needs Lab values to improve Fu 2-3 days ANN PHILLIPS MD Jan 07, 2025 18:45
[2025-01-08] VITALS (120 sets, daily range): BP systolic 52–269; BP diastolic 15–130; PULSE 80–102; RESP 11–51; TEMP 80.1–100.2; O2SAT 85–100
[2025-01-08] MEDS: ALBUMIN 25% 50 ML IV ONE (05:05)
--- NOTE | 2025-01-08 05:14 | DVH ---
CHEST RADIOGRAPH Indication: pna Technique: Single frontal view of the chest was obtained COMPARISON: XY CHEST PORTABLE on DOS: 01/07/25, XY CHEST PORTABLE on DOS: 01/06/25, XY CHEST PORTABLE o n DOS: 01/05/25, CT CHEST WITHOUT CONTRAST on DOS: 01/04/25, XY CHEST PORTABLE on DOS: 01/04/25 FINDINGS: Lines and Tubes: Right central venous catheter in satisfactory position. Lungs: Mild congestion Pleura: No effusion. No pneumothorax. Cardiomediastinal contours: Unremarkable Bones: Unremarkable IMPRESSION: Mild congestion
[2025-01-08 05:27] LABS: Hematocrit 24.2 % (36.0-46.0); Hemoglobin 8.0 g/dL (12.2-16.2); Mean Corpuscular Hemoglobin 29.9 pg (28.0-32.0); Mean Corpuscular Volume 89.7 fL (80.0-100.0); Nucleated Red Blood Cells % 0.1 %
[2025-01-08 06:46] LABS: Chloride 105 mmol/L (98-107); Potassium 4.2 mmol/L (3.5-5.1)
[2025-01-08 06:47] LABS: Anion Gap 15 (5-15); Carbon Dioxide 29 mmol/L (20-31)
[2025-01-08 06:48] LABS: Calcium 9.8 mg/dL (8.7-10.4)
[2025-01-08 06:50] LABS: Sodium 149 mmol/L (136-145)
[2025-01-08 06:52] LABS: BUN/Creatinine Ratio 21.2 (10.0-20.0)
[2025-01-08 07:23] LABS: Glucose 195 mg/dL (74-106)
[2025-01-08 07:24] LABS: Blood Urea Nitrogen 89 mg/dL (9-23)
--- NOTE | 2025-01-08 09:44 | DVHPN2 ---
Subjective Patient is able to follow some commands. Reviewed: Care Plan, H&P, Labs, Medications, Previous Orders Changes from previous H/P or p: No Changes General: Per HPI Objective Vitals Vital Signs Date Time Temp Pulse Resp B/P (MAP) Pulse Ox O2 Delivery O2 Flow Rate FiO2 01/08/25 09:31 92/46 01/08/25 08:15 100.2 93 31 100 212.4 01/08/25 08:00 Nasal Cannula* 2 N/A Bi-Pap+ Intake/Output Intake and Output 01/08/25 07:00 Intake Total 675.941 ml Output Total 1750 ml Balance -1074.059 ml IV Total 645.941 ml Tube Feeding 30 ml Output Urine Total 1750 ml General Appearance: Alert, mild distress HEENT: Atraumatic, PERRLA Lungs: Clear to auscultation, Normal air movement, Other (Mechanical ventilation) Cardiovascular: Normal S1, Normal S2 Abdomen: Normal bowel sounds, Soft, No tenderness, No hepatospenomegaly, No masses Genitourinary: No Apparent Abnormalities Musculoskeletal: Normal sensory function, Normal motor function Neuro: Other (Unable to assess) Skin: Dry, Intact Psych/Mental Status: Other (Unable to assess) Medications Current Medications Medications Dose Ordered Sig/Kimberly Route Start Time Stop Time Status Last Admin Dose Admin Midazolam HCl 50 ml @ 1 mls/hr Q24H IV 12/30/24 18:15 01/05/25 04:57 6 MLS/HR Fentanyl Citrate 250 ml @ 2.5 mls/hr Q24H IV 12/30/24 18:15 01/04/25 20:54 10 MLS/HR Nitroglycerin 0.4 mg Q5MINP PRN SL 12/30/24 19:15 Morphine Sulfate 2 mg Q30M PRN IV 12/30/24 19:15 Dextrose 50 ml UD PRN IV 12/30/24 19:15 Ondansetron HCl 4 mg Q4HP PRN IV 12/30/24 19:15 01/06/25 23:11 4 MG Acetaminophen 650 mg Q6HP PRN PO 12/30/24 19:15 01/06/25 03:38 650 MG Pantoprazole Sodium 40 mg DAILY IV 01/01/25 10:00 01/08/25 09:30 40 MG Piperacillin Sod/ Tazobactam Sod 100 ml @ 25 mls/hr Q12H IV 01/01/25 18:00 01/08/25 06:09 25 MLS/HR Enteral Nutritional Formula 1,000 ml 30ML/HR GT 01/02/25 08:00 01/06/25 17:35 1,000 ML Heparin Sodium/ Dextrose 250 ml @ 13 mls/hr [id number] IV 01/03/25 21:30 01/07/25 19:21 13 MLS/HR Propofol 100 ml @ 2.946 mls/ hr Q24H IV 01/03/25 23:00 01/05/25 06:50 2.946 MLS/HR Norepinephrine Bitartrate 250 ml @ 0.938 mls/ hr Q24H IV 01/04/25 02:30 01/08/25 04:30 3.75 MLS/HR Ipratropium [place] 0.5 mg Q6HR NEB 01/04/25 12:00 01/08/25 06:20 0.5 MG Albuterol 2.5 mg Q6HR NEB 01/04/25 18:00 01/08/25 06:20 2.5 MG Hydralazine HCl 10 mg Q6HP PRN IV 01/05/25 17:15 01/07/25 13:32 10 MG Labetalol HCl 10 mg Q2HPRN PRN IV 01/06/25 08:45 01/07/25 11:25 10 MG Amlodipine Besylate 10 mg DAILY GT 01/06/25 10:00 01/07/25 09:09 10 MG Insulin Human Regular Q6HR SC 01/06/25 12:00 Cancel Diagnostic Test (Pha) 1 strip Q6HR 01/06/25 12:00 01/08/25 06:03 1 STRIP Insulin Human Regular Q6HR SC 01/06/25 12:00 01/08/25 06:10 3 UNITS Bumetanide 2 mg BIDD IV 01/07/25 18:00 01/08/25 06:08 2 MG Laboratory Results Laboratory Tests 01/08/25 04:45 Chemistry Test 01/08/25 04:45 Calcium Level 9.8 mg/dL (8.7-10.4) Coagulation Test 01/08/25 08:54 Prothrombin Time Pending Prothrombin Time INR Pending Activated Partial Thromboplast Time Pending Urinalysis Test 12/31/24 08:15 Urine Color Yellow (Yellow) Urine Clarity Ex.turbid (Clear) Urine pH 5.5 (5.0-9.0) Urine Specific [place] 1.016 (1.001-1.035) Urine Protein 1+ (Negative) H Urine Ketones Trace (Negative) Urine Blood 3+ /uL (Negative) H Urine Nitrite Negative (Negative) Urine Bilirubin Negative (Negative) Urine Urobilinogen Normal mg/dL (Negative) Urine Leukocyte Esterase 3+ /uL (Negative) Urine RBC 61 /hpf (0 - 4) Urine WBC Clumps Present /hpf (None Seen) Urine Microscopic WBC 59 /HPF (0-5) H Urine Squamous Epithelial Cells Few /hpf (<5) Urine Amorphous Crystals Few /hpf (None Seen) Urine Bacteria Few /hpf (None Seen) H Urine Glucose 1+ mg/dL (Normal) H Blood Gas Results Test 01/07/25 10:06 01/07/25 13:45 Arterial Blood pH 7.466 (7.350-7.450) 7.429 (7.350-7.450) FiO2 % 30.0 30.0 Microbiology Microbiology Date/Time Source Procedure Growth Status 12/31/24 10:15 Nose MRSA Screen - Final Complete 12/31/24 08:15 Voided Urine Urine Culture - Final Complete 12/30/24 19:54 Sputum Gram Stain - Final Complete 12/30/24 19:54 Sputum Respiratory Culture - Final Complete 12/30/24 17:41 Blood Blood Culture - Final NO GROWTH AFTER 5 DAYS OF INCUBATION. Complete Labs and/or images reviewed: Labs reviewed by me, Image(s) reviewed by me Assessment/Plan Assessment/Plan Impression: -cardiopulmonary arrest -acute hypoxic respiratory failure -septic shock -complicated cystitis -hypoglycemia, questionable underlying diabetes mellitus -shock liver -acute kidney injury, vasomotor nephropathy -Cholelithiasis -bilateral lower extremity DVT -cor pulmonale with bilateral pulmonary emboli Plan: Events: Patient now on vasopressor therapy. Respiratory status stable off of mechanical ventilation. CVP noted to be two. Patient presents to be hypovolemic. Stop diuresis at this time. Volume resuscitation. Swallow evaluation. -hold diuretics -continue norepinephrine to keep map greater than 65 mm of mercury -continue anticoagulation with heparin -Nephrology consult: Recommendations reviewed -continue Zosyn -continue current ventilator settings. Titrate to keep saturation greater than 93% -PPI -repeat labs, chest x-ray, ABG in a.m. Critical care time spent with patient discussing and formulating plan of care: 40 minutes. This does not include time spent performing procedures. This medical document was created using an electronic medical record system with [employer] dictation system. Although this document has been carefully reviewed, there may still be some phonetic and typographical errors. These areas are purely typographical due to imperfections of the software programs, and do not reflect any compromise in the patient's medical care. Plan discussed with: Patient, Other (RN) My Orders Orders - AUGUST BENDER NP Procedure Category Date Status Time Abg W/ Co-Ox RT 01/07/25 Logged 10:00 Extubate BEBA 01/07/25 In Process 10:14 Oxygen Via Cool Mist RT 01/07/25 Transmitted Mask 10:14 BIPAP RT 01/07/25 Logged 12:31 Abg W/ Co-Ox RT 01/07/25 Logged 13:30 Date of Service: Jan 08, 2025 Billing Provider: AUGUST BENDER NP Common Visit Codes: [id number] CARE 30-74 MIN AUGUST BENDER NP Jan 08, 2025 09:44
[2025-01-08 09:56] LABS: INR 1.19 (0.9-1.15); Prothrombin Time 12.4 sec (9.3-11.8)
[2025-01-08 09:57] LABS: Partial Thromboplastin Time 121.3 SEC (24.5-34.5)
--- NOTE | 2025-01-08 10:07 | CONS ---
Pharmacy Clinical Information: HEPARIN DRIP, DVT PROTOCOL HOLD HEPARIN DRIP FOR 1 HR STARTING @1005, RESTART HEPARIN DRIP @1105 AT RATE 1000 UNITS/HR @0854 APTT 121.3 NEXT APTT DRAW SCHEDULED @1705 PER RX PROTOCOL CONFIRMED AND READ BACK WITH JAZZY CACERES [facility] RESIDENT Jan 08, 2025 10:07
[2025-01-08] MEDS: SODIUM CHLORIDE 0.9% 500 ML IV ONE (10:30)
[2025-01-08] MEDS: HEPARIN DRIP/D5W 100UNITS/ML 250 ML IV SCH (11:36)
[2025-01-08] MEDS: SODIUM CHLORIDE 0.9% 1,000 ML IV SCH ×2 (12:00→17:00)
[2025-01-08] MEDS: PHENYLEPHRINE IV 250 ML IV ONE (13:26)
[2025-01-08] MEDS: ROCURONIUM 10MG/ML 10ML VIAL IV ONE ×2 (13:31)
[2025-01-08] MEDS: ETOMIDATE (2MG/ML) 20ML VIAL IV ONE ×2 (13:31)
[2025-01-08] MEDS: MIDAZOLAM HCL 2MG/2ML 2ml VIAL (1mg/ml) IV ONE (13:38)
[2025-01-08] MEDS: MIDAZOLAM HCL 2MG/2ML 2ml VIAL (1mg/ml) ONE (13:41)
[2025-01-08] MEDS: fentaNYL Drip 2500mCg/250mlNS 250 ML IV ONE (13:42)
[2025-01-08] MEDS: MIDAZOLAM DRIP 50 mg/50mL 50 ML IV ONE (13:42)
[2025-01-08] MEDS: PHENYLEPHRINE INJ 80 MG in SODIUM CHL 0.9% 242 ML IV SCH (13:45)
[2025-01-08] MEDS: NOREPINEPHRINE BITARTRATE 32 MG in SODIUM CHL 0.9% 218 ML IV SCH (13:45)
[2025-01-08] MEDS: MIDAZOLAM DRIP 50 mg/50mL 50 ML IV SCH (13:45)
[2025-01-08] MEDS: fentaNYL Drip 2500mCg/250mlNS 250 ML IV SCH (13:45)
--- NOTE | 2025-01-08 14:13 | CODING ---
Date of Service: Jan 08, 2025 Billing Provider: AUGUST BENDER NP Common Visit Codes: [id number] CARE-EACH +30MIN AUGUST BENDER NP Jan 08, 2025 14:13
[2025-01-08] MEDS ORDERED: VASOPRESSIN 20 UNITS in SODIUM CHL 0.9% 99 ML IV SCH (14:15)
--- NOTE | 2025-01-08 14:16 | DVHNC2 ---
Intubation Indication: Respiratory Insufficiency, Altered Mental Status, Airway Protection Prep: Preoxygenation Pretreated with: Sedation (Etomidate 10 mg IV push) Intubation size: cm (8.0) Informed consent obtained: No Risks/benefits/alt described: Yes Notes Patient intubated using glide scope. Vocal cords visualized without any difficulty passing 8.0 ET tube, with placement at 22 cm at the lip. Chest x-ray reviewed. Appropriate placement. Date of Service: Jan 08, 2025 Billing Provider: AUGUST BENDER NP Common Visit Codes: PROCEDURE ONLY Procedure Codes: [id number] AUGUST BENDER NP Jan 08, 2025 14:16
--- NOTE | 2025-01-08 14:21 | DVH ---
INDICATION: S/P INTUBATION TECHNIQUE: Frontal view of the chest. COMPARISON: XY CHEST PORTABLE on DOS: 01/08/25, XY CHEST PORTABLE on DOS: 01/07/25, XY CHEST PORTABLE o n DOS: 01/06/25, XY CHEST PORTABLE on DOS: 01/05/25, CT CHEST WITHOUT CONTRAST on DOS: 01/04/25 FINDINGS: Endotracheal tube 5 cm from the mikhail. Right central venous catheter tip in the cavoatrial junction. . The heart and mediastinal contours are grossly unremarkable. There is no evidence of pleural disea se. The lungs are clear. The bony structures of the chest are intact without fracture. IMPRESSION: 1. No evidence of acute disease.
[2025-01-08] MEDS: SODIUM CHLORIDE 0.9% 1,000 ML IV ONE ×2 (14:42→14:45)
[2025-01-08 15:07] LABS: Base Excess -9.1 mmol/L (-2.0-3.0)
--- NOTE | 2025-01-08 15:28 | DVHPN2 ---
Progress Note Date Seen: Jan 08, 2025 Medical Necessity Reason Pt with a Central, PICC or Fol: Yes The following are medically ne: Central Line, Smith Catheter Reason for smith catheter: Strict I&O Subjective Patient reports: Other (events noted) Review of Systems: Deferred Objective vital signs Vital Sign Date Time Temp Pulse Resp B/P (MAP) Pulse Ox O2 Delivery O2 Flow Rate FiO2 01/08/25 13:34 96 29 80/47 (58) 99 50 01/08/25 12:16 Facial BiPAP Mask 01/08/25 12:15 99.5 211.1 01/08/25 12:02 2.0 Total Intake and Output 01/07/25 01/07/25 01/08/25 15:00 23:00 07:00 Intake Total 213.0 ml 208 ml 254.941 ml Output Total 1225 ml 525 ml Balance 213.0 ml -1017 ml -270.059 ml medications Current Medications Medications Dose Ordered Sig/Kimberly Route Start Time Stop Time Status Last Admin Dose Admin Nitroglycerin 0.4 mg Q5MINP PRN SL 12/30/24 19:15 Morphine Sulfate 2 mg Q30M PRN IV 12/30/24 19:15 Dextrose 50 ml UD PRN IV 12/30/24 19:15 Ondansetron HCl 4 mg Q4HP PRN IV 12/30/24 19:15 01/06/25 23:11 4 MG Acetaminophen 650 mg Q6HP PRN PO 12/30/24 19:15 01/06/25 03:38 650 MG Pantoprazole Sodium 40 mg DAILY IV 01/01/25 10:00 01/08/25 09:30 40 MG Piperacillin Sod/ Tazobactam Sod 100 ml @ 25 mls/hr Q12H IV 01/01/25 18:00 01/08/25 06:09 25 MLS/HR Norepinephrine Bitartrate 250 ml @ 0.938 mls/ hr Q24H IV 01/04/25 02:30 01/08/25 12:43 32.813 MLS/HR Ipratropium [place] 0.5 mg Q6HR NEB 01/04/25 12:00 01/08/25 12:02 0.5 MG Albuterol 2.5 mg Q6HR NEB 01/04/25 18:00 01/08/25 12:02 2.5 MG Hydralazine HCl 10 mg Q6HP PRN IV 01/05/25 17:15 01/07/25 13:32 10 MG Labetalol HCl 10 mg Q2HPRN PRN IV 01/06/25 08:45 01/07/25 11:25 10 MG Insulin Human Regular Q6HR SC 01/06/25 12:00 Cancel Diagnostic Test (Pha) 1 strip Q6HR 01/06/25 12:00 01/08/25 11:59 1 STRIP Insulin Human Regular Q6HR SC 01/06/25 12:00 01/08/25 11:59 3 UNITS Sodium Chloride 1,000 ml @ 100 mls/hr Q10H IV 01/08/25 09:45 01/08/25 12:00 100 MLS/HR Heparin Sodium/ Dextrose 250 ml @ 10 mls/hr Q24H IV 01/08/25 11:05 01/08/25 11:36 10 MLS/HR Phenylephrine HCl 80 mg/Sodium Chloride 250 ml @ 7.5 mls/hr Q24H IV 01/08/25 13:15 01/08/25 13:45 33.75 MLS/HR Norepinephrine Bitartrate 32 mg/ Sodium Chloride 250 ml @ 0.938 mls/ hr Q24H IV 01/08/25 13:15 01/08/25 13:45 14.063 MLS/HR Midazolam HCl 50 ml @ 1 mls/hr Q24H IV 01/08/25 13:45 Fentanyl Citrate 250 ml @ 2.5 mls/hr Q24H IV 01/08/25 13:45 Vasopressin 20 units/Sodium Chloride 100 ml @ 9 mls/hr Q11H7M IV 01/08/25 14:00 Vasopressin 20 units/Sodium Chloride 100 ml @ 9 mls/hr Q11H7M IV 01/08/25 14:15 Sodium Chloride 1,000 ml @ 100 mls/hr Q10H IV 01/08/25 14:45 Examination: GENERAL:Abnormal, LUNGS:Abnormal, MSK:Abnormal (edema b/l 2+), NEURO:Abnormal laboratory and microbiology Laboratory Tests 01/08/25 04:45 Test 01/08/25 04:45 Range/Units Serum Glucose 195 H 74-106 mg/dL Microbiology Date/Time Source Procedure Growth Status 12/31/24 10:15 Nose MRSA Screen - Final Complete 12/31/24 08:15 Voided Urine Urine Culture - Final Complete 12/30/24 19:54 Sputum Gram Stain - Final Complete 12/30/24 19:54 Sputum Respiratory Culture - Final Complete 12/30/24 17:41 Blood Blood Culture - Final NO GROWTH AFTER 5 DAYS OF INCUBATION. Complete Problem List/Assessment/Plan Problem List/Assessment/Plan Acute kidney injury likely ATN in the setting of shock Code blue status post resuscitation Ventilator-dependent hypoxic respiratory failure RV failure, pulm HTN pulmonary embolism S/P THROMBECTOMY IN IR DVT influenza PNA Hypokalemia Hypernatremia Recommendations reintubated as RR in 50 s on vasopressors oligoanuric Ns iv 2 L bolus and then NS iv at 100cc/hr will consider CANOPY STRINGER in next 24 hrs given low uop and for solute clearance cvp low Plan discussed with: Other My Orders My Orders Orders - ANN PHILLIPS MD Procedure Category Date Status Time Sodium Chloride 0.9% PHA 01/08/25 In Process 14:45 Sodium Chloride 0.9% PHA 01/08/25 In Process 14:45 Dietary Evaluation Review Comments: 1) Consider TF Nepro Carbsteady @ 40ml/hr along with Pro-stat 1 pk BID. 2) TPN if NPO >7 days 3) Monitor NPO status, lab values, wt trend, I/O Expected Outcomes/Goals: To meet >75% estimated needs Lab values to improve Fu 2-3 days Critical Care Time (mins): 36 ANN PHILLIPS MD Jan 08, 2025 15:28
[2025-01-08 15:30] LABS: Hematocrit 19.5 % (36.0-46.0)
[2025-01-08 15:37] LABS: Hemoglobin 6.2 g/dL (12.2-16.2)
[2025-01-08] MEDS: SODIUM BICARB 8.4% 50Meq/50ml SYR Vial IV ONE (16:03)
[2025-01-08] MEDS: VASOPRESSIN 20 UNITS in SODIUM CHL 0.9% 99 ML IV SCH (16:59)
[2025-01-08] MEDS: DEXTROSE (50%) 50ML SYRG IV PRN (18:13)
[2025-01-08 19:06] LABS: Base Excess -13.0 mmol/L (-2.0-3.0)
[2025-01-08] MEDS: ALBUMIN 5% 250 ML IV ONE ×2 (20:06→21:39)
[2025-01-08] MEDS: SODIUM BICARB 50mEq/50ml Vial 50 ML in SOD CHL 0.45% 1,000 ML IV SCH (21:08)
[2025-01-09] VITALS (110 sets, daily range): BP systolic 48–182; BP diastolic 15–136; PULSE 82–156; RESP 16–39; TEMP 94.5–99.7; O2SAT 38–100
[2025-01-09] MEDS: EPINEPHrine HCL 250 ML IV SCH (00:04)
[2025-01-09 00:58] LABS: Base Excess -18.6 mmol/L (-2.0-3.0)
[2025-01-09] MEDS: SODIUM CHLORIDE 0.9% 500 ML IV ONE (01:22)
[2025-01-09] MEDS: SODIUM BICARB 8.4% 50Meq/50ml SYR Vial IV ONE ×3 (01:42→09:45)
[2025-01-09] MEDS: SODIUM BICARB 50mEq/50ml Vial 150 ML in SOD CHL 0.45% 1,000 ML IV SCH ×2 (01:43→04:57)
[2025-01-09 02:18] LABS: Hemoglobin 8.1 g/dL (12.2-16.2)
[2025-01-09 02:20] LABS: Hematocrit 27.7 % (36.0-46.0)
[2025-01-09] MEDS: ALBUMIN 5% 250 ML IV ONE (04:57)
[2025-01-09] MEDS: DOPamine 1600MCG/ML D5W 250 ML IV SCH (05:04)
[2025-01-09 05:49] LABS: Hematocrit 23.7 % (36.0-46.0); Mean Corpuscular Hemoglobin 30.2 pg (28.0-32.0); Mean Corpuscular Volume 102.7 fL (80.0-100.0)
[2025-01-09 05:57] LABS: Hemoglobin 7.0 g/dL (12.2-16.2)
--- NOTE | 2025-01-09 06:01 | DVH ---
CHEST RADIOGRAPH Indication: line placement Technique: Single frontal view of the chest was obtained COMPARISON: XY POST PROCEDURE CHEST on DOS: 01/08/25, XY CHEST PORTABLE on DOS: 01/08/25, XY CHEST PORT ABLE on DOS: 01/07/25, XY CHEST PORTABLE on DOS: 01/06/25, XY CHEST PORTABLE on DOS: 01/05/25 FINDINGS: Lines and Tubes: Interval advancement of the endotracheal tube such that the tip now projects approxi mately 2.6 cm above the level of the mikhail. Right internal jugular central venous catheter unchanged . Lungs: Clear Pleura: No effusion. No pneumothorax. Cardiomediastinal contours: Unremarkable Bones: Unremarkable IMPRESSION: 1. No acute disease. 2. Interval advancement of endotracheal tube as above. Right IJ central venous catheter unchanged.
[2025-01-09 06:13] LABS: Anion Gap 34 (5-15)
[2025-01-09 06:19] LABS: BUN/Creatinine Ratio 17.6 (10.0-20.0); Glucose 87 mg/dL (74-106)
[2025-01-09 06:24] LABS: Calcium 7.8 mg/dL (8.7-10.4); Carbon Dioxide 12 mmol/L (20-31); Chloride 110 mmol/L (98-107); Magnesium 3.1 mg/dL (1.6-2.6); Sodium 156 mmol/L (136-145)
[2025-01-09 06:26] LABS: Blood Urea Nitrogen 97 mg/dL (9-23); Potassium 7.4 mmol/L (3.5-5.1)
[2025-01-09] MEDS: SODIUM BICARB 8.4% 50Meq/50ml SYR INJ IV ONE ×2 (06:30→20:30)
[2025-01-09 07:04] LABS: Total Cells Counted 100.0 (100)
[2025-01-09 07:16] LABS: Base Excess -20.9 mmol/L (-2.0-3.0)
[2025-01-09] MEDS: CALCIUM GLUC 1,000mg/50ml-NS 50 ML IV ONE ×3 (07:21→20:30)
[2025-01-09] MEDS: DEXTROSE (50%) 50ML SYRG IV ONE ×2 (07:21→20:30)
[2025-01-09] MEDS: InsuLIN REG 1unit/0.01ml Soln (100units/ml) IV ONE ×2 (07:22→20:30)
[2025-01-09] MEDS: DOPamine 1600MCG/ML D5W 250 ML IV ONE (08:07)
[2025-01-09] MEDS: FUROSEMIDE 40 MG/4 ML VIAL IV ONE (08:07)
[2025-01-09] MEDS: BUMETANIDE 2.5mg/10ml (0.25 mg/ml) INJ IV ONE (09:45)
[2025-01-09] MEDS: ALBUMIN 25% 100 ML IV SCH (10:40)
[2025-01-09 10:51] LABS: Base Excess -21.0 mmol/L (-2.0-3.0)
[2025-01-09] MEDS ORDERED: VANCOMYCIN PER PHARMACY 0 MG IV SCH (11:45)
--- NOTE | 2025-01-09 11:53 | DVHPN2 ---
Subjective Patient intubated and sedated Reviewed: Care Plan, H&P, Labs, Medications, Previous Orders Changes from previous H/P or p: Changes General: Per HPI Objective Vitals Vital Signs Date Time Temp Pulse Resp B/P (MAP) Pulse Ox O2 Delivery O2 Flow Rate FiO2 01/09/25 11:40 96.0 95 33 129/57 96.0 01/09/25 11:40 97 01/09/25 10:05 30 01/09/25 10:00 Mechanical Ventilator+ 01/08/25 14:00 Intake/Output Intake and Output 01/09/25 07:00 Intake Total 3946.457 ml Output Total 15 ml Balance 3931.457 ml Intake Oral 0 ml IV Total 3346.457 ml Blood Product 600 ml Output Urine Total 15 ml General Appearance: mild distress, severe distress HEENT: Atraumatic, PERRLA Lungs: Clear to auscultation, Normal air movement, Other (Mechanical ventilation) Cardiovascular: Normal S1, Normal S2 Abdomen: Normal bowel sounds, Soft, No tenderness, No hepatospenomegaly, No masses Genitourinary: No Apparent Abnormalities Musculoskeletal: Normal sensory function, Normal motor function Neuro: Other (Unable to assess) Skin: Dry, Intact Psych/Mental Status: Other (Unable to assess) Medications Current Medications Medications Dose Ordered Sig/Kimberly Route Start Time Stop Time Status Last Admin Dose Admin Nitroglycerin 0.4 mg Q5MINP PRN SL 12/30/24 19:15 Morphine Sulfate 2 mg Q30M PRN IV 12/30/24 19:15 Dextrose 50 ml UD PRN IV 12/30/24 19:15 01/09/25 06:48 50 ML Ondansetron HCl 4 mg Q4HP PRN IV 12/30/24 19:15 01/06/25 23:11 4 MG Acetaminophen 650 mg Q6HP PRN PO 12/30/24 19:15 01/06/25 03:38 650 MG Pantoprazole Sodium 40 mg DAILY IV 01/01/25 10:00 01/09/25 10:40 40 MG Piperacillin Sod/ Tazobactam Sod 100 ml @ 25 mls/hr Q12H IV 01/01/25 18:00 01/08/25 18:14 25 MLS/HR Ipratropium Fine 0.5 mg Q6HR NEB 01/04/25 12:00 01/09/25 06:19 0.5 MG Albuterol 2.5 mg Q6HR NEB 01/04/25 18:00 01/09/25 06:19 2.5 MG Hydralazine HCl 10 mg Q6HP PRN IV 01/05/25 17:15 01/07/25 13:32 10 MG Labetalol HCl 10 mg Q2HPRN PRN IV 01/06/25 08:45 01/07/25 11:25 10 MG Insulin Human Regular Q6HR SC 01/06/25 12:00 Cancel Diagnostic Test (Pha) 1 strip Q6HR 01/06/25 12:00 01/09/25 11:38 1 STRIP Insulin Human Regular Q6HR SC 01/06/25 12:00 01/08/25 11:59 3 UNITS Phenylephrine HCl 80 mg/Sodium Chloride 250 ml @ 7.5 mls/hr Q24H IV 01/08/25 13:15 01/09/25 11:15 33.75 MLS/HR Norepinephrine Bitartrate 32 mg/ Sodium Chloride 250 ml @ 0.938 mls/ hr Q24H IV 01/08/25 13:15 01/08/25 13:45 14.063 MLS/HR Midazolam HCl 50 ml @ 1 mls/hr Q24H IV 01/08/25 13:45 01/08/25 22:43 2 MLS/HR Fentanyl Citrate 250 ml @ 2.5 mls/hr Q24H IV 01/08/25 13:45 01/09/25 09:27 7.5 MLS/HR Vasopressin 20 units/Sodium Chloride 100 ml @ 9 mls/hr Q11H7M IV 01/08/25 14:00 01/09/25 01:07 9 MLS/HR Vasopressin 20 units/Sodium Chloride 100 ml @ 9 mls/hr Q11H7M IV 01/08/25 14:15 Cancel Epinephrine HCl 250 ml @ 7.5 mls/hr Q24H IV 01/08/25 21:45 01/09/25 00:04 7.5 MLS/HR Dopamine HCl/ Dextrose 250 ml @ 15.656 mls/ hr [id number] IV 01/09/25 04:45 01/09/25 05:04 15.656 MLS/HR Sodium Bicarbonate 150 ml/Sodium Chloride 1,150 ml @ 150 mls/hr Q7H40M IV 01/09/25 04:45 01/09/25 04:57 150 MLS/HR Albumin Human 100 ml @ 100 mls/hr Q1HR IV 01/09/25 10:00 01/09/25 11:59 Sodium Bicarbonate 150 ml/Dextrose 1,150 ml @ 100 mls/hr [id number] IV 01/09/25 11:45 UNV Vancomycin HCl 0 ml @ 0 mls/hr UD IV 01/09/25 11:45 UNV Laboratory Results Laboratory Tests 01/09/25 05:22 01/09/25 09:59 Chemistry Test 01/09/25 05:22 Calcium Level 7.8 mg/dL (8.7-10.4) L Magnesium Level 3.1 mg/dL (1.6-2.6) H Urinalysis Test 12/31/24 08:15 Urine Color Yellow (Yellow) Urine Clarity Ex.turbid (Clear) Urine pH 5.5 (5.0-9.0) Urine Specific Brant 1.016 (1.001-1.035) Urine Protein 1+ (Negative) H Urine Ketones Trace (Negative) Urine Blood 3+ /uL (Negative) H Urine Nitrite Negative (Negative) Urine Bilirubin Negative (Negative) Urine Urobilinogen Normal mg/dL (Negative) Urine Leukocyte Esterase 3+ /uL (Negative) Urine RBC 61 /hpf (0 - 4) Urine WBC Clumps Present /hpf (None Seen) Urine Microscopic WBC 59 /HPF (0-5) H Urine Squamous Epithelial Cells Few /hpf (<5) Urine Amorphous Crystals Few /hpf (None Seen) Urine Bacteria Few /hpf (None Seen) H Urine Glucose 1+ mg/dL (Normal) H Blood Gas Results Test 01/08/25 14:59 01/08/25 18:52 01/09/25 00:38 01/09/25 06:57 Arterial Blood pH 7.360 (7.350-7.450) 7.275 (7.350-7.450) 7.156 (7.350-7.450) 7.056 (7.350-7.450) FiO2 % 50.0 30.0 30.0 30.0 Test 01/09/25 10:36 Arterial Blood pH 7.098 (7.350-7.450) FiO2 % 30.0 Microbiology Microbiology Date/Time Source Procedure Growth Status 12/31/24 10:15 Nose MRSA Screen - Final Complete 12/31/24 08:15 Voided Urine Urine Culture - Final Complete 12/30/24 19:54 Sputum Gram Stain - Final Complete 12/30/24 19:54 Sputum Respiratory Culture - Final Complete 12/30/24 17:41 Blood Blood Culture - Final NO GROWTH AFTER 5 DAYS OF INCUBATION. Complete Labs and/or images reviewed: Labs reviewed by me, Image(s) reviewed by me Assessment/Plan Assessment/Plan Impression: -cardiopulmonary arrest -acute hypoxic respiratory failure -septic shock -complicated cystitis -hypoglycemia, questionable underlying diabetes mellitus -shock liver -acute kidney injury, vasomotor nephropathy -Cholelithiasis -bilateral lower extremity DVT -cor pulmonale with bilateral pulmonary emboli Plan: Events: Patient reintubated by myself yesterday. Patient had increase requirements of vasopressor therapy, now currently maxed on four vasopressors. Patient also required multiple PRBC transfusion, currently receiving 3rd with hemodialysis today. I placed a HD catheter to left femoral vein as well as arterial line to right femoral artery. -CT scan of the head. CT with IV contrast of abdomen and pelvis -broaden antibiotic therapy. -heparin drip stopped yesterday. IR consultation for possible IVC filter. -Nephrology consult: Recommendations reviewed -continue current ventilator settings. Titrate to keep saturation greater than 93% -PPI -repeat labs, chest x-ray, ABG in a.m. -patient has poor prognosis and discussed with the patient's son. Critical care time spent with patient discussing and formulating plan of care: 120 minutes. This does not include time spent performing procedures. This medical document was created using an electronic medical record system with nodila dictation system. Although this document has been carefully reviewed, there may still be some phonetic and typographical errors. These areas are purely typographical due to imperfections of the software programs, and do not reflect any compromise in the patient's medical care. Plan discussed with: Patient, Son, Other (RN, Credit Risk Associate) My Orders Orders - AUGUST BENDER NP Procedure Category Date Status Time Abg W/ Co-Ox RT 01/08/25 Logged 13:00 Sodium Chl 0.9% PHA 01/08/25 In Process (Ns... 13:15 Sodium Chl 0.9% PHA 01/08/25 In Process (Ns... 13:15 Ventilator Orders RT 01/08/25 Transmitted 13:12 Post Procedure Chest XY 01/08/25 Resulted 13:33 Midazolam Drip 50 PHA 01/08/25 In Process Mg/50ml (Versed Drip 5 13:45 Fentanyl Drip PHA 01/08/25 In Process 2500mcg/250mlns 13:45 Abg W/ Co-Ox RT 01/08/25 Logged 13:54 Respiratory Culture NANCIE 01/08/25 In Process W/ Gs 13:54 Sodium Chl 0.9% PHA 01/08/25 In Process (So... W/Vasopressin 14:00 Chest Portable XY 01/09/25 Resulted 04:00 * Radiologist Consult CONS 01/08/25 Transmitted 15:44 Stool Occult Blood LAB 01/08/25 Transmitted 15:44 Communication Order ORDERS 01/08/25 Transmitted 15:57 Communication Order ORDERS 01/08/25 Transmitted 15:00 Abg W/ Co-Ox RT 01/08/25 Logged 18:30 Abg W/ Co-Ox RT 01/09/25 Logged 07:16 * Cardiology Consult CONS 01/09/25 Transmitted 08:34 Abg W/ Co-Ox RT 01/09/25 Logged 10:30 Complete Blood Count LAB 01/09/25 Logged 15:00 D5w 5% (Dextrose 5%) PHA 01/09/25 Logged W/Sodium Bicarb 50m 11:45 Vancomycin Per PHA 01/09/25 Logged Pharmacy 11:[address] 01/09/25 Transmitted 11:42 Ct Ab Pel With Iv Con CT 01/09/25 Transmitted Only 11:42 Date of Service: Jan 09, 2025 Billing Provider: AUGUST BENDER NP Common Visit Codes: [id number] CARE 30-74 MIN, [id number] CARE-EACH +30MIN AUGUST BENDER NP Jan 09, 2025 11:53
--- NOTE | 2025-01-09 11:54 | CODING ---
Date of Service: Jan 09, 2025 Billing Provider: AUGUST BENDER NP Common Visit Codes: [id number] CARE-EACH +30MIN AUGUST BENDER NP Jan 09, 2025 11:54
--- NOTE | 2025-01-09 11:57 | DVHNC2 ---
Central Line Recorder of insertion practice: Position Classifier Occupation of strategic sourcing manager: Other (Luz Bender NP) Indication: Other (Hemodialysis) Room prepared for procedure: Yes Position Classifier performed hand hygien: Yes Maximal sterile barrier precau: Mask/Eye shield, Sterile gown, Cap, Sterlie gloves, Large sterlie drape Skin Preparation: Chlorhexidine gluconate, Providine iodine Skin preparation completely dr: Yes Insertion site: Left, Femoral Central line catheter type: [id number] dialysis Number of lumens: 2 Central line exchanged over a: No Antiseptic ointment applied to: No Post Assessment: Proper placement Informed consent obtained: Yes Risks/benefits/alt described: Yes Notes CPT code for ultrasound guidance: 11636 Date of Service: Jan 09, 2025 Billing Provider: AUGUST BENDER NP Common Visit Codes: PROCEDURE ONLY Procedure Codes: [id number] NON-TUNNEL CV CATH AUGUST BENDER NP Jan 09, 2025 11:57
--- NOTE | 2025-01-09 11:59 | DVHNC2 ---
Arterial Puncture Indication: Assess ventilatory status, Assess acid-base status Procedure: Sterile Preparation, Arterial Punct Obtained Location: Right Femoral Informed consent obtained: Yes Risks/benefits/alt described: Yes Notes CPT code for ultrasound guidance: 83083 Date of Service: Jan 09, 2025 Billing Provider: AUGUST BENDER NP Common Visit Codes: PROCEDURE ONLY Procedure Codes: [id number] LINE AUGUST BENDER NP Jan 09, 2025 11:59
[2025-01-09] MEDS ORDERED: VANCOMYCIN 1.5GM/300ML 300 ML IV ONE (12:15)
--- NOTE | 2025-01-09 12:54 | DVHINCON2 ---
Date Seen: Jan 09, 2025 Referring Physician ASHA Keenan Reason for Consultation shock, ?RV failure History of Present Illness This is a 59-year-old female patient who initially presented to the emergency room with chief complaint of shortness of breath. Upon emergency room arrival, the patient lost pulse and a code blue was called. CPR was initiated by hospital staff and ROSC was achieved after 6 minutes (see code blue assessment sheet). At the time of assessment, the patient is chemically sedated and mechanically ventilated. No family members at bedside. History obtained from medical records and bedside RN. Cardiology has been consulted at this time for possible RV failure. Initial twelve lead electrocardiogram seen in patient's chart from 01/01/2025 reveals normal sinus rhythm without any significant ST segment changes. At the time of assessment, the patient is in normal sinus rhythm with frequent PACs on quality assurance monitor. No significant past medical history documented. Patient has no previous visits to this facility and external medication list is unavailable. Past Medical History Unable to obtain Past Surgical History Unable to obtain Family History Family history reviewed. Social History Unable to obtain Allergies: Coded Allergies: NO KNOWN ALLERGIES (Unverified , 12/30/24) Home Meds Unable to obtain Current Medications Current Medications Medications (Trade) Dose Ordered Sig/Kimberly Route PRN Reason Start Time Stop Time Status Last Admin Phenylephrine HCl 80 mg/Sodium Chloride 250 ml @ 7.5 mls/hr Q24H IV 01/08/25 13:15 01/09/25 11:15 Norepinephrine Bitartrate 32 mg/ Sodium Chloride 250 ml @ 0.938 mls/ hr Q24H IV 01/08/25 13:15 01/08/25 13:45 Midazolam HCl 50 ml @ 1 mls/hr Q24H IV 01/08/25 13:45 01/08/25 22:43 Fentanyl Citrate 250 ml @ 2.5 mls/hr Q24H IV 01/08/25 13:45 01/09/25 09:27 Vasopressin 20 units/Sodium Chloride 100 ml @ 9 mls/hr Q11H7M IV 01/08/25 14:00 01/09/25 11:57 Vasopressin 20 units/Sodium Chloride 100 ml @ 9 mls/hr Q11H7M IV 01/08/25 14:15 Cancel Sodium Chloride 1,000 ml @ 100 mls/hr Q10H IV 01/08/25 14:45 01/08/25 20:53 DC 01/08/25 17:00 Sodium Bicarbonate 50 ml/ Sodium Chloride 1,050 ml @ 90 mls/hr [id number] IV 01/08/25 20:45 01/09/25 01:11 DC 01/08/25 21:08 Epinephrine HCl 250 ml @ 7.5 mls/hr Q24H IV 01/08/25 21:45 01/09/25 11:56 Sodium Bicarbonate 150 ml/Sodium Chloride 1,150 ml @ 100 mls/hr [id number] IV 01/09/25 01:15 01/09/25 04:47 DC 01/09/25 01:43 Dopamine HCl/ Dextrose 250 ml @ 15.656 mls/ hr [id number] IV 01/09/25 04:45 01/09/25 05:04 Sodium Bicarbonate 150 ml/Sodium Chloride 1,150 ml @ 150 mls/hr Q7H40M IV 01/09/25 04:45 01/09/25 12:29 DC 01/09/25 04:57 Albumin Human 100 ml @ 100 mls/hr Q1HR IV 01/09/25 10:00 01/09/25 11:59 DC Sodium Bicarbonate 150 ml/Dextrose 1,150 ml @ 100 mls/hr [id number] IV 01/09/25 11:45 Vancomycin HCl 0 ml @ 0 mls/hr UD IV 01/09/25 11:45 UNV Linezolid 300 ml @ 150 mls/hr Q12HR IV 01/09/25 22:00 UNV Review of Systems Constitutional: No symptom reported Ears, Nose, & Throat: No symptom reported Eyes: No symptom reported Neurological: No symptoms reported Pulmonary/Respiratory: Shortness of breath (prior to emergency room arrival) Cardiovascular: No symptom reported Gastrointestinal: No symptom reported Genitourinary: No symptom reported Musculoskeletal: No symptom reported Skin: No symptom reported Psychiatric: No symptom reported Endocrine: No symptom reported Hematologic/Lymphatic: No symptom reported Vital Signs Vital Signs Date Time Temp Pulse Resp B/P (MAP) Pulse Ox O2 Delivery O2 Flow Rate FiO2 01/09/25 12:00 102 33 143/53 (83) 97 30 01/09/25 11:40 96.0 96.0 01/09/25 10:00 Mechanical Ventilator+ 01/08/25 14:00 Physical Exam General Appearance: Calm, relaxed. Pulmonary/Respiratory: Clear, bilateral breaths sounds. Mechanically ventilated Cardiovascular/Chest: Regular rate and rhythm. Peripheral Pulses: 2+ Radial (R). 2+ Radial (L). 1+ Pedal (R). 1+ Pedal (L) Abdominal Exam: Normal bowel sounds. Large distended abdomen Ankle Exam: Negative ankle edema Lower extremities: Negative lower extremity edema Neuro/Mental Status: Chemically sedated. Bilateral pupils dilated and fixed Thoughts/Psych: Deferred Appearance: No acute distress. Skin Exam: Normal inspection. Normal color. Warm and dry. Labs/Diagnostic Data Labs Test 01/09/25 11:37 01/09/25 10:36 01/09/25 09:59 01/09/25 06:57 Range/Units POC Glucose 96 70-106 mg/dl Blood Gas Specimen Type Arterial Blood Gas Sample Site Arterial line Blood Gas Patient Temperature 37.0 Arterial Blood Date Drawn [id number] Arterial Blood pH 7.098 *L 7.350-7.450 Arterial Blood Partial Pressure CO2 23.2 L 32.0-45.0 mmHg Arterial Blood Partial Pressure O2 103.8 83.0-108.0 mmHg Arterial Blood HCO3 7.0 L 21.0-28.0 mmol/L Arterial Blood Oxygen Saturation 95.0 94.0-98.0 % Arterial Blood Base Excess -21.0 L -2.0-3.0 mmol/L Arterial Blood Oxyhemoglobin 93.7 L 94.0-98.0 % Arterial Blood Carboxyhemoglobin 0.3 L 0.5-1.5 % Arterial Blood Methemoglobin 1.1 0.0-1.5 % Sunday Test N/a Blood Gas Total Hemoglobin 8.40 L 12.0-16.0 g/dL Blood Gas Set Respiration Rate 20.0 Blood Gas Modality Vent - ac FiO2 % 30.0 Blood Gas Tidal Volume 450.0 Blood Gas PEEP or CPAP 5.0 Blood Gas Critical Value Read Back Yes Blood Gas Notified Whom dai Bernabe Blood Gas Notified Time [id number] Blood Gas Notified By Cooling Tower Operator brianna nelson Potassium Level 7.1 *H 3.5-5.1 mmol/L Blood Gas Spontaneous Rate 35 Test 01/09/25 05:22 01/08/25 08:54 01/08/25 04:45 01/07/25 13:45 Range/Units White Blood Count 36.0 #*H 4.4-10.8 10^3/uL Red Blood Count 2.31 L 4.0-5.20 10^6/uL Hemoglobin 7.0 *L 12.2-16.2 g/dL Hematocrit 23.7 #L 36.0-46.0 % Mean Corpuscular Volume 102.7 #H 80.0-100.0 fL Mean Corpuscular Hemoglobin 30.2 28.0-32.0 pg Mean Corpuscular Hemoglobin Concent 29.4 L 32.0-36.0 g/dL Red Cell Distribution Width 17.4 H 11.8-14.3 % Platelet Count 148 140-450 10^3/uL Mean Platelet Volume 10.3 6.9-10.8 fL Neutrophils (%) (Auto) 37.0-80.0 % Lymphocytes (%) (Auto) 10.0-50.0 % Monocytes (%) (Auto) 0.0-12.0 % Basophils (%) (Auto) 0.0-2.0 % Neutrophils # (Auto) 1.6-8.6 10 ^3/uL Lymphocytes # (Auto) 0.4-5.4 10 ^3/uL Monocytes # (Auto) 0-1.3 10 ^3/uL Differential Total Cells Counted 100.0 100 Neutrophils % (Manual) 76 37.0-80.0 Band Neutrophils % (Manual) 5 Lymphocytes % (Manual) 7 L 10.0-50.0 Monocytes % (Manual) 8 0-12 Eosinophils % (Manual) 0 0-7 Basophils % (Manual) 0 0.0-2.0 Metamyelocytes % (manual) 2 Myelocytes % (Manual) 2 Promyelocytes % (Manual) 0 Blast Cells % (Manual) 0 Reactive Lymphocytes 0 Platelet Estimate Adequate Sodium Level 156 #H 136-145 mmol/L Chloride Level 110 H 98-107 mmol/L Carbon Dioxide Level 12 L 20-31 mmol/L Anion Gap 34 H 5-15 Blood Urea Nitrogen 97 *H 9-23 mg/dL Creatinine 5.52 #H 0.550-1.02 mg/dL Glomerular Filtration Rate Calc 8 >90 mL/min BUN/Creatinine Ratio 17.6 10.0-20.0 Serum Glucose 87 74-106 mg/dL Calcium Level 7.8 L 8.7-10.4 mg/dL Magnesium Level 3.1 H 1.6-2.6 mg/dL Prothrombin Time 12.4 H 9.3-11.8 sec Prothrombin Time INR 1.19 H 0.9-1.15 Activated Partial Thromboplast Time 121.3 *H 24.5-34.5 SEC Eosinophils (%) (Auto) 0.1 0.0-7.0 % Eosinophils # (Auto) 0 0-0.8 10 ^3/uL Basophils # (Auto) 0 0-0.2 10 ^3/uL Nucleated Red Blood Cells 0.1 % Blood Gas EPAP 5 Blood Gas IPAP 12 Test 01/07/25 10:06 01/06/25 05:22 01/03/25 19:34 01/03/25 07:18 Range/Units Blood Gas Pressure Support 7 Total Bilirubin 0.6 0.2-1.0 mg/dL Aspartate Amino Transferase (AST) 75 H 13-40 U/L Alanine Aminotransferase (ALT) 159 H 7-40 U/L Alkaline Phosphatase 120 H 46-116 U/L Total Protein 6.4 5.7-8.2 g/dL Albumin 3.8 3.2-4.8 g/dL Blood Gas Spontaneous Tidal Volume 472 Blood Gas Inspiratory Pressure 19.0 Bl Gas Inspiratory/Expiratory Ratio 1:2.3 Test 01/01/25 16:17 01/01/25 05:15 01/01/25 04:40 12/31/24 13:24 Range/Units Troponin I High Sensitivity 631 *H </=34 ng/L Influenza Type A Antigen Positive Negative Influenza Type B Antigen Positive Negative SARS-CoV-2 Antigen (Rapid) Negative NEGATIVE Random Vancomycin Level 17.3 H 5-10 ug/mL D-Dimer, Quantitative > 35.20 H 0.0-0.49 mg/L FEU Test 12/31/24 08:15 12/31/24 04:55 12/30/24 19:47 Range/Units Urine Color Yellow Yellow Urine Clarity Ex.turbid Clear Urine pH 5.5 5.0-9.0 Urine Specific Cutler 1.016 1.001-1.035 Urine Protein 1+ H Negative Urine Ketones Trace Negative Urine Blood 3+ H Negative /uL Urine Nitrite Negative Negative Urine Bilirubin Negative Negative Urine Urobilinogen Normal Negative mg/dL Urine Leukocyte Esterase 3+ Negative /uL Urine RBC 61 0 - 4 /hpf Urine WBC Clumps Present None Seen /hpf Urine Microscopic WBC 59 H 0-5 /HPF Urine Squamous Epithelial Cells Few <5 /hpf Urine Amorphous Crystals Few None Seen /hpf Urine Bacteria Few H None Seen /hpf Urine Glucose 1+ H Normal mg/dL Erythrocyte Sedimentation Rate 5 0-20 mm/hr Hemoglobin A1c 5.6 <5.7 % A1C C-Reactive Protein High Sensitivity 2.72 H <1.0 mg/dL Lactic Acid Level 8.5 *H 0.4-2.0 mmol/L Microbiology Date/Time Source Procedure Growth Status 12/31/24 10:15 Nose MRSA Screen - Final Complete 12/31/24 08:15 Voided Urine Urine Culture - Final Complete 12/30/24 19:54 Sputum Gram Stain - Final Complete 12/30/24 19:54 Sputum Respiratory Culture - Final Complete 12/30/24 17:41 Blood Blood Culture - Final NO GROWTH AFTER 5 DAYS OF INCUBATION. Complete Assessment Cardiopulmonary arrest s/p CPR with return of spontaneous circulation Suspected RV failure Shock, septic versus hypovolemic Acute hypoxic respiratory failure secondary to bilateral pulmonary emboli Pulmonary hypertension Bilateral DVT's Severe anemia requiring multiple PRBC infusions Acute kidney injury, now requiring hemodialysis Plan/Recommendation We will continue with the following plan/recommendations (Dr. Bang): Initial transthoracic echocardiogram reveals an EF of 65%, RVSP 45 mmHg. Hypokinetic RV was noted and RV failure was suspected at that time. We will repeat a transthoracic echocardiogram. At the time of assessment, the patient is maxed on five vasopressors for hemodynamic support. Physical exam reveals patient has dilated and fixed pupils bilaterally. The patient is in critical condition and hemodynamically unstable. Likely very poor prognosis. Patient currently undergoing hemodialysis at time of assessment. Patient noted to have multiple laboratory derangements including worsening WBCs, hyperkalemia, elevated creatinine, critically low hemoglobin and hypoglycemia. Consider goals of care with family. Thank you for allowing us to care for this patient. Please call with any questions or concerns. Critical care time spent: 44 minutes This medical document was created using an electronic medical record system with voice recognition software and computerized dictation system. Although this document has been carefully reviewed, there might still be some phonetic and typographical errors. Occasional wrong-word or ``sound-alike substitutions may have occurred due to the inherent limitations of voice recognition software. These areas are purely typographical due to imperfections of the software programs and do not reflect any compromise in the patient's medical care. Please read the chart carefully and recognize, using context, where these substitutions have occurred. Plan discussed with: Other (Bedside RN) NYHA Physical activity limitations: NA Date of Service: Jan 09, 2025 Billing Provider: DIAMOND BROOKS Cardiology Common Codes: [id number] INP/OBS CARE (High) Cardiology Consultation Codes: [id number] CONSULT <45MIN DIAMOND BROOKS Jan 09, 2025 12:54
--- NOTE | 2025-01-09 13:43 | DVH ---
Limited Abdominal Ultrasound - Ascites Evaluation Date: 01/09/2025 01:26 PM Clinical History: retroperitoneal bleed Comparison: US GALLBLADDER on DOS: 01/01/25 Findings: Limited sonographic evaluation of the abdomen/pelvis was performed to assess for ascites. Complex fluid seen in the right upper quadrant and left upper quadrant. IMPRESSION: Small volume Complex fluid seen in the right upper quadrant and left upper quadrant. Retroperitoneal hemorrhage can not be excluded. END IMPRESSION:
[2025-01-09 15:22] LABS: Hematocrit 28.3 % (36.0-46.0); Hemoglobin 9.2 g/dL (12.2-16.2); Mean Corpuscular Hemoglobin 29.1 pg (28.0-32.0); Mean Corpuscular Volume 89.8 fL (80.0-100.0)
[2025-01-09] MEDS: SODIUM BICARB 50mEq/50ml Vial 150 ML in D5W 5% 1,000 ML IV SCH (15:30)
[2025-01-09 15:51] LABS: Total Cells Counted 100.0 (100)
[2025-01-09 16:42] LABS: Base Excess -13.2 mmol/L (-2.0-3.0)
--- NOTE | 2025-01-09 17:17 | MEDREC ---
[facility] Intervention Section I [facility] Intervention: Review courses of therapy (PT EXPECTING TO START HEMODIALYSIS. PT PLT COUNT 84, RECOMMEND SWITCHING LINEZOLID TO VANCOMYCIN DUE TO INCREASING RISK OF THROMBOCYTOPENIA) JAZZY FRAZIER [facility] RESIDENT Jan 09, 2025 17:17
--- NOTE | 2025-01-09 18:04 | DVHPN2 ---
Progress Note Date Seen: Jan 09, 2025 Medical Necessity Reason Pt with a Central, PICC or Fol: Yes The following are medically ne: Central Line, Smith Catheter Reason for smith catheter: Strict I&O Subjective Patient reports: Other (Events noted) Review of Systems: Deferred Objective vital signs Vital Sign Date Time Temp Pulse Resp B/P (MAP) Pulse Ox O2 Delivery O2 Flow Rate FiO2 01/09/25 17:59 110/49 01/09/25 17:47 95.7 92 32 94 204.3 01/09/25 16:06 30 01/09/25 16:00 Mechanical Ventilator+ 01/08/25 14:00 Total Intake and Output 01/08/25 01/08/25 01/09/25 15:00 23:00 07:00 Intake Total 400.301 ml 1200.565 ml 2345.591 ml Output Total 15 ml 0 ml Balance 400.301 ml 1185.565 ml 2345.591 ml medications Current Medications Medications Dose Ordered Sig/Kimberly Route Start Time Stop Time Status Last Admin Dose Admin Nitroglycerin 0.4 mg Q5MINP PRN SL 12/30/24 19:15 Morphine Sulfate 2 mg Q30M PRN IV 12/30/24 19:15 Dextrose 50 ml UD PRN IV 12/30/24 19:15 01/09/25 17:27 50 ML Ondansetron HCl 4 mg Q4HP PRN IV 12/30/24 19:15 01/06/25 23:11 4 MG Acetaminophen 650 mg Q6HP PRN PO 12/30/24 19:15 01/06/25 03:38 650 MG Pantoprazole Sodium 40 mg DAILY IV 01/01/25 10:00 01/09/25 10:40 40 MG Piperacillin Sod/ Tazobactam Sod 100 ml @ 25 mls/hr Q12H IV 01/01/25 18:00 01/09/25 17:24 25 MLS/HR Ipratropium [place] 0.5 mg Q6HR NEB 01/04/25 12:00 01/09/25 12:04 0.5 MG Albuterol 2.5 mg Q6HR NEB 01/04/25 18:00 01/09/25 12:04 2.5 MG Insulin Human Regular Q6HR SC 01/06/25 12:00 Cancel Diagnostic Test (Pha) 1 strip Q6HR 01/06/25 12:00 01/09/25 11:38 1 STRIP Insulin Human Regular Q6HR SC 01/06/25 12:00 01/08/25 11:59 3 UNITS Phenylephrine HCl 80 mg/Sodium Chloride 250 ml @ 7.5 mls/hr Q24H IV 01/08/25 13:15 01/09/25 11:15 33.75 MLS/HR Norepinephrine Bitartrate 32 mg/ Sodium Chloride 250 ml @ 0.938 mls/ hr Q24H IV 01/08/25 13:15 01/08/25 13:45 14.063 MLS/HR Midazolam HCl 50 ml @ 1 mls/hr Q24H IV 01/08/25 13:45 01/08/25 22:43 2 MLS/HR Fentanyl Citrate 250 ml @ 2.5 mls/hr Q24H IV 01/08/25 13:45 01/09/25 09:27 7.5 MLS/HR Vasopressin 20 units/Sodium Chloride 100 ml @ 9 mls/hr Q11H7M IV 01/08/25 14:00 01/09/25 11:57 9 MLS/HR Vasopressin 20 units/Sodium Chloride 100 ml @ 9 mls/hr Q11H7M IV 01/08/25 14:15 Cancel Epinephrine HCl 250 ml @ 7.5 mls/hr Q24H IV 01/08/25 21:45 01/09/25 17:59 33.75 MLS/HR Dopamine HCl/ Dextrose 250 ml @ 15.656 mls/ hr [id number] IV 01/09/25 04:45 01/09/25 13:07 34.444 MLS/HR Sodium Bicarbonate 150 ml/Dextrose 1,150 ml @ 100 mls/hr [id number] IV 01/09/25 11:45 01/09/25 15:30 100 MLS/HR Linezolid 300 ml @ 150 mls/hr Q12HR IV 01/09/25 22:00 Examination: GENERAL:Abnormal, LUNGS:Abnormal, MSK:Abnormal, NEURO:Abnormal laboratory and microbiology Laboratory Tests 01/09/25 15:09 01/09/25 09:59 01/09/25 05:22 Test 01/09/25 05:22 Range/Units Serum Glucose 87 74-106 mg/dL Microbiology Date/Time Source Procedure Growth Status 01/08/25 13:51 Sputum Gram Stain - Final Resulted 01/08/25 13:51 Sputum Respiratory Culture - Preliminary Resulted 12/31/24 10:15 Nose MRSA Screen - Final Complete 12/31/24 08:15 Voided Urine Urine Culture - Final Complete 12/30/24 17:41 Blood Blood Culture - Final NO GROWTH AFTER 5 DAYS OF INCUBATION. Complete Problem List/Assessment/Plan Problem List/Assessment/Plan Acute kidney injury likely ATN in the setting of shock Code blue status post resuscitation Ventilator-dependent hypoxic respiratory failure Acute anemia likely blood loss status post multiple PRBC Hyperkalemia RV failure, pulm HTN pulmonary embolism S/P THROMBECTOMY IN IR DVT influenza PNA Hypernatremia Recommendations Hemodialysis today tolerated okay no UF Her hemoglobin dropped significantly received 4 units PRBCs Her pupils are fixed and dilated I have called patient's son 2 times to inform the risks associated with dialysis as patient on multiple vasopressors---he did not picking supervisor the phone,,, 2 physician emergent consent was signed for urgent dialysis Grave prognosis We will consider dialysis tomorrow also Anticoagulation has been held Continuous monitoring of patient during hemodialysis was done by coordination care with staff,RN Plan discussed with: Other My Orders My Orders Orders - ANN PHILLIPS MD Procedure Category Date Status Time Dialysis Nursing BEBA 01/09/25 In Process Message 07:00 Document Fluid Input BEBA 01/09/25 In Process And Outpu 07:00 Hemodialysis Orders ORDERS 01/09/25 Transmitted 09:48 Hepatitis B Surface LAB 01/09/25 In Process Antigen 12:00 Dietary Evaluation Review Comments: 1) Consider TF Nepro Carbsteady @ 40ml/hr along with Pro-stat 1 pk BID. 2) TPN if NPO >7 days 3) Monitor NPO status, lab values, wt trend, I/O Expected Outcomes/Goals: To meet >75% estimated needs Lab values to improve Fu 2-3 days Critical Care Time (mins): 50 ANN PHILLIPS MD Jan 09, 2025 18:04
[2025-01-09 18:54] LABS: Albumin 3.5 g/dL (3.2-4.8); Anion Gap 32 (5-15); BUN/Creatinine Ratio 13.5 (10.0-20.0); Chloride 99 mmol/L (98-107); Sodium 144 mmol/L (136-145)
[2025-01-09 19:07] LABS: Alanine Aminotransferase > 6000 U/L (7-40); Bilirubin, Total 5.0 mg/dL (0.2-1.0); Carbon Dioxide 13 mmol/L (20-31); Glucose 134 mg/dL (74-106)
[2025-01-09 19:08] LABS: Alkaline Phosphatase 243 U/L (46-116); Blood Urea Nitrogen 49 mg/dL (9-23); Calcium 7.9 mg/dL (8.7-10.4); Total Protein 4.8 g/dL (5.7-8.2)
[2025-01-09 19:11] LABS: Partial Thromboplastin Time 54.0 SEC (24.5-34.5); Prothrombin Time 47.0 sec (9.3-11.8)
[2025-01-09 19:15] LABS: INR 5.22 (0.9-1.15)
[2025-01-09 19:22] LABS: Potassium 6.5 mmol/L (3.5-5.1)
[2025-01-09] MEDS: SODIUM ZIRCONIUM CYCL 10 GM PAK PO ONE (20:30)
[2025-01-09] MEDS: SODIUM ZIRCONIUM CYCL 10 GM PAK ONE (21:19)
[2025-01-09] MEDS ORDERED: DEXTROSE 10% 0 ML IV ONE (21:44)
[2025-01-09] MEDS ORDERED: DEXTROSE 50% SYRINGE 0 ML IV ONE (21:46)
[2025-01-09] MEDS ORDERED: ATROPINE SULF 1 MG/10ml SYR IV ONE (21:48)
[2025-01-09 21:56] LABS: Base Excess -17.9 mmol/L (-2.0-3.0)
[2025-01-09] MEDS ORDERED: LINEZOLID 600MG/300ML 300 ML IV SCH (22:00)
--- NOTE | 2025-01-09 22:51 | DVHINCON2 ---
Date Seen: Jan 09, 2025 Referring Physician ASHA Keenan Reason for Consultation shock, ?RV failure History of Present Illness This is a 59-year-old female with an unknown PMH who initially presented to the ED on 12/30 with complaints of shortness of breath. Upon arrival, the patient lost pulse and a code blue was called. CPR was initiated by hospital staff and ROSC was achieved after 6 minutes (see code blue assessment sheet). At the time of assessment, the patient is chemically sedated and mechanically ventilated. No family members are present at bedside. History was obtained from medical records and bedside RN. Cardiology has been consulted at this time for possible RV newton lure. Initial twelve lead electrocardiogram seen in patient's chart from 01/01/2025 reveals normal sinus rhythm without any significant ST segment changes. At the time of assessment, the patient is in normal sinus rhythm with frequent PACs on diagnostic cardiac sonographer. Patient has no previous visits/admissions to [facility] and external medication list is unavailable. Past Medical History Unable to obtain Past Surgical History Unable to obtain Allergies: Coded Allergies: NO KNOWN ALLERGIES (Unverified , 12/30/24) Current Medications Current Medications Medications (Trade) Dose Ordered Sig/Kimberly Route PRN Reason Start Time Stop Time Status Last Admin Sodium Bicarbonate 50 ml/ Sodium Chloride 1,050 ml @ 90 mls/hr [id number] IV 01/08/25 20:45 01/09/25 01:11 DC 01/08/25 21:08 Epinephrine HCl 250 ml @ 7.5 mls/hr Q24H IV 01/08/25 21:45 01/09/25 11:56 Sodium Bicarbonate 150 ml/Sodium Chloride 1,150 ml @ 100 mls/hr [id number] IV 01/09/25 01:15 01/09/25 04:47 DC 01/09/25 01:43 Dopamine HCl/ Dextrose 250 ml @ 15.656 mls/ hr [id number] IV 01/09/25 04:45 01/09/25 13:07 Sodium Bicarbonate 150 ml/Sodium Chloride 1,150 ml @ 150 mls/hr [id number] IV 01/09/25 04:45 01/09/25 12:29 DC 01/09/25 04:57 Albumin Human 100 ml @ 100 mls/hr Q1HR IV 01/09/25 10:00 01/09/25 11:59 DC 01/09/25 11:40 Sodium Bicarbonate 150 ml/Dextrose 1,150 ml @ 100 mls/hr [id number] IV 01/09/25 11:45 01/09/25 15:30 Vancomycin HCl 0 ml @ 0 mls/hr UD IV 01/09/25 11:45 01/09/25 12:36 DC Linezolid 300 ml @ 150 mls/hr Q12HR IV 01/09/25 22:00 Review of Systems Constitutional: No symptom reported Ears, Nose, & Throat: No symptom reported Eyes: No symptom reported Neurological: No symptoms reported Pulmonary/Respiratory: Shortness of breath (prior to emergency room arrival) Cardiovascular: No symptom reported Gastrointestinal: No symptom reported Genitourinary: No symptom reported Musculoskeletal: No symptom reported Skin: No symptom reported Psychiatric: No symptom reported Endocrine: No symptom reported Hematologic/Lymphatic: No symptom reported Vital Signs Vital Signs Date Time Temp Pulse Resp B/P (MAP) Pulse Ox O2 Delivery O2 Flow Rate FiO2 01/09/25 15:25 146/55 01/09/25 14:24 93 29 99 30 01/09/25 14:15 95.0 203.0 01/09/25 14:00 Mechanical Ventilator+ 01/08/25 14:00 Physical Exam GENERAL: Ill appearing, intubated on ventilator. EYES: PERRL, EOMI. Anicteric. HENT: Moist mucous membranes. LUNGS: Decreased breath sounds. CARDIOVASCULAR: Regular rate and rhythm. ABDOMEN: Soft, nontender and nondistended. EXTREMITIES: No edema. NEUROLOGIC: Chemically sedated. Bilateral pupils dilated and fixed. SKIN: Warm, dry. Labs/Diagnostic Data Labs Test 01/09/25 15:09 01/09/25 11:37 01/09/25 10:36 01/09/25 09:59 Range/Units POC Glucose 96 70-106 mg/dl Blood Gas Specimen Type Arterial Blood Gas Sample Site Arterial line Blood Gas Patient Temperature 37.0 Arterial Blood Date Drawn [id number] Arterial Blood pH 7.098 *L 7.350-7.450 Arterial Blood Partial Pressure CO2 23.2 L 32.0-45.0 mmHg Arterial Blood Partial Pressure O2 103.8 83.0-108.0 mmHg Arterial Blood HCO3 7.0 L 21.0-28.0 mmol/L Arterial Blood Oxygen Saturation 95.0 94.0-98.0 % Arterial Blood Base Excess -21.0 L -2.0-3.0 mmol/L Arterial Blood Oxyhemoglobin 93.7 L 94.0-98.0 % Arterial Blood Carboxyhemoglobin 0.3 L 0.5-1.5 % Arterial Blood Methemoglobin 1.1 0.0-1.5 % Sunday Test N/a Blood Gas Total Hemoglobin 8.40 L 12.0-16.0 g/dL Blood Gas Set Respiration Rate 20.0 Blood Gas Modality Vent - ac FiO2 % 30.0 Blood Gas Tidal Volume 450.0 Blood Gas PEEP or CPAP 5.0 Blood Gas Critical Value Read Back Yes Blood Gas Notified Whom dai Bernabe Blood Gas Notified Time [id number] Blood Gas Notified By [employer] Supervisor brianna nelson Potassium Level 7.1 *H 3.5-5.1 mmol/L Test 01/09/25 06:57 01/09/25 05:22 01/08/25 04:45 01/07/25 13:45 Range/Units Blood Gas Spontaneous Rate 35 Differential Total Cells Counted 100.0 100 Neutrophils % (Manual) 76 37.0-80.0 Band Neutrophils % (Manual) 5 Lymphocytes % (Manual) 7 L 10.0-50.0 Monocytes % (Manual) 8 0-12 Eosinophils % (Manual) 0 0-7 Basophils % (Manual) 0 0.0-2.0 Metamyelocytes % (manual) 2 Myelocytes % (Manual) 2 Promyelocytes % (Manual) 0 Blast Cells % (Manual) 0 Reactive Lymphocytes 0 Platelet Estimate Adequate Sodium Level 156 #H 136-145 mmol/L Chloride Level 110 H 98-107 mmol/L Carbon Dioxide Level 12 L 20-31 mmol/L Anion Gap 34 H 5-15 Blood Urea Nitrogen 97 *H 9-23 mg/dL Creatinine 5.52 #H 0.550-1.02 mg/dL Glomerular Filtration Rate Calc 8 >90 mL/min BUN/Creatinine Ratio 17.6 10.0-20.0 Serum Glucose 87 74-106 mg/dL Calcium Level 7.8 L 8.7-10.4 mg/dL Magnesium Level 3.1 H 1.6-2.6 mg/dL Eosinophils (%) (Auto) 0.1 0.0-7.0 % Eosinophils # (Auto) 0 0-0.8 10 ^3/uL Basophils # (Auto) 0 0-0.2 10 ^3/uL Nucleated Red Blood Cells 0.1 % Blood Gas EPAP 5 Blood Gas IPAP 12 Test 01/07/25 10:06 01/06/25 05:22 01/03/25 19:34 01/03/25 07:18 Range/Units Blood Gas Pressure Support 7 Total Bilirubin 0.6 0.2-1.0 mg/dL Aspartate Amino Transferase (AST) 75 H 13-40 U/L Alanine Aminotransferase (ALT) 159 H 7-40 U/L Alkaline Phosphatase 120 H 46-116 U/L Total Protein 6.4 5.7-8.2 g/dL Albumin 3.8 3.2-4.8 g/dL Blood Gas Spontaneous Tidal Volume 472 Blood Gas Inspiratory Pressure 19.0 Bl Gas Inspiratory/Expiratory Ratio 1:2.3 Test 01/01/25 16:17 01/01/25 05:15 01/01/25 04:40 12/31/24 13:24 Range/Units Troponin I High Sensitivity 631 *H </=34 ng/L Influenza Type A Antigen Positive Negative Influenza Type B Antigen Positive Negative SARS-CoV-2 Antigen (Rapid) Negative NEGATIVE Random Vancomycin Level 17.3 H 5-10 ug/mL D-Dimer, Quantitative > 35.20 H 0.0-0.49 mg/L FEU Test 12/31/24 08:15 12/31/24 04:55 12/30/24 19:47 Range/Units Urine Color Yellow Yellow Urine Clarity Ex.turbid Clear Urine pH 5.5 5.0-9.0 Urine Specific [place] 1.016 1.001-1.035 Urine Protein 1+ H Negative Urine Ketones Trace Negative Urine Blood 3+ H Negative /uL Urine Nitrite Negative Negative Urine Bilirubin Negative Negative Urine Urobilinogen Normal Negative mg/dL Urine Leukocyte Esterase 3+ Negative /uL Urine RBC 61 0 - 4 /hpf Urine WBC Clumps Present None Seen /hpf Urine Microscopic WBC 59 H 0-5 /HPF Urine Squamous Epithelial Cells Few <5 /hpf Urine Amorphous Crystals Few None Seen /hpf Urine Bacteria Few H None Seen /hpf Urine Glucose 1+ H Normal mg/dL Erythrocyte Sedimentation Rate 5 0-20 mm/hr Hemoglobin A1c 5.6 <5.7 % A1C C-Reactive Protein High Sensitivity 2.72 H <1.0 mg/dL Lactic Acid Level 8.5 *H 0.4-2.0 mmol/L Microbiology Date/Time Source Procedure Growth Status 01/08/25 13:51 Sputum Gram Stain - Final Resulted 01/08/25 13:51 Sputum Respiratory Culture - Preliminary Resulted 12/31/24 10:15 Nose MRSA Screen - Final Complete 12/31/24 08:15 Voided Urine Urine Culture - Final Complete 12/30/24 17:41 Blood Blood Culture - Final NO GROWTH AFTER 5 DAYS OF INCUBATION. Complete Assessment Cardiopulmonary arrest s/p CPR with return of spontaneous circulation. Suspected RV failure. Shock, septic versus hypovolemic. Acute hypoxic respiratory failure secondary to bilateral pulmonary emboli. Pulmonary hypertension. Bilateral DVT's. Severe anemia requiring multiple PRBC infusions. Acute kidney injury, now requiring hemodialysis. Plan/Recommendation I agree with your ongoing assessment and care of plan. Patient has been seen by Kathrin Cintron NP on my behalf, her and I discussed the plan with the patient. Initial transthoracic echocardiogram reveals an EF of 65%, RVSP 45 mmHg. Hypokinetic RV was noted and RV failure was suspected at that time. We will repeat a transthoracic echocardiogram. At the time of assessment, the patient is maxed on five vasopressors for hemodynamic support. Physical exam reveals patient has dilated and fixed pupils bilaterally. The patient is in critical condition and hemodynamically unstable. Likely very poor prognosis. Patient currently undergoing hemodialysis at time of assessment. Patient noted to have multiple laboratory derangements including worsening WBCs, hyperkalemia, elevated creatinine, critically low hemoglobin and hypoglycemia. Consider goals of care with family. Additional plan as per the hospital course. Mechanical ventilator parameters, treatment and adjustments have personally been reviewed by me and treatment plan by film spooler has also been reviewed. Plan discussed with: Other NYHA Physical activity limitations: NA Date of Service: Jan 09, 2025 Billing Provider: HIRAL STILL MD Cardiology Common Codes: 97932-CLRWQWH INP/OBS CARE (High) Cardiology Consultation Codes: [id number] CONSULT <80MIN HIRAL STILL MD Jan 09, 2025 15:43
--- NOTE | 2025-01-10 00:17 | DVHSR ---
APPROVED REPORT EXAM: Two-dimensional and M-mode echocardiogram with Doppler, color Doppler and Bubble Study. Blood Pressure: 96/42 mmHg INDICATION RV Failure with Bubble Study RISK FACTORS Height: 5' 5", Weight: 184 DIMENSIONS LVDd4.2 (3.8-5.7cm)LA (2D)3.6 (1.9-4.0cm)Aortic Root3.4 (2.0-3.7cm) LVDs2.9 (2.5-4.0cm)LA (MM) (1.9-4.0cm)Aortic Cusp Exc1.9 (1.5-2.0cm) EF (%) 60.0 (55-70%)Rt. Atrium3.6 (1.9-4.0cm)Asc. Aorta cm IVSd1.5 (0.7-1.1cm)RV (D) (1.8-2.4cm) PWd1.2 (0.7-1.1cm) Mitral Valve MitralMitral Stenosis E wave0.90m/sMV Mean GR.mmHg A wave0.80m/sMV Peak GR.mmHg E/A ratio1.12D MVAcm2 Aortic Valve Aortic ValveAortic Stenosis V11.40m/Garo Mean GR.7mmHg V21.90m/Garo Peak GR.15mmHg LVOT Diameter2.2 (1.8-2.4cm)Doppler AVA2.80cm2 Pulmonic Valve V21.00m/s Tricuspid Valve TR Velocity3.30m/s [id number] Conclusion NORMAL LV EF IS 65% NORMAL VALVES NORMAL RV FUNCTION RVSP IS 50 MM OF HG AND IS MODERATELY HIGH NO EFFUSION MODERATE DEGREE PULMONARY HYPERTENSION
--- NOTE | 2025-01-10 01:46 | RESUS ---
CODE BLUE ASSESSSMENT History of Events History of Events: Pt admitted on 12/30/24 for cardiopulmonary arrest to ICU status. Pt observed to go asystole on monitor. No palpable pulses. CODE BLUE. Initial Information Date: Jan 09, 2025 Time: : Location of Arrest: ICU (Central) Arrest Witnessed: Yes CPR started initial time: :28 CPR started by whom: Hospital Staff Pre-Hospital Care: Pre-Code Care (inpatient) Type of arrest: Cardiac, Respiratory, Adult, Witnessed Spontaneous Respirations: No Pulse Present: No Monitoring: ECG, Pulse Oximetry, Telemetry Crash Cart Opened and Supplies: Yes Airway Ventilation Breathing at Onset: Assisted Oxygen Delivery Method: Mechanical Ventilator Time of first Assisted Ventila: :28 Artificial Ventilation: Bag/Endo tube Intubation Time: 13:30 (01/08/25) Intubation Size: 8.0 cuffed Intubated by: ASHA Keenan Intubation Attempts: 1 Intubated orally: Yes Intubated Nasaly: No Tube secured at: 24 (cm at lip) Comments: Pt was extubated on 01/07/25 at 1028 and re-intubated on 01/08/25 at 1330 Circulation Circulation #1: Time: 21:28 Pulse Rate (adult): 0 Blood Pressure Systolic: 0 Blood Pressure Diastolic: 0 Temperature (Fahrenheit): 99.7 (F; rectal) Circulation #2: Time: 21:30 Pulse Rate (adult): 0 Blood Pressure Systolic: 0 Blood Pressure Diastolic: 0 Circulation Comment: Asystole Circulation #3: Time: 21:32 Pulse Rate (adult): 0 Blood Pressure Systolic: 0 Blood Pressure Diastolic: 0 Circulation Comment: Asystole Circulation #4: Time: 21:34 Pulse Rate (adult): 0 Blood Pressure Systolic: 0 Blood Pressure Diastolic: 0 Circulation Comment: Asystole Circulation #5: Time: 21:36 Pulse Rate (adult): 0 Blood Pressure Systolic: 0 Blood Pressure Diastolic: 0 Circulation Comment: VFib Circulation #6: Time: 21:38 Pulse Rate (adult): 0 Blood Pressure Systolic: 0 Blood Pressure Diastolic: 0 Circulation Comment: Asystole Circulation #7: Time: 21:40 Pulse Rate (adult): 0 Blood Pressure Systolic: 0 Blood Pressure Diastolic: 0 Circulation Comment: PEA Circulation #8: Time: 21:44 Pulse Rate (adult): 37 Circulation Comment: ROSC Circulation #9: Time: 21:47 Pulse Rate (adult): 0 Blood Pressure Systolic: 0 Blood Pressure Diastolic: 0 Circulation Comment: Pulses lost; CODE BLUE Circulation #10: Time: 21:49 Pulse Rate (adult): 0 Blood Pressure Systolic: 0 Blood Pressure Diastolic: 0 Circulation Comment: PEA; TOD Defibrillation Defbrillation : Time Defibrillator Applied: 21:36 EKG Rhythm: V-Fibrillation Compressions: Manual Time Defibrillator Shocked Pt.: 21:36 Defib. Joules: 120 EKG Rhythm: Asystole Medications & Response Medications and Responses #1: Medication Time: 21:30 ADULT Medications Given ADULT: Epinephrine 1 mg Route of Administration: IV Heart Rate: 0 Blood Pressure Systolic: 0 Blood Pressure Diastolic: 0 Respiratory Rate: 0 Medications and Responses #2: Medication Time: 21:31 ADULT Medications Given ADULT: Sodium Bacarbinate 50 meq, Calcium Chloride 10 mL Route of Administration: IV Heart Rate: 0 Blood Pressure Systolic: 0 Blood Pressure Diastolic: 0 Respiratory Rate: 0 Medications and Responses #3: Medication Time: 21:33 ADULT Medications Given ADULT: Sodium Bacarbinate 50 meq Route of Administration: IV Heart Rate: 0 Blood Pressure Systolic: 0 Blood Pressure Diastolic: 0 Respiratory Rate: 0 Medications and Responses #4: Medication Time: 21:34 ADULT Medications Given ADULT: Epinephrine 1 mg Route of Administration: IV Heart Rate: 0 Blood Pressure Systolic: 0 Blood Pressure Diastolic: 0 Respiratory Rate: 0 Medications and Responses #5: Medication Time: 21:38 ADULT Medications Given ADULT: Epinephrine 1 mg, D50 (amp) Route of Administration: IV Medication Comment: FSBS LO Heart Rate: 0 Blood Pressure Systolic: 0 Blood Pressure Diastolic: 0 Respiratory Rate: 0 Medications and Responses #6: Medication Time: 21:39 ADULT Medications Given ADULT: Sodium Bacarbinate 50 meq Route of Administration: IV Heart Rate: 0 Blood Pressure Systolic: 0 Blood Pressure Diastolic: 0 Respiratory Rate: 0 Medications and Responses #7: Medication Time: 21:42 ADULT Medications Given ADULT: Epinephrine 1 mg Route of Administration: IV Heart Rate: 0 Blood Pressure Systolic: 0 Blood Pressure Diastolic: 0 Respiratory Rate: 0 Medications and Responses #8: Medication Time: 21:43 ADULT Medications Given ADULT: D50 (amp) Route of Administration: IV Heart Rate: 0 Blood Pressure Systolic: 0 Blood Pressure Diastolic: 0 Respiratory Rate: 0 Medications and Responses #9: Medication Time: 21:45 ADULT Medications Given ADULT: Atropine 1 mg Route of Administration: IV Heart Rate: 38 Blood Pressure Systolic: 0 Blood Pressure Diastolic: 0 Respiratory Rate: 0 Medications and Responses #10: Medication Time: 21:48 ADULT Medications Given ADULT: Epinephrine 1 mg Route of Administration: IV Heart Rate: 0 Blood Pressure Systolic: 0 Blood Pressure Diastolic: 0 Respiratory Rate: 0 Procedure - Central Venous Cat Central venous catheter site: R IJ Comment: Placed prior to code Procedure - Muñiz Catheter Urinary Catheter Type/Location: Uretheral (Muñiz) Urine Appearance: Clear Urine Color: Yellow, Straw Muñiz Catheter Secured: Yes Comment: Placed prior to code Nurses Notes Raj Coma Scale Eye Opening: None (1) Raj Coma Scale Verbal: None (1) Vowinckel Coma Scale Motor: None (1) Glascow Total: 3 Pupil Reaction: Non Reactive Nurses Notes - Comment: FSBS read 'LO' during code Time Code Ended Time Code Ended: 21:49 Post Arrest Status: Outcome of code: Unsuccessful Patient pronounced by: ASHA Lamar - Hospitalist Time patient pronounced: 21:49 Code Team Present: ASHA Lamar - Hospitalist; Gisselel Herrmann RN - ICU Charge; Harleen Weiner RN - [facility] [employer]; Lauren Gerardo RN - Primary RN; Belia Griffin RN; Joyce Del Toro, RN; Cinda Gauthier RN; Franklin Lind RN - [place]; Sola Gerardo RN; Alta Griffin RT; Adali Griffin, CCT; Dr Fernandez - Resident; Dr Hutchinson - Resident Harleen Otero Jan 10, 2025 01:46
--- NOTE | 2025-01-10 08:03 | DVHDS2 ---
Discharge Summary Date of Admission Dec 30, 2024 at 19:07 Date of Discharge: Jan 09, 2025 Admitting Diagnosis Cardiopulmonary arrest Labs/Diagnostic Data: Laboratory Results Test 01/09/25 21:36 01/09/25 21:22 01/09/25 18:15 01/09/25 15:09 POC Glucose < 10 mg/dl (70-106) Blood Gas Specimen Type Arterial Blood Gas Sample Site Arterial line Blood Gas Patient Temperature 37.0 Arterial Blood Date Drawn [id number] Arterial Blood pH 7.171 (7.350-7.450) Arterial Blood Partial Pressure CO2 25.2 mmHg (32.0-45.0) Arterial Blood Partial Pressure O2 80.9 mmHg (83.0-108.0) Arterial Blood HCO3 9.0 mmol/L (21.0-28.0) Arterial Blood Oxygen Saturation 90.2 % (94.0-98.0) Arterial Blood Base Excess -17.9 mmol/L (-2.0-3.0) Arterial Blood Oxyhemoglobin 88.6 % (94.0-98.0) Arterial Blood Carboxyhemoglobin 0.6 % (0.5-1.5) Arterial Blood Methemoglobin 1.2 % (0.0-1.5) Sunday Test Modified Blood Gas Total Hemoglobin 8.30 g/dL (12.0-16.0) Blood Gas Set Respiration Rate 20.0 Blood Gas Modality Vent - ac FiO2 % 30.0 Blood Gas Tidal Volume 450.0 Blood Gas PEEP or CPAP 5.0 Blood Gas Critical Value Read Back Yes Blood Gas Notified Whom neymar Lamar np Blood Gas Notified Time [id number] Blood Gas Notified By nickolas Gallo, cameron Prothrombin Time 47.0 sec (9.3-11.8) Prothrombin Time INR 5.22 (0.9-1.15) Activated Partial Thromboplast Time 54.0 SEC (24.5-34.5) Sodium Level 144 mmol/L (136-145) Potassium Level 6.5 mmol/L (3.5-5.1) Chloride Level 99 mmol/L (98-107) Carbon Dioxide Level 13 mmol/L (20-31) Anion Gap 32 (5-15) Blood Urea Nitrogen 49 mg/dL (9-23) Creatinine 3.62 mg/dL (0.550-1.02) Glomerular Filtration Rate Calc 14 mL/min (>90) BUN/Creatinine Ratio 13.5 (10.0-20.0) Serum Glucose 134 mg/dL (74-106) Calcium Level 7.9 mg/dL (8.7-10.4) Total Bilirubin 5.0 mg/dL (0.2-1.0) Aspartate Amino Transferase (AST) > 6000 U/L (13-40) Alanine Aminotransferase (ALT) > 6000 U/L (7-40) Alkaline Phosphatase 243 U/L (46-116) Total Protein 4.8 g/dL (5.7-8.2) Albumin 3.5 g/dL (3.2-4.8) White Blood Count 31.4 10^3/uL (4.4-10.8) Red Blood Count 3.15 10^6/uL (4.0-5.20) Hemoglobin 9.2 g/dL (12.2-16.2) Hematocrit 28.3 % (36.0-46.0) Mean Corpuscular Volume 89.8 fL (80.0-100.0) Mean Corpuscular Hemoglobin 29.1 pg (28.0-32.0) Mean Corpuscular Hemoglobin Concent 32.4 g/dL (32.0-36.0) Red Cell Distribution Width 16.4 % (11.8-14.3) Platelet Count 84 10^3/uL (140-450) Mean Platelet Volume 9.3 fL (6.9-10.8) Neutrophils (%) (Auto) % (37.0-80.0) Lymphocytes (%) (Auto) % (10.0-50.0) Monocytes (%) (Auto) % (0.0-12.0) Basophils (%) (Auto) % (0.0-2.0) Neutrophils # (Auto) 10 ^3/uL (1.6-8.6) Lymphocytes # (Auto) 10 ^3/uL (0.4-5.4) Monocytes # (Auto) 10 ^3/uL (0-1.3) Differential Total Cells Counted 100.0 (100) Neutrophils % (Manual) 85 (37.0-80.0) Band Neutrophils % (Manual) 5 Lymphocytes % (Manual) 7 (10.0-50.0) Monocytes % (Manual) 3 (0-12) Eosinophils % (Manual) 0 (0-7) Basophils % (Manual) 0 (0.0-2.0) Metamyelocytes % (manual) 0 Myelocytes % (Manual) 0 Promyelocytes % (Manual) 0 Blast Cells % (Manual) 0 Reactive Lymphocytes 0 Platelet Estimate Decreased Large Platelets Few Test 01/09/25 06:57 01/09/25 05:22 01/08/25 04:45 01/07/25 13:45 Blood Gas Spontaneous Rate 35 Magnesium Level 3.1 mg/dL (1.6-2.6) Eosinophils (%) (Auto) 0.1 % (0.0-7.0) Eosinophils # (Auto) 0 10 ^3/uL (0-0.8) Basophils # (Auto) 0 10 ^3/uL (0-0.2) Nucleated Red Blood Cells 0.1 % Blood Gas EPAP 5 Blood Gas IPAP 12 Test 01/07/25 10:06 01/03/25 19:34 01/03/25 07:18 01/01/25 16:17 Blood Gas Pressure Support 7 Blood Gas Spontaneous Tidal Volume 472 Blood Gas Inspiratory Pressure 19.0 Bl Gas Inspiratory/Expiratory Ratio 1:2.3 Troponin I High Sensitivity 631 ng/L (</=34) Test 01/01/25 05:15 01/01/25 04:40 12/31/24 13:24 12/31/24 08:15 Influenza Type A Antigen Positive (Negative) Influenza Type B Antigen Positive (Negative) SARS-CoV-2 Antigen (Rapid) Negative (NEGATIVE) Random Vancomycin Level 17.3 ug/mL (5-10) D-Dimer, Quantitative > 35.20 mg/L FEU (0.0-0.49) Urine Color Yellow (Yellow) Urine Clarity Ex.turbid (Clear) Urine pH 5.5 (5.0-9.0) Urine Specific [place] 1.016 (1.001-1.035) Urine Protein 1+ (Negative) Urine Ketones Trace (Negative) Urine Blood 3+ /uL (Negative) Urine Nitrite Negative (Negative) Urine Bilirubin Negative (Negative) Urine Urobilinogen Normal mg/dL (Negative) Urine Leukocyte Esterase 3+ /uL (Negative) Urine RBC 61 /hpf (0 - 4) Urine WBC Clumps Present /hpf (None Seen) Urine Microscopic WBC 59 /HPF (0-5) Urine Squamous Epithelial Cells Few /hpf (<5) Urine Amorphous Crystals Few /hpf (None Seen) Urine Bacteria Few /hpf (None Seen) Urine Glucose 1+ mg/dL (Normal) Test 12/31/24 04:55 12/30/24 19:47 Erythrocyte Sedimentation Rate 5 mm/hr (0-20) Hemoglobin A1c 5.6 % A1C (<5.7) C-Reactive Protein High Sensitivity 2.72 mg/dL (<1.0) Lactic Acid Level 8.5 mmol/L (0.4-2.0) Other Laboratory Tests 01/09/25 18:15 01/09/25 15:09 Brief Hx & Hospital Course: History of Present Illness 59-year-old female presented with complaints of shortness for breath. Patient was emergently intubated in the emergency department for airway protection. Currently sedated and intubated. Unable to obtain further history. Course of hospitalization: After assuming care of the patient an echocardiogram, troponins, D-dimer, DVT study, as well as CT of the chest, abdomen, pelvis was ordered. Patient was placed on empiric antibiotics. Patient's D-dimer came back extremely elevated, with noted DVTs to bilateral lower extremities. Echocardiogram revealed normal ejection fraction with RV dilatation and strain. Troponins were also found to be elevated. Patient was found to have worsening acute kidney injury. Given the patient's high likelihood of cardiopulmonary arrest secondary to massive PE, discussion was made with radiologist and vp security for stat CT angiogram of the chest. Findings were discussed with interventional radiologist. Patient underwent pulmonary embolism thrombectomy with findings of thrombus in both right and left main pulmonary arteries. Patient was continued on heparin drip after procedure, which was started after positive DVT study. Patient had improvement with her urinary output. Patient was titrated down to 30% FiO2 and was subsequently extubated from mechanical ventilation. Patient was found to be hypertensive after extubation, then later that evening was noted to become hypotensive, requiring norepinephrine drip for blood pressure support. The following day, patient was assessed by myself to have worsening respiratory status, subsequently being reintubated without difficulty. Patient's shock worsened. Renal function also worsened with the patient now having hyperkalemia. Patient had hemodialysis catheter placed by myself as well as arterial line placed by myself, with the patient having hemodialysis yesterday. Post dialysis the patient's potassium remained elevated at 6.5. Covering providers as well as vp security was made aware of declining status as well as labs that were drawn during the evening. Subsequently the patient had cardiopulmonary arrest and . Patient's son Gabriele, was made aware of the patient's grave status throughout her hospitalization. Yesterday, I did discuss with him her critical status despite all medical modalities. Total time spent with patient discussing and formulating plan of care: 35 minutes. This medical document was created using an electronic medical record system with [employer] dictation system. Although this document has been carefully reviewed, there may still be some phonetic and typographical errors. These areas are purely typographical due to imperfections of the software programs, and do not reflect any compromise in the patient's medical care. Consults/Reason for consult Interventional Radiology: Pulmonary embolism Nephrology: Acute kidney injury, hyperkalemia Operations or Procedures PE thrombectomy Condition at Discharge: Poor Final Diagnosis/Problems List -cardiopulmonary arrest -acute hypoxic respiratory failure -septic shock -complicated cystitis -hypoglycemia, questionable underlying diabetes mellitus -shock liver -acute kidney injury, vasomotor nephropathy -Cholelithiasis -bilateral lower extremity DVT -cor pulmonale with bilateral pulmonary emboli Discharge Disposition: at Hospital [facility] Discharge Statement: "Patient was advised to return to the ER or call 911 if any headaches, dizziness, shortness of breath, chest pain, abdominal pain, bleeding, fevers, or worsening of medical condition. Patient was counseled about treatment plan, medications, possible side effects, patientverbalized understanding. All questions were answered to the best of my ability. This discharge took greater then 30 minutes in planning, reviewing documentation, counseling the patient, and discussing with other team members." ASSESSMENT ASSESSMENT Assessment Date of Service: Jan 10, 2025 Billing Provider: AUGUST BENDER NP Common Visit Codes: 18542-MAI/OBS DISCH DAY >30min AUGUST BENDER NP Jan 10, 2025 08:03
--- NOTE | 2025-01-10 09:37 | ECG ---
[facility] Test Date: 2025-01-09 Test Time: 21:04:44 Pat Name: REBECA WOODS Department: Respiratoy Room: 0266 A Gender: F Web Producer: : [id number] Requested By: DIAMOND BROOKS Order Number: [id number] Reading MD: Measurements Intervals [place] Rate: 127 P: 107 CO: 236 QRS: -33 QRSD: 202 T: 135 QT: 397 QTc: 578 Interpretive Statements Sinus tachycardia Prolonged CO interval Prominent P waves, nondiagnostic Left bundle branch block Please click the below link to view image of tracing.
== END 2025-01-09 21:49 | DRG 720 ==
LOC: ER 17:03 → EDBD 17:03 → OVERFLOW 19:07 → ICU CENTRL 12-31 10:19
PROVIDERS: ADMIT Nurse Practitioner Acute Care; ATTEND Nurse Practitioner Acute Care
PROC: 5A1955Z Respiratory Ventilation, Greater than 96 Consecutive Hours (ICD-10-PCS; principal; 2024-12-30)
PROC: 5A12012 Performance of Cardiac Output, Single, Manual (ICD-10-PCS; 2024-12-30)
PROC: 06HY33Z Insertion of Infusion Device into Lower Vein, Percutaneous Approach (ICD-10-PCS; 2024-12-30)
PROC: 0BH17EZ Insertion of Endotracheal Airway into Trachea, Via Natural or Artificial Opening (ICD-10-PCS; 2024-12-30)
PROC: 02HV33Z Insertion of Infusion Device into Superior Vena Cava, Percutaneous Approach (ICD-10-PCS; 2025-01-01)
PROC: B31T1ZZ Fluoroscopy of Left Pulmonary Artery using Low Osmolar Contrast (ICD-10-PCS; 2025-01-02)
PROC: B31S1ZZ Fluoroscopy of Right Pulmonary Artery using Low Osmolar Contrast (ICD-10-PCS; 2025-01-02)
PROC: 02CR3ZZ Extirpation of Matter from Left Pulmonary Artery, Percutaneous Approach (ICD-10-PCS; 2025-01-02)
PROC: 02CQ3ZZ Extirpation of Matter from Right Pulmonary Artery, Percutaneous Approach (ICD-10-PCS; 2025-01-02)
PROC: 30233N1 Transfusion of Nonautologous Red Blood Cells into Peripheral Vein, Percutaneous Approach (ICD-10-PCS; 2025-01-03)
PROC: 5A09357 Assistance with Respiratory Ventilation, Less than 24 Consecutive Hours, Continuous Positive Airway Pressure (ICD-10-PCS; 2025-01-07)
PROC: 0BH17EZ Insertion of Endotracheal Airway into Trachea, Via Natural or Artificial Opening (ICD-10-PCS; 2025-01-08)
PROC: 5A1945Z Respiratory Ventilation, 24-96 Consecutive Hours (ICD-10-PCS; 2025-01-08)
PROC: 5A09357 Assistance with Respiratory Ventilation, Less than 24 Consecutive Hours, Continuous Positive Airway Pressure (ICD-10-PCS; 2025-01-08)
PROC: 06HY33Z Insertion of Infusion Device into Lower Vein, Percutaneous Approach (ICD-10-PCS; 2025-01-09)
PROC: 03HY32Z Insertion of Monitoring Device into Upper Artery, Percutaneous Approach (ICD-10-PCS; 2025-01-09)
PROC: 5A12012 Performance of Cardiac Output, Single, Manual (ICD-10-PCS; 2025-01-09)
PROC: 5A1D70Z Performance of Urinary Filtration, Intermittent, Less than 6 Hours Per Day (ICD-10-PCS; 2025-01-09)
DX: A41.9 Sepsis, unspecified organism (principal); I26.09 Other pulmonary embolism with acute cor pulmonale; I46.9 Cardiac arrest, cause unspecified; J96.01 Acute respiratory failure with hypoxia; K72.00 Acute and subacute hepatic failure without coma; J11.00 Influenza due to unidentified influenza virus with unspecified type of pneumonia; J18.9 Pneumonia, unspecified organism; I50.810 Right heart failure, unspecified; I27.29 Other secondary pulmonary hypertension; N17.0 Acute kidney failure with tubular necrosis; R65.21 Severe sepsis with septic shock; N30.90 Cystitis, unspecified without hematuria; K80.20 Calculus of gallbladder without cholecystitis without obstruction; E87.6 Hypokalemia; E87.0 Hyperosmolality and hypernatremia; D64.9 Anemia, unspecified; E16.2 Hypoglycemia, unspecified; E87.5 Hyperkalemia; I82.413 Acute embolism and thrombosis of femoral vein, bilateral; I82.433 Acute embolism and thrombosis of popliteal vein, bilateral; Z79.899 Other long term (current) drug therapy; Z99.11 Dependence on respirator [ventilator] status
CPT/HCPCS: 31500; 36415; 36600; 37184; 70450; 71045; 71046; 71250; 71275; 74176; 76705; 76937; 80048; 80053; 80202; 81001; 82805; 82962; 83036; 83605; 83735; 84132; 84484; 85007; 85014; 85018; 85025; 85027; 85379; 85610; 85652; 85730; 86141; 86850; 86900; 86901; 86920; 87040; 87070; 87081; 87086; 87205; 87340; 87426; 87804; 90935; 92950; 93005; 93306; 93970; 94002; 94003; 94640; 94660; 94668; 96365; 99152; 99291; 99292; C1769; C1894; G0378; G9035; J0169; J1100; J1815; J2250; J2405; J2470; J2543; J2704; J3480; P9047; Q9956; Q9967